=== PATIENT | female | born 1935 | race Caucasian/White ===

== ENCOUNTER → 2017-09-06 16:06 | Outpatient (CLI) | payer MEDICARE, SELFPAY ==
--- NOTE | 2017-09-06 16:11 | RAD_ITS ---
STUDY: X-RAY - RIGHT SHOULDER REASON FOR EXAM: Female, 82 years old. Pain TECHNIQUE: 4 view(s) of the shoulder. COMPARISON: None. FINDINGS: There is moderate degenerative arthrosis of the glenohumeral articulation. There is degenerative arthrosis of the acromioclavicular joint without inferior osseous spur formation. Normal acromion. Normal humeral head and visualized proximal humerus. The soft tissue structures are unremarkable. Normal visualized pulmonary apex. RAD/Shoulder min 2 Views IMPRESSION: Degenerative arthrosis Electronically Signed: Lavell Thoams MD at 9:00 EDT , Service support ,
== END ==
PROVIDERS: Family Provider Family Medicine; PCP Family Medicine; Visit Provider Family Medicine
DX: M25.511 Pain in right shoulder (principal); R30.0 Dysuria
CPT/HCPCS: 73030; 81002

== ENCOUNTER → 2017-09-06 19:00 | Outpatient (CLI) | payer MEDICARE, SELFPAY ==
[2017-09-06 19:17] LABS: Color, Urine Yellow (Yellow); Glucose, Dipstick Normal (Normal); Ketone-Dipstick 5 mg/dl (Negative); Leukocyte Esterase-Dipstick 100 /ul (Negative); Nitrite-Dipstick Negative (Negative); Occult Blood-Urine 10 /ul (Negative); Protein-Dipstick 30 mg/dl (Negative); Specific Gravity, Urine 1.025 (1.002-1.030); Urine Clarity Cloudy (Clear); Urine Urobilinogen Normal (Normal)
[2017-09-06 19:20] LABS: Urine Bilirubin Dipstick 1 mg/dL (Negative)
== END ==
PROVIDERS: Family Provider Family Medicine; PCP Family Medicine; Visit Provider Family Medicine
DX: R30.0 Dysuria (principal)
CPT/HCPCS: 81002

== ENCOUNTER → 2017-09-17 14:25 | Outpatient (CLI) | payer MEDICARE, SELFPAY | PROVIDERS: Family Provider Family Medicine; PCP Family Medicine; Visit Provider Family Medicine | DX: R30.0 Dysuria (principal) | CPT/HCPCS: 87086; 87088 ==

== ENCOUNTER → 2017-09-18 16:14 | Outpatient (CLI) | payer MEDICARE, SELFPAY ==
[2017-09-18 18:15] LABS: Anion Gap 7 (5-15); BUN 14 mg/dL (7-18); Calcium,Total 9.3 mg/dL (8.5-10.1); Chloride 104 mmol/L (98-107); Creatinine, Serum 0.93 mg/dL (0.55-1.02); EST Glomerular Filtration Rate 61 mL/min (>60); Est Glom Filt Rate - Afr Amer 74 mL/min (>60); Glucose 233 mg/dL (74-106); Potassium 3.8 mmol/L (3.5-5.1); Sodium Level 140 mmol/L (136-145)
== END ==
PROVIDERS: Family Provider Family Medicine; PCP Family Medicine; Visit Provider Family Medicine
DX: N39.0 Urinary tract infection, site not specified (principal)
CPT/HCPCS: 36415; 80048

== ENCOUNTER → 2017-11-13 15:54 | Outpatient (CLI) | payer MEDICARE, SELFPAY ==
[2017-11-13 18:55] LABS: Absolute Lymphocyte Count 0.99 X10^3/ul (0.83-4.51); Absolute Neutrophil Count 6.5 X10^3/uL (2.0-7.7); Basophil# 0.01 X10^3/uL; Basophil% 0.1 % (0-1); Eosinophil# 0.09 X10^3/uL; Eosinophils% 1.1 % (0-5); Hematocrit 40.4 % (37-47); Hemoglobin 13.7 g/dl (12.0-15.0); Lymphocyte # 0.99 X10^3/ul (4.0); Mean Corp Hgb Conc 33.9 g/gl (32-36); Mean Corpuscular Hgb 30.1 pg (27.0-32.0); Mean Corpuscular Volume 88.8 fL (81-99); Mean Platelet Vol. 11.4 fl (6.2-12.0); Monocyte# 0.67 X10^3/uL; Monocyte% 8.2 % (0-10); Neutrophil # 6.45 X10^3/uL (2.7-7.7); Neutrophil % 78.5 % (47-70); POSITIVE COUNT NO; POSITIVE DIFFERENTIAL NO; POSITIVE MORPHOLOGY NO; Platelet Count 257 K/mm3 (150-450); RBC Distribution Width SD 41.8 fl (35.1-43.9); Red Blood Count 4.55 M/mm3 (4.2-5.4); White Blood Count 8.2 K/mm3 (4.4-11.0)
[2017-11-13 19:04] LABS: ALB/GLOB Ratio 1.2 RATIO (0.9-2.4); AST(SGOT) 15 U/L (15-37); Alanine Aminotransfer ALT/SGPT 24 U/L (13-56); Albumin, Serum 3.9 g/dL (3.2-5.0); Alkaline Phosphatase 61 U/L (45-117); Anion Gap 10 (5-15); BUN 12 mg/dL (7-18); BUN/Creat Ratio 15.5 RATIO (10-20); Calcium,Total 9.5 mg/dL (8.5-10.1); Chloride 101 mmol/L (98-107); Creatinine, Serum 0.77 mg/dL (0.55-1.02); EST Glomerular Filtration Rate 76 mL/min (>60); Est Glom Filt Rate - Afr Amer 92 mL/min (>60); Globulin 3.3 g/dL (2.2-4.2); Glucose 117 mg/dL (74-106); Potassium 4.1 mmol/L (3.5-5.1); Protein, Total 7.2 g/dL (6.4-8.2); Sodium Level 136 mmol/L (136-145); Thyroid Stim Hormone (TSH) 4.37 uIU/mL (0.358-3.74)
== END ==
PROVIDERS: Family Provider Family Medicine; PCP Family Medicine
DX: R53.83 Other fatigue (principal)
CPT/HCPCS: 36415; 80053; 84443; 85025

== ENCOUNTER → 2017-12-05 12:52 | Outpatient (CLI) | payer MEDICARE, SELFPAY ==
--- NOTE | 2017-12-05 12:54 | CT_ITS ---
STUDY: CT CHEST WITHOUT CONTRAST REASON FOR EXAM: Female, 82 years old. Bilateral mastectomies RADIATION DOSAGE (If Supplied By Facility): CTDIvol = ( 17.53 ) mGy, DLP = ( 630.76 ) mGycm TECHNIQUE: Transaxial imaging was performed without the administration of intravenous contrast material. Individualized dose optimization techniques were used for this CT. COMPARISON: None. FINDINGS: : TRACHEA, THYROID, ESOPHAGUS: No tracheomalacia,stricture or wall thickening. Thyroid and esophagus are normal CARDIOVASCULAR SYSTEM: The thoracic aorta is normal in gross morphology. The pulmonary trunk and the left and right pulmonary arteries are also grossly normal. The heart is not enlarged. RYAN AND LYMPH NODES: No hilar masses and no mediastinal, hilar, axillary or supraclavicular adenopathy LUNGS, LOW-ATTENUATION: No traction bronchiectasis, honeycombing,, lung cysts or cavitations there are extensive centrilobular emphysematous changes in both lung LUNGS, HIGH ATTENUATION: No nodules/masses, ground glass opacities/consolidations or increased interstitial markings. Small areas of scarring in the right apex and a 7.6 mm nodule in the right apex LUNGS, MOSAIC/CRAZY PAVING: Not evident PLEURA AND CHEST WALL: No plural effusions, pneumothoraces,rib fractures or any osteolytic/osteoblastic changes . The soft tissue chest wall including the breasts are normal. Evidence of bilateral mastectomies UPPER ABDOMEN: A 1.4 cm right adrenal nodule. CT/Chest without Contrast IMPRESSION: Extensive centrilobular emphysematous changes in both lungs. There is a scar in the right apex and a 7.6 mm nodule also in the right apex. Evidence of bilateral mastectomies A 1.4 cm right adrenal nodule. Electronically Signed: Moi Luevano MD at 7:00 EDT Tel , Service support ,
== END ==
PROVIDERS: Family Provider Family Medicine; PCP Family Medicine; Referring Provider Internal Medicine Critical Care Medicine; Visit Provider Internal Medicine Critical Care Medicine
DX: R06.02 Shortness of breath (principal); T66.XXXA Radiation sickness, unspecified, initial encounter
CPT/HCPCS: 71250

== ENCOUNTER → 2018-01-10 13:29 | Outpatient (CLI) | payer MEDICARE, SELFPAY ==
--- NOTE | 2018-01-11 06:32 | PFTCOMP_ITS ---
COMPLETE PULMONARY FUNCTION TEST INTERPRETATION Brief HPI: Patient is an 82 year old female, currently under the care of myself, who presents to [facility] for complete pulmonary function tests secondary to diagnosis of dyspnea. Respiratory therapist reports good effort and reproducible results. Interpretation: Forced expiration spirometry shows a moderately-severe large airways obstructive ventilatory defect with an FEV1 of 59% predicted. There is no significant bronchodilator response by strict ATS criteria. Spirograms are of good quality and plateau slowly, indicating slowly emptying areas of the lungs. The respiratory flow volume loop shows decreased expiratory flow rates at all lung volumes consistent with airway obstruction. Lung volumes by body plethysmography show a normal total lung capacity at 5 L, 97% predicted. FRC and RV are elevated out of proportion. Lung volume measurements are consistent with air-trapping. Diffusion capacity by carbon monoxide is decreased at 57% predicted. The airway resistance is elevated. Compared to previous pulmonary function tests from December 28, 2016, there has been a significant improvement in DLCO by 17%. 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 There has been some improvement in DLCO compared to previous testing.
== END ==
PROVIDERS: Family Provider Family Medicine; PCP Family Medicine; Referring Provider Internal Medicine Critical Care Medicine; Visit Provider Internal Medicine Critical Care Medicine
DX: R06.00 Dyspnea, unspecified (principal)
CPT/HCPCS: 94060; 94726; 94729

== ENCOUNTER → 2018-01-22 13:18 | Outpatient (CLI) | payer MEDICARE, SELFPAY ==
[2018-01-16 13:11] VITALS: BMI 29.5
[2018-01-22 14:33] LABS: AST(SGOT) 14 U/L (15-37); Alanine Aminotransfer ALT/SGPT 22 U/L (13-56); Albumin, Serum 3.8 g/dL (3.2-5.0); Alkaline Phosphatase 51 U/L (45-117); Anion Gap 10 (5-15); BUN 12 mg/dL (7-18); BUN/Creat Ratio 16.1 RATIO (10-20); Bilirubin, Direct 0.15 mg/dL (0.00-0.30); Calcium,Total 9.1 mg/dL (8.5-10.1); Chloride 101 mmol/L (98-107); Cholesterol 140 mg/dL (200); Creatinine, Serum 0.74 mg/dL (0.55-1.02); EST Glomerular Filtration Rate 80 mL/min (>60); Est Glom Filt Rate - Afr Amer 96 mL/min (>60); Glucose 114 mg/dL (74-106); High Density Lipoprotein 61 mg/dL; Potassium 3.9 mmol/L (3.5-5.1); Protein, Total 6.8 g/dL (6.4-8.2); Sodium Level 138 mmol/L (136-145); Triglycerides 137 mg/dL; Very Low Density Lipoprotein 27 mg/dL (5-40)
--- OUTSIDE RECORDS SUMMARY | 2018-03-06 08:25 | XMS RPT_ITS ---
:1935 Author Organization OHIP Support Name Relationship Address Phone NAKITA ANDERSON Unavailable Unavailable + [place] [address] DYE, MARÍA Unavailable [address] + [place] [address] R Unavailable Unavailable Unavailable JUSTIN NAKITA Unavailable . + [place] [address] DYE, MARÍA Unavailable [address] + [place] [address] R Unavailable Unavailable Unavailable JUSTIN NAKITA Unavailable Unavailable + [place] [address] DYE, MARÍA Unavailable [address] + [place] [address] R Unavailable Unavailable Unavailable COBLENTZ, NAKITA Unavailable Unavailable + [place] [address] DYE, MARÍA Unavailable [address] + [place] [address] R Unavailable Unavailable Unavailable BUSHRATZ, NAKITA Unavailable Unavailable + [place] [address] DYE, MARÍA Unavailable [address] + [place] [address] R Unavailable Unavailable Unavailable INDRALENANNELIESE, NAKITA Unavailable . + [place] [address] DYE, MARÍA Unavailable . + [place] [address] R Unavailable Unavailable Unavailable JUSTIN, NAKITA Unavailable Unavailable + DYE, MARÍA Unavailable Unavailable + R Unavailable Unavailable Unavailable JUSTIN NAKITA Unavailable Unavailable + DYE, MARÍA Unavailable Unavailable + R Unavailable Unavailable Unavailable JUSTIN NAKITA Unavailable Unavailable + DYE, MARÍA Unavailable Unavailable + R Unavailable Unavailable Unavailable COBLENTZ, NAKITA Unavailable Unavailable + DYE, MARÍA Unavailable Unavailable + R Unavailable Unavailable Unavailable COBLENTZ, NAKITA Unavailable Unavailable + DYE, MARÍA Unavailable Unavailable + R Unavailable Unavailable Unavailable COBISABELLETZ, NAKITA Unavailable NA + [place], [place] DYE, MARÍA Unavailable NA + [place], [place] R Unavailable Unavailable Unavailable COBLENTZ, NAKITA Unavailable NA + [place], [place] DYE, MARÍA Unavailable NA + [place], [place] R Unavailable Unavailable Unavailable Care Team Providers Name Role Phone DANIELLE YANG (ADVERTISING DISPATCH CLERK) Referring Unavailable DANIELLE YANG (ADVERTISING DISPATCH CLERK) Attending Unavailable DANIELLE YANG (ADVERTISING DISPATCH CLERK) Referring Unavailable DANIELLE YANG (ADVERTISING DISPATCH CLERK) Attending Unavailable DANIELLE YANG (ADVERTISING DISPATCH CLERK) Referring Unavailable DANIELLE YANG ([facility]) Referring Unavailable Ethan Velasquez Attending Unavailable Kimble, Sacha Referring Unavailable Kimble, aScha Primary Care Unavailable Kimble, Sacha Attending Unavailable Kimble, Sacha Referring Unavailable Kimble, Sacha Primary Care Unavailable Kimble, Sacha Attending Unavailable Kimble, Sacha Primary Care Unavailable Kimble, Sacha Referring Unavailable Kimble, Sacha Attending Unavailable Kimble, Sacha Primary Care Unavailable Boo Kaiser Attending Unavailable Shyanne, Sacha Primary Care Unavailable Kimble, Sacha Attending Unavailable Kimble, Sacha Referring Unavailable Kimble, Sacha Primary Care Unavailable Kimble, Sacha Primary Care Unavailable KRISTA STRONG Attending Unavailable Karan, Constantino Attending Unavailable Kimble, Sacha Referring Unavailable Karan, Constantino Attending Unavailable Karan, Constantino Referring Unavailable Kimble, Sacha Primary Care Unavailable Karan, Constantino Attending Unavailable Karan, Constantino Referring Unavailable Kimble, Sacha Primary Care Unavailable Karan, Constantino Attending Unavailable Karan, Constantino Referring Unavailable Nakita Arzola Attending Unavailable Kimble, Sacha Referring Unavailable Kimble, Sacha Attending Unavailable Kimble, Sacha Referring Unavailable Kimble, Sacha Primary Care Unavailable PROBLEMS PROBLEMS DATE TYPE CONDITION / CODE ATTENDING STATUS SOURCE 01/22/2018 Unknown E11.9 - Type 2 Sacha Kimble Active [facility] diabetes mellitus Community without Hospital complications / Repository E11.9(ICD-10) 01/16/2018 Unknown R91.1 - Solitary Arzola, Active [place] pulmonary nodule / [facility] R91.1(ICD-10) Hospital Repository 01/14/2018 Unknown R06.02 - Shortness KaranConstantino ralph Active [place] of breath / Community R06.02(ICD-10) Hospital Repository 11/21/2017 Unknown T66.XXXA - Constantino Russo Active [place] Radiation sickness, Community unspecified, Hospital initial encounter / Repository T66.XXXA(ICD-10) 11/13/2017 Unknown R53.83 - Other KRISTA STRONG Active [facility] fatigue / Community R53.83(ICD-10) Hospital Repository 11/06/2017 Active Cough / R05(ICD-10) NA Active [facility] Repository 09/17/2017 Unknown R30.0 - Dysuria / Sacha Kimble Active [place] R30.0(ICD-10) [facility] Repository 09/06/2017 Unknown M25.511 - Pain in KimbleSacha العراقي Active [facility] right shoulder / Community M25.511(ICD-10) Hospital Repository 05/03/2017 Active Malignant neoplasm NA Active [facility] of [facility]-outer [place] quadrant of right Repository female breast / C50.411(ICD-10) 05/03/2017 Active Estrogen receptor NA Active [facility] positive status [facility] (ER+) / Repository Z17.0(ICD-10) 02/20/2017 Unknown I10 - Essential Eva, Ethan Active [place] (primary) Community hypertension / Hospital I10(ICD-10) Repository PROCEDURES PROCEDURES No Procedure Records FoundRESULTS RESULTS BASIC METABOLIC Collected: 01/22/2018 Status: F Source: [place] PROFILE (BMP) 1:26 PM [facility] REPOSITORY Order Comment: PATIENT IS NOT FASTING. TYPE CODE TESTS RESULT OUT OF RANGE REFERENCE UNITS LAB L501.0100 74-106 mg/dL High GLU 114 Result Comment: Fasting Glucose result from 100 to 125 mg/dL suggests IMPAIRED HOMEOSTASIS per A.D.A. criteria. Please note revised GLUCOSE reference range effective 2017. LAB L501.1000 7-18 mg/dL Normal BUN 12 LAB L501.1100 0.55-1.02 mg/dL Normal CREAT,SERUM 0.74 Result Comment: The validity of the calculated GFR AND GFRAA in patients over 70 years has not been determined. Clinical correlation is essential. LAB L501.1110 >60 mL/min Normal EST GFR 80 Result Comment: Non- GFR Calc LAB L501.1115 >60 mL/min Normal EST GFR - AA 96 Result Comment: GFR Calc LAB L501.1300 10-20 RATIO Normal BUN/CRE 16.1 LAB L501.2200 8.5-10.1 mg/dL CA Normal 9.1 LAB L501.5300 136-145 mmol/L NA Normal 138 LAB L501.5600 3.5-5.1 mmol/L K Normal 3.9 LAB L501.5900 98-107 mmol/L CL Normal 101 LAB L501.6100 21.0-32.0 mmol/L Normal CO2 27.0 LAB L501.6200 5-15 Normal GAP 10 Performed By: #### L500.2500, L500.3400, L500.4100 #### [facility] [address] [place], [address] LIVER PROFILE Collected: 01/22/2018 Status: F Source: [place] 1:26 PM [facility] REPOSITORY Order Comment: PATIENT IS NOT FASTING. TYPE CODE TESTS RESULT OUT OF RANGE REFERENCE UNITS LAB L501.1500 6.4-8.2 g/dL Normal T PROT 6.8 LAB L501.1800 3.2-5.0 g/dL Normal ALB 3.8 LAB L501.1950 2.2-4.2 g/dL Normal GLOB 3.0 LAB L501.4100 15-37 U/L Low AST 14 LAB L501.4305 45-117 U/L Normal ALK P 51 LAB L501.4405 13-56 U/L Normal ALT 22 LAB L501.4600 0.20-1.00 mg/dL Normal T BILI 0.60 LAB L501.4700 0.00-0.30 mg/dL Normal D BILI 0.15 Performed By: #### L500.2500, L500.3400, L500.4100 #### [facility] [address] [place], [address] LIPID PROFILE Collected: 01/22/2018 Status: F [facility] [facility] Order Comment: PATIENT IS NOT FASTING. TYPE CODE TESTS RESULT OUT OF RANGE REFERENCE UNITS LAB L501.4900 200 mg/dL Normal CHOL 140 Result Comment: <200 mg/dL Desirable 200-240 mg/dL Borderline >240 mg/dL High Risk LAB L501.5000 mg/dL Normal TRIG 137 Result Comment: The drugs N-Acetylcysteine and Metamizole may falsely depress this assay. Serum Triglycerides Reference Interval Normal <150 mg/dL Borderline high 150 - 199 mg/dL High 200 - 499 mg/dL Very High > or = 500 mg/dL LAB L501.6400 mg/dL Normal HDL 61 Result Comment: The drugs N-Acetylcysteine and Metamizole may falsely depress this assay. Reference Range HDL <40 mg/dL Low HDL Cholesterol HDL >or= 60 mg/dL High HDL Cholesterol LAB L501.6500 0-130 mg/dL Normal LDL 52 LAB L501.6600 5-40 mg/dL Normal VLDL 27 Performed By: #### L500.2500, L500.3400, L500.4100 #### [facility] [address] [place], [address] PULMONARY VISIT REPORT Observed: 01/16/2018 Status: F Source: [place] 4:34 PM [facility] REPOSITORY [facility] [place] [address] [place] [address] OFFICE VISIT Date of Service: 01/16/18 MR#: [id number] Acct: [id number] Name: RICO OSPINA Rep #: [id number] : 1935 Provider: Nakita Arzola Age/Sex: 82/F Location: [facility] Status: Signed Assessment AND Plan 1. Lung nodule R91.1 Plan New. Incidentally found on CT of the chest when evaluating for cause of shortness of breath. The patient also reports that recently she was diagnosed with 2 small thyroid nodules. This in conjunction with her weight loss and now lung nodule led me to discuss with the patient the possibility of a biopsy versus PET scan. The patient would like to be somewhat more conservative and reimage in 3 months with a repeat CT of the chest. She will then follow-up with Dr. Russo in 3 months to discuss test results. She has been encouraged to contact the office if any new or worsening symptoms in the meantime. Orders Orders: 2. 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 She was personally instructed on how to use the medication and was provided with a sample in the office today. We will follow-up in 3 months, at which time we can evaluate how she is responding to this medication. Annual influenza vaccination offered and declined. The patient has been encouraged to contact the office with any signs or symptoms of his COPD exacerbation prior to her follow-up visit. COPD exacerbation symptoms were reviewed. Patient and daughter convey understanding. Plan Detail Other Orders Orders: Other Medications New: tiotropium bromide 2.5 mcg/actuation (Spiriva Respimat) 2 puffs Inhalation QDAY 1 ea 1RF administer at approximately the same time(s) each day Refilled: Follow Up 3 Months ([facility]) HPI 1 M FU: Chief Complaint: Shortness of breath HPI Comments Details: This patient presents the office today to follow-up after recently completing test results and being placed on a new medication. She is in a wheelchair, on room air and accompanied by her daughter. She has not been seen in the ED or urgent care for any respiratory illnesses since her last office visit. She has not required any antibiotics or prednisone for any breathing problems. At the last office visit she was started on Brio. She has been compliant with Brio daily. She reports rinsing her mouth out after each use. She denies any medication side effects such as sore throat or thrush. Unfortunately, she feels as though the shortness of breath did not improve and is possibly worse since starting Brio. She has not used her rescue inhaler since starting the Brio, she was unsure if she could use the Ventolin rescue inhaler in conjunction with her maintenance medication. She continues to experience shortness of breath on exertion. She denies any shortness of breath with rest or conversation. She denies any cough, sputum production or hemoptysis. She is not experience any wheezing, chest tightness, chest pain or palpitations. She has not tried any [id number]-[id number] medications for her symptoms. She does report slow and persistent unintentional weight loss. Denies any easy bruising. Denies any hemoptysis, hematemesis, hematochezia or melena stools. Denies any lymphadenopathy. Denies any lower extremity edema. Denies any fever, chills or body aches. Function test completed on January 10, 2018 interpreted as showing irreversible moderately severe large airway obstructive ventilatory defect resulting in air trapping. There has been some improvement in the DLCO in comparison to last testing. FVC 73% of predicted, FEV1 58% of predicted, FEV1/FVC 59% of predicted, TLC 97% of predicted, RV 134% of predicted and DLCO 57% of predicted. CT of the chest completed on December 05, 2017 reviewed, noted to show extensive central lobar emphysematous changes in both lungs, there is a scar in the right apex and a 7.6 mm nodule in the right apex. Intake Vital Signs01/16/18 Height 5 ft 6 in 01/16/18 Weight: 183 lb Intake Visit Reasons: 1 M FU Chief Complaint: Shortness of breath on exertion Allergies No Known Allergies Allergy (Verified 11/21/17 12:01) Medications Naproxen Sodium [Aleve] 220 mg PO DAILY 06/18/14 [History Confirmed 11/21/17] Cartilage/Collagen/Bor/Hyalur [Move Free Ultra Tablet] 1 ea PO DAILY 03/01/16 [History Confirmed 11/21/17] omega 1-dds-ook-fish oil 1,000 mg (120 mg-180 mg) capsule See Rx Instructions PO QDAY ea 02/02/17 [History Confirmed 11/21/17] esomeprazole magnesium 40 mg capsule,delayed release 40 mg PO QDAY cap 02/16/17 [History Confirmed 11/21/17] fluticasone 100 mcg-vilanterol 25 mcg/dose powder for inhalation 1 inh INHALATION Q24H #60 ea 11/21/17 [Rx Confirmed 11/21/17] metformin 500 mg tablet 500 mg PO BID tab 11/21/17 [History Confirmed 11/21/17] albuterol sulfate HFA 90 mcg/actuation aerosol inhaler 2 puff INHALATION Q4H PRN #18 g 01/16/18 [Rx Confirmed 01/16/18] tiotropium bromide 2.5 mcg/actuation mist for inhalation 2 puff INHALATION QDAY #1 ea 01/16/18 [Rx Confirmed 01/16/18] PFS Medical History Hyperlipidemia (Chronic) Left atrial enlargement (Chronic) Dyspnea on exertion (Chronic) Breast cancer, left breast (Chronic) Diabetes mellitus (Chronic) Surgical History History of left heart catheterization (Chronic) H/O left mastectomy (Chronic 1998) H/O right mastectomy (Chronic 03/13/16) Family History Father CAD (coronary artery disease) Hypertension Myocardial infarction Social History Smoking Status: Former smoker Review of Systems Const CONSTITUTIONAL: Positive fatigue; negative anorexia, body ache, chills, daytime sleepiness, fever(s), night sweats, oral thrush, stops breathing during sleep, weight loss, sleeping in chair, weight loss, weight gain, frequent colds, seasonal allergies, other, headache(s) or orthopnea EETM Ear Nose Throat Mouth: Positive hearing normal; negative hard of hearing, hoarseness, dry mouth in morning, change in vision, itchy eyes, eye pain, swallowing Difficulty, ear pain, nose bleed, headache(s), mouth pain, nasal congestion, nasal discharge, post nasal drip, sinus pain, sinus pressure, sore throat or other Cardio Cardiovascular: Negative chest pain, chest pain at rest, chest pain with activity, irregular heart rhythm, edema, shortness of breath when lying down, palpitations, murmur or other Resp Respiratory: Positive as per HPI and shortness of breath shortness of breath: Positive with activity and worsening; negative pain with cough, wheezing, chest congestion, cough, chest tightness, pain on inspiration, inhalers, increase use of rescue inhalers, snoring, apnea or other Gastro Gastrointestional: Negative bloody stools, change in appetite, difficulty swallowing, reflux, hematemesis, melena stool, loose stool, constipation or other Genitourinary: Negative blood in urine, nocturia, pain with urination or other Musc Musculoskeletal: Negative body pain, back pain, neck pain or other Skin/Breast Skin/Breast: Negative dry skin, itching, rash, unusual bruising, breast lump or other Neuro Neurological: Negative restless legs, confusion, weakness or other Psych Psychocological: Negative abnormal sleep pattern, anxiety, thoughts of hurting self/others, hopelessness or other Lymph Lymphatic: Negative easy bleeding, easy bruising, swollen lymph nodes or other Exam Const Constitutional: Positive conversant, cooperative, in no acute respiratory distress, well developed, well nourished, good hygiene and frail appearing Head Head: Positive normocephalic and atraumatic; negative cyanosis of lips/distal nose Eyes Eye: Positive clear conjunctiva; negative nystagmus or scleral abnormality Ears Ear: Positive hearing normal and external ears normal; negative hard of hearing Nose Nose: Positive external nose normal and no nasal discharge; negative epistaxis Mouth Mouth: Positive oral mucosae normal, no lesions, dentures and crowded posterior oropharynx; negative post nasal drip, malodorous breath or oral thrush present Mallampati Score: III: Mallampati Score Neck Neck: Positive normal visual inspection, full ROM and trachea midline; negative lymphadenopathy, JVD or tender Chest Wall Chest: Positive normal inspection of the chest and symmetric chest movement; negative increased A/P diameter Resp lung sounds: Positive clear to auscultation, diminished, normal expiratory time and normal respiratory effort; negative wheezes, rhonchi, rales, dullness to percussion or wheeze present on forced exhalation Cardio Cardiac: Negative murmur, regular rate or regular rhythm GI GI: Positive normal to inspection; negative distended Genitourinary: Positive deferred Musc Musculoskeletal: Positive ROM normal and in a wheelchair; negative kyphosis or scoliosis Skin Pulmonary Skin Exam: Positive intact; negative rash Pulses Pulse: Yes pulses normal x4 extremities Extremities Extremities: Yes capillary refill normal, No clubbing, No cyanosis, No edema Neuro Neurologic: Yes conversant, Yes no focal neuro deficits, Yes normal concentration, Yes understands questions, Yes cooperative, Yes normal cognition, Yes normal coordination Lymph Lymphatic: No lymphadenopathy, No tenderness, No cervical adenopathy Psych Appearance: Positive grossly normal, eye contact and well kempt Mental Status: Positive mental status grossly normal Mood: Positive congruent mood Affect: Positive normal affect Office Procedures Inhaler Training Inhaler Training Procedure performed by: Nakita Arzola Inhaler Training: Yes personally trained on inhaler use, sample provided, first dose given in the office and continue to monitor Coding Level of Care Code Off vis,est,level 4 Diagnoses Lung nodule R91.1 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 01/16/18 1634 <Electronically signed by Nakita Arzola NP-C> Date Nakita Arzola [employer]-C Cosigner Signature: Date (if applicable) CC: Sacha Kimble MD PULMONARY FUNCTION Observed: 01/12/2018 Status: F Source: [place] REPORT COMP 5:53 AM [facility] REPOSITORY [facility] Pulmonary Services/Neurology [address] [place] [address] MR#: [id number] Acct: [id number] Name: RICO OSPINA Rep #: [id number] : 1935 82 From: Constantino Russo MD Referring Dr: Constantino Russo MD Status: REG CLI Ordering Dr: Date: Location: [facility] Sex: F C COMPLETE PULMONARY FUNCTION TEST INTERPRETATION Brief HPI: Patient is an 82 year old female, currently under the care of myself, who presents to [facility] for complete pulmonary function tests secondary to diagnosis of dyspnea. Respiratory therapist reports good effort and reproducible results. Interpretation: Forced expiration spirometry shows a moderately-severe large airways obstructive ventilatory defect with an FEV1 of 59% predicted. There is no significant bronchodilator response by strict ATS criteria. Spirograms are of good quality and plateau slowly, indicating slowly emptying areas of the lungs. The respiratory flow volume loop shows decreased expiratory flow rates at all lung volumes consistent with airway obstruction. Lung volumes by body plethysmography show a normal total lung capacity at 5 L, 97% predicted. FRC and RV are elevated out of proportion. Lung volume measurements are consistent with air-trapping. Diffusion capacity by carbon monoxide is decreased at 57% predicted. The airway resistance is elevated. Compared to previous pulmonary function tests from December 28, 2016, there has been a significant improvement in DLCO by 17%. 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 There has been some improvement in DLCO compared to previous testing. 01/12/18 0553 <Electronically signed by Constantino Russo MD> Date Constantino Russo MD CC: Constantino Russo MD; Sacha Kimble MD Date Dictated: 01/11/18628 Date Transcribed: 01/11/18628 Police Officer Booking: OBED Signed CHEST WITHOUT Observed: 12/05/2017 Status: F Source: [place] CONTRAST 12:54 PM [facility] REPOSITORY [facility] Imaging Services [address] [place] [address] Chest without Contrast MR#: [id number] Acct: [id number] Name: RICO OSPINA Rep #: [id number] : 1935 F 82 From: Moi Luevano MD PCP: Sacha Kimble MD Status: REG CLI Study: Chest without Contrast Date of Exam: 12/05/17 Exam# [id number] Ordering Dr: Constantino Russo MD STUDY: CT CHEST WITHOUT CONTRAST REASON FOR EXAM: Female, 82 years old. Bilateral mastectomies RADIATION DOSAGE (If Supplied By Facility): CTDIvol = ( 17.53 ) mGy, DLP = ( 630.76 ) mGycm TECHNIQUE: Transaxial imaging was performed without the administration of intravenous contrast material. Individualized dose optimization techniques were used for this CT. COMPARISON: None. FINDINGS: : TRACHEA, THYROID, ESOPHAGUS: No tracheomalacia,stricture or wall thickening. Thyroid and esophagus are normal CARDIOVASCULAR SYSTEM: The thoracic aorta is normal in gross morphology. The pulmonary trunk and the left and right pulmonary arteries are also grossly normal. The heart is not enlarged. RYAN AND LYMPH NODES: No hilar masses and no mediastinal, hilar, axillary or supraclavicular adenopathy LUNGS, LOW-ATTENUATION: No traction bronchiectasis, honeycombing,, lung cysts or cavitations there are extensive centrilobular emphysematous changes in both lung LUNGS, HIGH ATTENUATION: No nodules/masses, ground glass opacities/consolidations or increased interstitial markings. Small areas of scarring in the right apex and a 7.6 mm nodule in the right apex LUNGS, MOSAIC/CRAZY PAVING: Not evident PLEURA AND CHEST WALL: No plural effusions, pneumothoraces,rib fractures or any osteolytic/osteoblastic changes . The soft tissue chest wall including the breasts are normal. Evidence of bilateral mastectomies UPPER ABDOMEN: A 1.4 cm right adrenal nodule. CT/Chest without Contrast IMPRESSION: Extensive centrilobular emphysematous changes in both lungs. There is a scar in the right apex and a 7.6 mm nodule also in the right apex. Evidence of bilateral mastectomies A 1.4 cm right adrenal nodule. Electronically Signed: Moi Luevano MD at 7:00 EDT Tel , Service support , CC: Constantino Russo MD; Sacha Kimble MD Police Officer Booking: Signed PULMONARY VISIT REPORT Observed: 11/21/2017 Status: F Source: [place] 3:53 PM [facility] REPOSITORY Pulmonary Medicine of [address] [place] [address] OFFICE VISIT Date of Service: 11/21/17 MR#: [id number] Acct: [id number] Name: RICO OSPINA Rep #: [id number] : 1935 Provider: Constantino Russo MD Age/Sex: 82/F [facility] Status: Signed Assessment AND Plan Problems 1. Shortness of breath R06.02 2. Radiation adverse effect T66.XXXA Plan Unclear etiology at this time. Patient is reporting significant worsening in overall condition compared to previous. Patient will be given a trial of Brio therapy. Patient was personally instructed on inhaler use by myself. We will also obtain a complete pulmonary function test for quantification and clarification of lung function. If there is been no significant change compared to previous, cardiac workup may be indicated. Patient does report a history of mitral regurgitation. We will also obtain a CT scan of the chest for evaluation of radiation injury leading to worsening in shortness of breath. Patient also is at risk for recurrent of malignancy given an 8 kg weight loss since January 2017. Initiate Breo. Obtain CT without contrast and complete pulmonary function test Orders Orders: Medications New: Discontinued: fluticasone-salmeterol 500-50 mcg/dose Discontinued Reaso2 inhalations Inhalation BID n: Order Changed HPI Shortness of breath: Chief Complaint: Shortness of breath on exertion Details: Patient is an 82-year-old female, currently under the care of Dr. Kimble, who presents for evaluation secondary to worsening shortness of breath on exertion. Patient has been seen previously by this practice, but was lost to follow-up over the last year and a half secondary to doing okay. Patient reports that in July she started to have issues with recurrent bladder infections, diarrhea and fatigue. Patient is also noted significant worsening in her dyspnea on exertion. Patient reports that she was transitioned from pro-air to Ventolin therapy. Patient did not refill her Advair therapy and has noted that her exercise tolerance has changed significantly. Patient states she has been using her albuterol every 4 hours. Patient denied any complications with Advair leading to noncompliance. Patient does report a cough on a daily basis. Patient reports her exercise tolerance at approximately 15-30 feet. Patient does state that she has had breast cancer in the past and received 29 out of 30 radiation treatments. Patient states that she had this completed in 2016, but her daughter believes this was 2017. Patient denies any hemoptysis. Patient does report stiffening of the skin over the right breast. Patient also reports a weight loss of approximately 13 pounds over the last 3 months. Patient attributes this to the diarrhea and lack of adequate appetite. Patient states she has been using Flonase and [place] spray with limited response. Documentation reviewed 12 pages of documentation were reviewed including old office visit. Patient did have a complete PFT completed in June 2016 showing a mild restrictive ventilatory defect with reduction diffusing capacity out of proportion patient was requested to have a polysomnogram, but it appears as though this was not completed. Previous notes indicate that radiation was in February 2016. HPI Comments Details: Intake Vital Signs11/21/17 Height 5 ft 6 in 11/21/17 Weight: 84.822 kg Intake Visit Reasons: Shortness of breath Hand Straightener Required: No Is patient in pain?: No Allergies No Known Allergies Allergy (Verified 11/21/17 12:01) Medications Naproxen Sodium [Aleve] 220 mg PO DAILY 06/18/14 [History Confirmed 11/21/17] Cartilage/Collagen/Bor/Hyalur [Move Free Ultra Tablet] 1 ea PO DAILY 03/01/16 [History Confirmed 11/21/17] omega 2-xfq-fgg-fish oil 1,000 mg (120 mg-180 mg) capsule See Rx Instructions PO QDAY ea 02/02/17 [History Confirmed 11/21/17] esomeprazole magnesium 40 mg capsule,delayed release 40 mg PO QDAY cap 02/16/17 [History Confirmed 11/21/17] albuterol sulfate HFA 90 mcg/actuation aerosol inhaler 2 puff INHALATION Q4H PRN #18 g 11/07/17 [Rx Confirmed 11/21/17] fluticasone 100 mcg-vilanterol 25 mcg/dose powder for inhalation 1 inh INHALATION Q24H #60 ea 11/21/17 [Rx Confirmed 11/21/17] metformin 500 mg tablet 500 mg PO BID tab 11/21/17 [History Confirmed 11/21/17] PFSH Medical History Hyperlipidemia (Chronic) Left atrial enlargement (Chronic) Dyspnea on exertion (Chronic) Breast cancer, left breast (Chronic) Diabetes mellitus (Chronic) Surgical History History of left heart catheterization (Chronic) H/O left mastectomy (Chronic 1998) H/O right mastectomy (Chronic 03/13/16) Family History Father CAD (coronary artery disease) Hypertension Myocardial infarction Social History Smoking Status: Former smoker Review of Systems Const CONSTITUTIONAL: Positive weight loss and fatigue; negative anorexia, body ache, chills, daytime sleepiness, fever(s), night sweats, oral thrush, stops breathing during sleep, sleeping in chair, weight loss, weight gain, frequent colds, seasonal allergies, other, headache(s) or orthopnea EETM Ear Nose Throat Mouth: Positive hearing normal; negative hard of hearing, hoarseness, dry mouth in morning, change in vision, itchy eyes, eye pain, swallowing Difficulty, ear pain, nose bleed, headache(s), mouth pain, nasal congestion, nasal discharge, post nasal drip, sinus pain, sinus pressure, sore throat or other Cardio Cardiovascular: Positive murmur (Grade 2 out of 6 diastolic murmur noted at the apex); negative chest pain, chest pain at rest, chest pain with activity, irregular heart rhythm, edema, shortness of breath when lying down, palpitations or other Resp Respiratory: Positive as per HPI, shortness of breath shortness of breath: Positive worsening and with activity, cough cough: Positive non-productive and inhalers; negative pain with cough, wheezing, chest congestion, chest tightness, pain on inspiration, increase use of rescue inhalers, snoring, apnea or other Gastro Gastrointestional: Positive change in appetite and loose stool; negative bloody stools, difficulty swallowing, reflux, hematemesis, melena stool, constipation or other Genitourinary: Negative blood in urine, nocturia, pain with urination or other Musc Musculoskeletal: Negative body pain, back pain, neck pain or other Skin/Breast Skin/Breast: Negative dry skin, itching, rash, unusual bruising, breast lump or other Neuro Neurological: Negative restless legs, confusion, weakness or other Psych Psychocological: Negative abnormal sleep pattern, anxiety, thoughts of hurting self/others, hopelessness or other Lymph Lymphatic: Negative easy bleeding, easy bruising, swollen lymph nodes or other Exam Const Constitutional: Positive conversant, cooperative, in no acute respiratory distress, well developed, well nourished, good hygiene, frail appearing and obese; negative wearing supplemental oxygen or ill appearing Head Head: Positive normocephalic and atraumatic; negative cyanosis of lips/distal nose, frontal sinus tenderness or maxillary sinus tenderness Eyes Eye: Positive clear conjunctiva; negative nystagmus, scleral abnormality or cataract present Ears Ear: Positive hearing normal and external ears normal; negative hard of hearing Nose Nose: Positive external nose normal, septum normal and clear nasal discharge; negative epistaxis or nasal polyp Mouth Mouth: Positive oral mucosae normal, no lesions, dentures and crowded posterior oropharynx; negative post nasal drip, malodorous breath or oral thrush present Mallampati Score: III: Mallampati Score Neck Neck: Positive normal visual inspection, full ROM and trachea midline; negative lymphadenopathy or JVD Chest Wall Chest: Positive symmetric chest movement and increased A/P diameter; negative crepitus or tenderness Resp lung sounds: Positive wheeze present on forced exhalation, prolonged expiratory time and diminished; negative wheezes, rhonchi, rales, use of accessory muscles or dullness to percussion Cardio Cardiac: Positive murmur (Grade 2 out of 6 diastolic murmur noted at the apex), regular rate, regular rhythm, S1 normal and S2 normal GI GI: Positive normal to inspection, normal bowel sounds and obese; negative distended, ascites or epigastric tenderness Genitourinary: Positive deferred Musc Musculoskeletal: Positive using an assistive device for ambulation and kyphosis; negative scoliosis Skin Pulmonary Skin Exam: Positive intact and dermal atrophy; negative rash, lesion, ulcers or erythema Pulses Pulse: Yes radial pulses present Extremities Extremities: Yes capillary refill normal, No clubbing, No cyanosis, No edema, No stasis dermatitis Neuro Neurologic: Yes conversant, Yes no focal neuro deficits, Yes normal coordination, Yes normal concentration, Yes cooperative, Yes normal cognition, Yes understands questions Lymph Lymphatic: No lymphadenopathy Psych Appearance: Positive grossly normal Mental Status: Positive mental status grossly normal Mood: Positive congruent mood Affect: Positive normal affect Office Procedures Inhaler Training Inhaler Training Procedure performed by: Constantino Russo Inhaler Training: Yes personally trained on inhaler use, sample provided, expresses understanding and continue to monitor; no first dose given in the office Coding Level of Care Code Off vis,est,level 5 Diagnoses Shortness of breath R06.02 Radiation adverse effect T66.XXXA 11/21/17 1553 <Electronically signed by Constantino Russo MD> Date Constantino Russo MD Cosigner Signature: Date (if applicable) CC: Sacha Kimble MD CBC W/DIFF, AUTOMATED Collected: 11/13/2017 Status: F Source: [place] 4:17 PM [facility] REPOSITORY TYPE CODE TESTS RESULT OUT OF RANGE REFERENCE UNITS LAB L100.1000 4.4-11.0 K/mm3 Normal WBC 8.2 LAB L100.1200 4.2-5.4 M/mm3 Normal RBC 4.55 LAB L100.1300 12.0-15.0 g/dl Normal HGB 13.7 LAB L100.1400 37-47 % Normal HCT 40.4 LAB L100.1500 81-99 fL Normal MCV 88.8 LAB L100.1600 27.0-32.0 pg Normal MCH 30.1 LAB L100.1700 32-36 g/gl Normal MCHC 33.9 LAB L100.1810 11.6-14.6 % Normal RDW CV 13.0 LAB L100.1820 35.1-43.9 fl Normal RDW SD 41.8 LAB L100.1900 150-450 K/mm3 Normal PLT 257 LAB L100.2000 6.2-12.0 fl Normal MPV 11.4 LAB L100.2100 47-70 % High NEUT% 78.5 LAB L100.2200 19-41 % Low LY% 12.0 LAB L100.2300 0-10 % Normal MONO% 8.2 LAB L100.2400 0-5 % Normal EO% 1.1 LAB L100.2500 0-1 % Normal BASO% 0.1 LAB L100.2550 0.0-0.9 % Normal IM GRAN % 0.100 Result Comment: IG% - Immature Granulocytes (promyelocytes, myelocytes and metamyelocytes) > 1% indicates that a LEFT SHIFT is Present. LAB L100.2620 2.0-7.7 X10 3/uL Normal Absolute Neut 6.5 LAB L100.2720 0.83-4.51 X10 3/ul Normal Absolute Lymph 0.99 Performed By: #### L100.0100 #### [facility] [address] [place], [place], [id number] COMPREHENSIVE METABOLIC Collected: 11/13/2017 Status: F Source: [facility] 4:17 PM [facility] REPOSITORY TYPE CODE TESTS RESULT OUT OF RANGE REFERENCE UNITS LAB L501.0100 74-106 mg/dL High GLU 117 Result Comment: Fasting Glucose result from 100 to 125 mg/dL suggests IMPAIRED HOMEOSTASIS per A.D.A. criteria. Please note revised GLUCOSE reference range effective 2017. LAB L501.1000 7-18 mg/dL Normal BUN 12 LAB L501.1100 0.55-1.02 mg/dL Normal CREAT,SERUM 0.77 Result Comment: The validity of the calculated GFR AND GFRAA in patients over 70 years has not been determined. Clinical correlation is essential. LAB L501.1110 >60 mL/min Normal EST GFR 76 Result Comment: Non- GFR Calc LAB L501.1115 >60 mL/min Normal EST GFR - AA 92 Result Comment: GFR Calc LAB L501.1300 10-20 RATIO Normal BUN/CRE 15.5 LAB L501.1500 6.4-8.2 g/dL T Normal PROT 7.2 LAB L501.1800 3.2-5.0 g/dL Normal ALB 3.9 LAB L501.1950 2.2-4.2 g/dL Normal GLOB 3.3 LAB L501.2000 0.9-2.4 RATIO Normal A/G 1.2 LAB L501.2200 8.5-10.1 mg/dL CA Normal 9.5 LAB L501.4100 15-37 U/L Normal AST 15 Result Comment: Slight Hemolysis, Result may be falsely increased. LAB L501.4305 45-117 U/L Normal ALK P 61 LAB L501.4405 13-56 U/L Normal ALT 24 LAB L501.4600 0.20-1.00 mg/dL Normal T BILI 0.60 LAB L501.5300 136-145 mmol/L Normal NA 136 LAB L501.5600 3.5-5.1 mmol/L Normal K 4.1 Result Comment: Slight Hemolysis, Result may be falsely increased. LAB L501.5900 98-107 mmol/L Normal CL 101 LAB L501.6100 21.0-32.0 mmol/L Normal CO2 25.0 LAB L501.6200 5-15 Normal GAP 10 Performed By: #### L500.4050, L501.9520 #### [facility] [address] [place], [address] THYROID STIM HORMONE Collected: 11/13/2017 Status: F Source: [place] ([facility]) 4:17 PM [facility] REPOSITORY TYPE CODE TESTS RESULT OUT OF RANGE REFERENCE UNITS LAB L501.9520 0.358-3.74 uIU/mL High TSH 4.37 Performed By: #### L500.4050, L501.9520 #### [facility] [place], [address] XR CHEST 2V FRONTAL/LAT Observed: 11/06/2017 Status: F Source: [place] 3:06 PM [facility] REPOSITORY * * *Final Report* * * DATE OF EXAM: Nov 06 2017 3:06PM WRX [id number] - XR CHEST 2V FRONTAL/LAT / PROCEDURE REASON: multiple diagnoses * * * * Physician Interpretation * * * * EXAMINATION: CHEST RADIOGRAPH (2 VIEW FRONTAL and LATERAL) CLINICAL HISTORY: Malignant neoplasm of upper-outer quadrant of right female breast Estrogen receptor positive status (ER+) MQ: XC2_5 Comparison: 09/14/2014 RESULT: Lungs are hyperinflated. Stable calcified granuloma in the right upper lung. No pleural effusion. No pneumothorax. Degenerative changes in thoracic spine. Stable cardiomediastinal silhouette. Atherosclerotic calcifications along the aortic arch. Degenerative changes in the thoracic spine. Surgical clips in the right axilla, new since prior exam. IMPRESSION: Hyperinflated lungs otherwise no acute process. Police Officer Booking: PSCB Transcribe Date/Time: Nov 06 2017 5:59P Dictated by : LOKI HILLS MD This examination was interpreted and the report reviewed and electronically signed by: LOKI HILLS MD on Nov 06 2017 6:00PM EST [id number] [id number] Observed: 11/06/2017 Status: COMPLETED Source: [place] 2:57 PM [facility] REPOSITORY HNO ID: [id number] Author: Pauline Dickens Rt Service: (none) Author Type: (none) Type: Progress Notes Filed: 11/06/2017 3:07 PM Note Text: Radiology Service Progress Note PATIENT NAME: Rico Ospina DATE OF SERVICE: November 06, 2017 TIME: 2:58 PM PATIENT IDENTITY VERIFICATION COMPLETED USING TWO (2) METHODS: Patient confirmed name verbally and Date of . PATIENT GENDER DATA: Female. status: : No status: NO. PATIENT RELEVANT IMPLANT DATA REVIEWED: Not Applicable RADIOLOGY DEPARTMENT: General X-ray: Exam(s) Completed: Chest X-Ray PERIPHERAL IV DATA: Not applicable SIGNED BY: Pauline Allison November 06, 2017 2:58 PM CNOVSP Observed: 11/06/2017 Status: COMPLETED Source: [place] 2:00 PM [facility] REPOSITORY Visit (SP) Office ([place]) RICO OSPINA ([id number]) 1935 F Date Time Provider Department 11/06/17 2:00 PM DANIELLE YANG (MELINA) [place] During your visit today, we recorded the following information about you: Temperature Pulse Blood pressure Weight 98.6 degrees 83/minute 143/72 86.4 kg Danielle Yang APRN.CNP 11/08/2017 9:43 AM Signed Chief Complaint Patient presents with: Established Patient HPI: Rico Ospina is a 82 year old female who presents here today for breast cancer. Per Dr. Monroy's previous note: H/o abnormal mammogram and a right breast mass. Patient was previously diagnosed with cancer of the left breast 18 years ago. ?? She had a stage IC, ER-positive, MS-positive, HER-2 negative breast cancer. The patient had a modified radical mastectomy followed by observation only. She did not have radiation therapy or endocrine therapy. Since I last saw the patient, her sister was diagnosed with stomach cancer and her mother was diagnosed with ovarian cancer. She had not had a screening mammogram for over 2 years. Patient had a partial hysterectomy and subsequent oophorectomy many years ago. ?? She had complaint of a palpable breast mass for 3 months. The patient notes a mass in the 10 o'clock of her right breast. The patient had a mammogram on January 26, 2016 and ultrasound on February 10, 2016 which demonstrated no mammographic rmhybjbqmroio-TE-ASIE category 2 but an abnormality in the 3+ position 10:00 on ultrasound of the right breast which looked irregular with shadowing. BI-RADS 4. She does perform a self breast exam routinely. She notes no skin changes. She denies nipple discharge. She notes no axillary masses.? ?? She was referred to Dr. Jorge for an ultrasound-guided core breast biopsy in the office. This returned as invasive ductal cancer. Patient underwent a right modified radical mastectomy with sentinel lymph node injection on March 14, 2016. The pathology demonstrated: ?? FROZEN SECTION DIAGNOSIS A. Axillary lymph nodes right, biopsy: One out of four lymph nodes, positive for metastatic carcinoma. ?? SJ:kirsten 03/13/16 ?? MICROSCOPIC DIAGNOSIS A. Right axillary sentinel lymph nodes, biopsy: One out of four lymph nodes, positive for metastatic carcinoma. B. Right breast, radical mastectomy: Invasive poorly differentiated ductal carcinoma. See complete cancer check list below. ?? AM:kirsten 03/15/16 ?? COMMENT INVASIVE BREAST CANCER SUMMARY: ?? Procedure: Radical mastectomy Specimen: Complete breast Specimen integrity: Single intact specimen. Specimen size: 25 x 23 x 4 cm Specimen laterality: Right breast Invasive tumor: Tumor size: 4 x 3 x 2.5 cm Tumor focality: Single focus of invasive tumor Macroscopic and Microscopic extent of tumor: Skin: Free of tumor Nipple: Free of tumor Skeletal muscle: Not present. Histologic type of invasive carcinoma: Invasive ductal carcinoma Histologic Grade: Peterson grade: Glandular/tubular differentiation score: 3 Nuclear pleomorphism score: 3 Mitotic count score: 2 Overall grade ??3 (Total score of 8) Margins: Uninvolved by invasive carcinoma. 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 Estimated size (extent) of DCIS: 5 x 3 x 2 mm Number of blocks with DCIS: 4 of 22 Architectural patterns: Solid, cribriform and comedo Nuclear grade: Grade 3 (high grade) Necrosis: Present, multifocal Lobular carcinoma in situ (LCIS): Not present Lymph nodes: Number of sentinel lymph nodes examined ??4 Total number of lymph nodes examined (sentinel and nonsentinel) ??18 Number of lymph nodes with macrometastases ??2 Number of lymph nodes with micrometastases ??2 Number of lymph nodes with isolated tumor cells ??0 Size of largest metastatic deposit ??12 mm Extranodal extension ??focally present See specimen A for sentinel lymph nodes. Microcalcifications ??present in both carcinoma and non-neoplastic tissue Treatment effect - no known presurgical therapy Additional pathologic findings: Fibrocystic change, focal intraductal hyperplasia without atypia and intraductal papilloma. Ancillary studies: Previously performed on same tumor ([id number] / [id number]). ER: positive, >95% MS: positive, >95% Her2 denzel: negative 1+ ([facility]) ?? PATHOLOGIC STAGE: pT2 N2a Mx ?? ? RADIATION:05/18/16 to 06/30/16 ? ? Previous therapy:femara Began after completed radiation. ? ? Changed to arimidex pt. stopped prematurely d/t fatigue. ? I had a bladder infection in August. And I had cataract surgery. I haven't taken the arimidex in the past 2 months. I've been seeing my family . They told me that I have sugar and he started me on metformin. I've had diarrhea since then. He cut my dose in half. Pt. here today with her daughter. They told my mom that she has diabetes but they have not done any teaching with her. She has an appt. next week for that. I'm sure her blood sugars are high. But we have nothing to check them with. ? Appetite:I don't have much of an appetite.?10# wt. loss since April 2017. Energy level:no energy Denies fevers. Recent UTI in August. Resp:+dry cough, denies sob at rest, spring +asthma Cardiac:denies chest pain/palpitations GI:denies abd pain, denies n/v, +diarrhea every time I try to eat. :denies dysuria/hematuria-recent UTI Extrem:denies pain currently, +arthritis to knees/R shoulder- xray done by PCP-per pt. it showed arthritis Endo:denies hot flashes Neuro:denies symptoms of neuropathy Skin:denies rashes/lesions Heme:denies bleeding The ROS is otherwise negative. Past medical history, appointments, medications, allergies reviewed. No changes. EXAM: BP 143/72 Pulse 83 Temp 37 ?C (98.6 ?F) (Temporal Artery) Wt 86.4 kg (190 lb 8 oz) BMI 31.17 kg/m? APPEARANCE Well appearing, alert, in no acute distress, well- hydrated, well nourished. HEART RRR with normal S1 and S2, no murmurs LUNG clear to auscultation BREAST FEMALE b/l mastectomy scars, no nodule LYMPH NODES No cervical lymphadenopathy, No supraclavicular lymphadenopathy and No axillary lymphadenopathy. ABDOMEN bowel sounds normoactive, no bruits, soft, non-tender, non-distended, without organomegaly or palpable masses EXTREMITIES No edema NEURO Awake, alert and oriented x 3, Normal gait and No involuntary motions. SKIN Skin color, texture, turgor normal, no suspicious rashes or lesions ASSESSMENT/PLAN: 1. Malignant neoplasm of upper-outer quadrant of right breast in female, estrogen receptor positive (HCC) - ICD9: 174.4, V86.0, ICD10: C50.411, Z17.0 (primary diagnosis) 2. Cough in adult - ICD9: 786.2, ICD10: R05 Stage IIIA, ?pT2 N2a Mx, ER: positive, >95%, MS: positive, >95% , Her2 denzel: negative 1+ ([facility]). 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 Will get a CXR today. - Pt. did not tolerate AI's-stopped arimidex 2 months ago. - Pt. would like to try femara again. Rx done. - Pt. will call and follow up with PCP re:diarrhea, DM teaching. - CXR today. - ?Follow up in 6 months-pending CXR. - ?Pt. aware to call office with any questions/concerns. The patient indicates understanding of these issues and agrees with the plan. Danielle Yang APRN.[facility] Referring Provider: DANIELLE YANG ([facility]) [[id number]] Allergies As of Date: 11/06/2017 Noted Allergy Reaction SEASONAL ALLERGIES 04/21/2016 5 - Intolerance Date Reviewed: 11/06/2017 Reviewed by: Danielle ([facility]) Celia - Fully Assessed Reason for Visit: Established Patient [175] Primary Visit Diagnosis:Malignant neoplasm of upper-outer quadrant of right breast in female, estrogen receptor positive (HCC) [C50.411, Z17.0] Other Visit Diagnosis:Cough in adult [R05] Order(s):letrozole (FEMARA) 2.5 mg tabletTake 1 tablet by mouth once daily.Disp: 90 tabletRfl: 3 XR CHEST 2V FRONTAL/LAT [[id number]] Order #: [id number] FUTURE Follow-up and Disposition History Recorded Prescriptions as of 11/06/2017 Sig: COENZYME Q10 100 MG CAPSULE Take 100 mg by mouth once gemini* NAPROXEN 500 MG TABLET Take 500 mg by mouth as neede* OSTEO BI-FLEX ORAL Take 1 tablet by mouth twice * METFORMIN 1,000 MG TABLET Take 1/2 tablet by mouth twic* SODIUM CHLORIDE 0.65 % NASAL * Use 1 [place] in the nose as ne* ERGOCALCIFEROL (VITAMIN D2) 5* Take 1 capsule by mouth once * ALBUTEROL SULFATE HFA 90 MCG/* Inhale 2 Puffs as instructed * LETROZOLE 2.5 MG TABLET Take 1 tablet by mouth once d* Medication notes this encounter ANASTROZOLE 1 MG TABLET >> Selvin Yeboah MA 11/06/2017 2:05 PM >> SELVIN YEBOAH MA Nov 06, 2017 2:05 PM Not taking NAPROXEN SODIUM 220 MG CAPSULE >> Selvin Yeboah MA 11/06/2017 2:05 PM >> SELVIN YEBOAH MA Nov 06, 2017 2:05 PM No longer taking. OMEGA-3 FATTY ACIDS-VITAMIN E 1,000 MG CAPSULE >> Selvin Yeboah MA 11/06/2017 2:06 PM >> SELVIN YEBOAH MA Nov 06, 2017 2:06 PM No longer taking. Problem List As Of Date 11/06/2017 Noted Resolved MALIGN NEOPL BREAST NOS [C50.919] INVALID FOR* More... GENERAL OSTEOARTHROSIS [M15.9] INVALID FOR* DEPRESSIVE DISORDER NEC [F32.9] INVALID FOR* BONE AND CARTILAGE DIS NOS [M89.9, M94.9] INVALID FOR* More... URGE INCONTINENCE [N39.41] INVALID FOR* CHOLELITHIASIS NOS [K80.20] INVALID FOR*03/20/2005 Moderate persistent asthma [J45.40] INVALID FOR* Chronic rhinitis [J31.0] INVALID FOR* Malignant neoplasm of upper-outer quadrant of r*INVALID FOR* Status post right mastectomy [Z90.11] INVALID FOR* Decreased range of motion of right shoulder [M2*INVALID FOR* History of left breast cancer [Z85.3] INVALID FOR* Family history of breast cancer in first degree*INVALID FOR* Family history of ovarian cancer [Z80.41] INVALID FOR* Multinodular goiter [E04.2] INVALID FOR* Vitamin D deficiency [E55.9] INVALID FOR* Malignant neoplasm of upper-outer quadrant of r*INVALID FOR* Encounter Status:Closed by DANIELLE YANG CNP on 11/08/17 PROGRESS Observed: 11/06/2017 Status: COMPLETED Source: [place] 1:58 PM [facility] [place] REPOSITORY O ID: [id number] Author: Danielle (Melina) Celia Service: (none) Author Type: Nurse Practitioner Type: Progress Notes Filed: 11/08/2017 9:43 AM Note Text: Chief Complaint Patient presents with: Established Patient HPI: Rico Ospina is a 82 year old female who presents here today for breast cancer. Per Dr. Monroy's previous note: H/o abnormal mammogram and a right breast mass. Patient was previously diagnosed with cancer of the left breast 18 years ago. ?? She had a stage IC, ER-positive, MS-positive, HER-2 negative breast cancer. The patient had a modified radical mastectomy followed by observation only. She did not have radiation therapy or endocrine therapy. Since I last saw the patient, her sister was diagnosed with stomach cancer and her mother was diagnosed with ovarian cancer. She had not had a screening mammogram for over 2 years. Patient had a partial hysterectomy and subsequent oophorectomy many years ago. ?? She had complaint of a palpable breast mass for 3 months. The patient notes a mass in the 10 o'clock of her right breast. The patient had a mammogram on January 26, 2016 and ultrasound on February 10, 2016 which demonstrated no mammographic jdpdfyspchnoe-GZ-JTPF category 2 but an abnormality in the 3+ position 10:00 on ultrasound of the right breast which looked irregular with shadowing. BI-RADS 4. She does perform a self breast exam routinely. She notes no skin changes. She denies nipple discharge. She notes no axillary masses.? ?? She was referred to Dr. Jorge for an ultrasound-guided core breast biopsy in the office. This returned as invasive ductal cancer. Patient underwent a right modified radical mastectomy with sentinel lymph node injection on March 14, 2016. The pathology demonstrated: ?? FROZEN SECTION DIAGNOSIS A. Axillary lymph nodes right, biopsy: One out of four lymph nodes, positive for metastatic carcinoma. ?? SJ:kirsten 03/13/16 ?? MICROSCOPIC DIAGNOSIS A. Right axillary sentinel lymph nodes, biopsy: One out of four lymph nodes, positive for metastatic carcinoma. B. Right breast, radical mastectomy: Invasive poorly differentiated ductal carcinoma. See complete cancer check list below. ?? AM:kirsten 03/15/16 ?? COMMENT INVASIVE BREAST CANCER SUMMARY: ?? Procedure: Radical mastectomy Specimen: Complete breast Specimen integrity: Single intact specimen. Specimen size: 25 x 23 x 4 cm Specimen laterality: Right breast Invasive tumor: Tumor size: 4 x 3 x 2.5 cm Tumor focality: Single focus of invasive tumor Macroscopic and Microscopic extent of tumor: Skin: Free of tumor Nipple: Free of tumor Skeletal muscle: Not present. Histologic type of invasive carcinoma: Invasive ductal carcinoma Histologic Grade: Peterson grade: Glandular/tubular differentiation score: 3 Nuclear pleomorphism score: 3 Mitotic count score: 2 Overall grade ??3 (Total score of 8) Margins: Uninvolved by invasive carcinoma. 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 Estimated size (extent) of DCIS: 5 x 3 x 2 mm Number of blocks with DCIS: 4 of 22 Architectural patterns: Solid, cribriform and comedo Nuclear grade: Grade 3 (high grade) Necrosis: Present, multifocal Lobular carcinoma in situ (LCIS): Not present Lymph nodes: Number of sentinel lymph nodes examined ??4 Total number of lymph nodes examined (sentinel and nonsentinel) ??18 Number of lymph nodes with macrometastases ??2 Number of lymph nodes with micrometastases ??2 Number of lymph nodes with isolated tumor cells ??0 Size of largest metastatic deposit ??12 mm Extranodal extension ??focally present See specimen A for sentinel lymph nodes. Microcalcifications ??present in both carcinoma and non-neoplastic tissue Treatment effect - no known presurgical therapy Additional pathologic findings: Fibrocystic change, focal intraductal hyperplasia without atypia and intraductal papilloma. Ancillary studies: Previously performed on same tumor ([id number] / [id number]). ER: positive, >95% MS: positive, >95% Her2 denzel: negative 1+ ([facility]) ?? PATHOLOGIC STAGE: pT2 N2a Mx ?? ? RADIATION:05/18/16 to 06/30/16 ? ? Previous therapy:femara Began after completed radiation. ? ? Changed to arimidex pt. stopped prematurely d/t fatigue. ? I had a bladder infection in August. And I had cataract surgery. I haven't taken the arimidex in the past 2 months. I've been seeing my family . They told me that I have sugar and he started me on metformin. I've had diarrhea since then. He cut my dose in half. Pt. here today with her daughter. They told my mom that she has diabetes but they have not done any teaching with her. She has an appt. next week for that. I'm sure her blood sugars are high. But we have nothing to check them with. ? Appetite:I don't have much of an appetite.?10# wt. loss since April 2017. Energy level:no energy Denies fevers. Recent UTI in August. Resp:+dry cough, denies sob at rest, spring +asthma Cardiac:denies chest pain/palpitations GI:denies abd pain, denies n/v, +diarrhea every time I try to eat. :denies dysuria/hematuria-recent UTI Extrem:denies pain currently, +arthritis to knees/R shoulder- xray done by PCP-per pt. it showed arthritis Endo:denies hot flashes Neuro:denies symptoms of neuropathy Skin:denies rashes/lesions Heme:denies bleeding The ROS is otherwise negative. Past medical history, appointments, medications, allergies reviewed. No changes. EXAM: BP 143/72 Pulse 83 Temp 37 ?C (98.6 ?F) (Temporal Artery) Wt 86.4 kg (190 lb 8 oz) BMI 31.17 kg/m? APPEARANCE Well appearing, alert, in no acute distress, well-hydrated, well nourished. HEART RRR with normal S1 and S2, no murmurs LUNG clear to auscultation BREAST FEMALE b/l mastectomy scars, no nodule LYMPH NODES No cervical lymphadenopathy, No supraclavicular lymphadenopathy and No axillary lymphadenopathy. ABDOMEN bowel sounds normoactive, no bruits, soft, non-tender, non-distended, without organomegaly or palpable masses EXTREMITIES No edema NEURO Awake, alert and oriented x 3, Normal gait and No involuntary motions. SKIN Skin color, texture, turgor normal, no suspicious rashes or lesions ASSESSMENT/PLAN: 1. Malignant neoplasm of upper-outer quadrant of right breast in female, estrogen receptor positive (HCC) - ICD9: 174.4, V86.0, ICD10: C50.411, Z17.0 (primary diagnosis) 2. Cough in adult - ICD9: 786.2, ICD10: R05 Stage IIIA, ?pT2 N2a Mx, ER: positive, >95%, MS: positive, >95% , Her2 denzel: negative 1+ (I[facility]). 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 Will get a CXR today. - Pt. did not tolerate AI's-stopped arimidex 2 months ago. - Pt. would like to try femara again. Rx done. - Pt. will call and follow up with PCP re:diarrhea, DM teaching. - CXR today. - ?Follow up in 6 months-pending CXR. - ?Pt. aware to call office with any questions/concerns. The patient indicates understanding of these issues and agrees with the plan. Danielle Yang APRN.ADVERTISING DISPATCH CLERK BASIC METABOLIC Collected: 09/18/2017 Status: F Source: BISHNU PROFILE (BMP) 4:15 PM [facility] REPOSITORY Order Comment: Order Date: 09/18/17 Order Info: 0667-1 - BMP TYPE CODE TESTS RESULT OUT OF RANGE REFERENCE UNITS LAB L501.0100 74-106 mg/dL High GLU 233 Result Comment: Glucose result greater than or equal to 200 mg/dL suggests DIABETES MELLITUS per A.D.A. criteria. Please note revised GLUCOSE reference range effective 2017. LAB L501.1000 7-18 mg/dL Normal BUN 14 LAB L501.1100 0.55-1.02 mg/dL Normal CREAT,SERUM 0.93 Result Comment: The validity of the calculated GFR AND GFRAA in patients over 70 years has not been determined. Clinical correlation is essential. LAB L501.1110 >60 mL/min Normal EST GFR 61 Result Comment: Non- GFR Calc LAB L501.1115 >60 mL/min Normal EST GFR - AA 74 Result Comment: GFR Calc LAB L501.1300 10-20 RATIO Normal BUN/CRE 15.0 LAB L501.2200 8.5-10.1 mg/dL CA Normal 9.3 LAB L501.5300 136-145 mmol/L NA Normal 140 LAB L501.5600 3.5-5.1 mmol/L K Normal 3.8 LAB L501.5900 98-107 mmol/L CL Normal 104 LAB L501.6100 21.0-32.0 mmol/L Normal CO2 29.0 LAB L501.6200 5-15 Normal GAP 7 Performed By: #### L500.2500 #### [facility] [address] [place], [address] Observed: 09/17/2017 Status: F Source: BISHNU CULTURE, URINE 12:00 AM [facility] REPOSITORY Urine Culture ORGANISM 1: Presumptive E. coli [place] Count >100,000 ORGANISM 2: GPC Poss Enterococcus sp [place] Count 25,000-50,000 ORGANISM 3: Mixed Gram Positive Organisms [place] Count 50,000-80,000 MIX CULTURE Mixed contaminants. Submit a new specimen if indicated. Performed By: #### M100.0650 #### [facility] [address] [place], [address] URINALYSIS, ROUTINE Collected: 09/06/2017 Status: F Source: BISHNU (DIPSTICK) 4:50 PM [facility] REPOSITORY Order Comment: How was Urine Obtained? CLEAN CATCH TYPE CODE TESTS RESULT OUT OF RANGE REFERENCE UNITS LAB L400.3000 Yellow COLOR Normal Yellow LAB L400.3050 Clear Normal CLARITY Cloudy LAB L400.3200 Normal mg/dl Normal GLUCOSE, UR Normal LAB L400.3300 Negative mg/dL High BILIRUBIN URINE 1 Result Comment: COLOR OF URINE MAY AFFECT DIPSTICK RESULTS. LAB L400.3400 Negative mg/dl High KETONE UR 5 LAB L400.3465 1.002-1.030 Normal SP.GR. DIPSTX 1.025 LAB L400.3550 5.0 - 8.0 pH Normal UR 5.0 LAB L400.3600 Negative mg/dl High PROT DIPSTX 30 LAB L400.3700 Normal mg/dl Normal UROBILI Normal LAB L400.3750 Negative Normal NITRITE UR Negative LAB L400.3780 Negative /ul High OCCULT 10 BLOOD-UR LAB L400.3800 Negative /ul High LEUK ESTERASE 100 Performed By: #### L400.2010 #### [facility] [address] [place], [address] SHOULDER MIN 2 VIEWS Observed: 09/06/2017 Status: F Source: LYMAN 4:11 PM [facility] REPOSITORY [facility] Imaging Services [address] [place] [address] Shoulder min 2 Views MR#: [id number] Acct: [id number] Name: RICO OSPINA Rep #: [id number] : 1935 F 82 From: David Thomas MD PCP: Sacha Kimble MD Status: REG CLI Study: Shoulder min 2 Views Date of Exam: 09/06/17 Exam# [id number] Ordering Dr: Sacha Kimble MD STUDY: X-RAY - RIGHT SHOULDER REASON FOR EXAM: Female, 82 years old. Pain TECHNIQUE: 4 view(s) of the shoulder. COMPARISON: None. FINDINGS: There is moderate degenerative arthrosis of the glenohumeral articulation. There is degenerative arthrosis of the acromioclavicular joint without inferior osseous spur formation. Normal acromion. Normal humeral head and visualized proximal humerus. The soft tissue structures are unremarkable. Normal visualized pulmonary apex. RAD/Shoulder min 2 Views IMPRESSION: Degenerative arthrosis Electronically Signed: Lavell Thomas MD at 9:00 EDT , Service support , CC: Sacha Kimble MD Police Officer Booking: Signed PROGRESS Observed: 05/10/2017 Status: COMPLETED Source: COPPERAS COVE 1:52 PM [facility] REPOSITORY HNO ID: [id number] Author: Danielle Yang Service: (none) Author Type: Nurse Practitioner Type: Progress Notes Filed: 05/11/2017 9:13 AM Note Text: Chief Complaint Patient presents with: Established Patient HPI: Rico Ospina is a 81 year old female who presents here today for breast cancer. Per Dr. Monroy's previous note: H/o abnormal mammogram and a right breast mass. Patient was previously diagnosed with cancer of the left breast 18 years ago. ?? She had a stage IC, ER-positive, MS-positive, HER-2 negative breast cancer. The patient had a modified radical mastectomy followed by observation only. She did not have radiation therapy or endocrine therapy. Since I last saw the patient, her sister was diagnosed with stomach cancer and her mother was diagnosed with ovarian cancer. She had not had a screening mammogram for over 2 years. Patient had a partial hysterectomy and subsequent oophorectomy many years ago. ?? She had complaint of a palpable breast mass for 3 months. The patient notes a mass in the 10 o'clock of her right breast. The patient had a mammogram on January 26, 2016 and ultrasound on February 10, 2016 which demonstrated no mammographic hckhtsxfkyjlw-WN-DAOJ category 2 but an abnormality in the 3+ position 10:00 on ultrasound of the right breast which looked irregular with shadowing. BI-RADS 4. She does perform a self breast exam routinely. She notes no skin changes. She denies nipple discharge. She notes no axillary masses.? ?? She was referred to Dr. Jorge for an ultrasound-guided core breast biopsy in the office. This returned as invasive ductal cancer. Patient underwent a right modified radical mastectomy with sentinel lymph node injection on March 14, 2016. The pathology demonstrated: ?? FROZEN SECTION DIAGNOSIS A. Axillary lymph nodes right, biopsy: One out of four lymph nodes, positive for metastatic carcinoma. ?? SJ:kirsten 03/13/16 ?? MICROSCOPIC DIAGNOSIS A. Right axillary sentinel lymph nodes, biopsy: One out of four lymph nodes, positive for metastatic carcinoma. B. Right breast, radical mastectomy: Invasive poorly differentiated ductal carcinoma. See complete cancer check list below. ?? AM:kirsten 03/15/16 ?? COMMENT INVASIVE BREAST CANCER SUMMARY: ?? Procedure: Radical mastectomy Specimen: Complete breast Specimen integrity: Single intact specimen. Specimen size: 25 x 23 x 4 cm Specimen laterality: Right breast Invasive tumor: Tumor size: 4 x 3 x 2.5 cm Tumor focality: Single focus of invasive tumor Macroscopic and Microscopic extent of tumor: Skin: Free of tumor Nipple: Free of tumor Skeletal muscle: Not present. Histologic type of invasive carcinoma: Invasive ductal carcinoma Histologic Grade: Peterson grade: Glandular/tubular differentiation score: 3 Nuclear pleomorphism score: 3 Mitotic count score: 2 Overall grade ??3 (Total score of 8) Margins: Uninvolved by invasive carcinoma. 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 Estimated size (extent) of DCIS: 5 x 3 x 2 mm Number of blocks with DCIS: 4 of 22 Architectural patterns: Solid, cribriform and comedo Nuclear grade: Grade 3 (high grade) Necrosis: Present, multifocal Lobular carcinoma in situ (LCIS): Not present Lymph nodes: Number of sentinel lymph nodes examined ??4 Total number of lymph nodes examined (sentinel and nonsentinel) ??18 Number of lymph nodes with macrometastases ??2 Number of lymph nodes with micrometastases ??2 Number of lymph nodes with isolated tumor cells ??0 Size of largest metastatic deposit ??12 mm Extranodal extension ??focally present See specimen A for sentinel lymph nodes. Microcalcifications ??present in both carcinoma and non-neoplastic tissue Treatment effect - no known presurgical therapy Additional pathologic findings: Fibrocystic change, focal intraductal hyperplasia without atypia and intraductal papilloma. Ancillary studies: Previously performed on same tumor ([id number] / [id number]). ER: positive, >95% MS: positive, >95% Her2 denzel: negative 1+ ([facility]) ?? PATHOLOGIC STAGE: pT2 N2a Mx ?? ? RADIATION:05/18/16 to 06/30/16 ? ? Current therapy:femara Began after completed radiation. ? I am so tired on this pill. I feel terrible. I stopped it for 3 days and felt better but I started it back up. I never did call and tell you about it. Pt. cancelled/missed OV in Feb. d/t illness. Last seen 10/2016. Pt. has been seen by per PCP and Pulm. Pt. here today with her daughter. ? Appetite:poor d/t nausea, 6# wt. loss over past 5 months. Energy level:poor Denies fevers. Resp:occ. cough and sob with asthma Cardiac:denies chest pain/palpitations, occ. tenderness to scar GI:denies abd pain, +nausea, denies vomiting, +constipation- used fleets yesterday with results :denies dysuria/hematuria Extrem:denies pain currently, +arthritis to knees Endo:I feel hot a couple times per day Neuro:denies symptoms of neuropathy Skin:denies rashes Heme:denies bleeding The ROS is otherwise negative. Past medical history, appointments, medications, allergies reviewed. No changes. EXAM: BP 163/74 Pulse 84 Temp 36.7 ?C (98 ?F) (Temporal Artery) Wt 90.7 kg (200 lb) BMI 32.72 kg/m2 APPEARANCE Well appearing, alert, in no acute distress, well-hydrated, well nourished. HEART RRR with normal S1 and S2, no murmurs LUNG clear to auscultation BREAST FEMALE b/l mastectomy scars, no nodule LYMPH NODES No cervical lymphadenopathy, No supraclavicular lymphadenopathy and No axillary lymphadenopathy. ABDOMEN bowel sounds normoactive, no bruits, soft, non-tender, non-distended, without organomegaly or palpable masses EXTREMITIES No edema NEURO Awake, alert and oriented x 3, uses w/c and No involuntary motions. SKIN Skin color, texture, turgor normal, no suspicious rashes or lesions LABS: Vit D level: Pending ASSESSMENT/PLAN: 1. Malignant neoplasm of upper-outer quadrant of right breast in female, estrogen receptor positive (HCC) - ICD9: 174.4, V86.0, ICD10: C50.411, Z17.0 Stage IIIA, ?pT2 N2a Mx, ER: positive, >95%, MS: positive, >95% , Her2 denzel: negative 1+ ([facility]). 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 No concerning findings on exam. - Not tolerating femara d/t fatigue/nausea. - Pt. will stop femara for one month and call office in one month with an update on her symptoms-if she feels the same fatigue will order scans. - Reviewed SCP with pt. - Follow up in 6 months-pending phone call in one month. - Pt. aware to call office with any questions/concerns. The patient indicates understanding of these issues and agrees with the plan. Danielle Yang CNP CNOVSP Observed: 05/10/2017 Status: COMPLETED Source: [place] COVE 1:30 PM [facility] REPOSITORY Visit (SP) Office ([place]) RICO OSPINA ([id number]) 1935 F Date Time Provider Department 05/10/17 1:30 PM DANIELLE YANG (MELINA) [place] During your visit today, we recorded the following information about you: Temperature Pulse Blood pressure Weight 98 degrees 84/minute 163/74 90.7 kg Danielle Yang CNP 05/11/2017 9:13 AM Signed Chief Complaint Patient presents with: Established Patient HPI: Rico Ospina is a 81 year old female who presents here today for breast cancer. Per Dr. Monroy's previous note: H/o abnormal mammogram and a right breast mass. Patient was previously diagnosed with cancer of the left breast 18 years ago. ?? She had a stage IC, ER-positive, MS-positive, HER-2 negative breast cancer. The patient had a modified radical mastectomy followed by observation only. She did not have radiation therapy or endocrine therapy. Since I last saw the patient, her sister was diagnosed with stomach cancer and her mother was diagnosed with ovarian cancer. She had not had a screening mammogram for over 2 years. Patient had a partial hysterectomy and subsequent oophorectomy many years ago. ?? She had complaint of a palpable breast mass for 3 months. The patient notes a mass in the 10 o'clock of her right breast. The patient had a mammogram on January 26, 2016 and ultrasound on February 10, 2016 which demonstrated no mammographic xpmndabunkxfz-FC-DNGG category 2 but an abnormality in the 3+ position 10:00 on ultrasound of the right breast which looked irregular with shadowing. BI-RADS 4. She does perform a self breast exam routinely. She notes no skin changes. She denies nipple discharge. She notes no axillary masses.? ?? She was referred to Dr. Jorge for an ultrasound-guided core breast biopsy in the office. This returned as invasive ductal cancer. Patient underwent a right modified radical mastectomy with sentinel lymph node injection on March 14, 2016. The pathology demonstrated: ?? FROZEN SECTION DIAGNOSIS A. Axillary lymph nodes right, biopsy: One out of four lymph nodes, positive for metastatic carcinoma. ?? SJ:kirsten 03/13/16 ?? MICROSCOPIC DIAGNOSIS A. Right axillary sentinel lymph nodes, biopsy: One out of four lymph nodes, positive for metastatic carcinoma. B. Right breast, radical mastectomy: Invasive poorly differentiated ductal carcinoma. See complete cancer check list below. ?? AM:kirsten 03/15/16 ?? COMMENT INVASIVE BREAST CANCER SUMMARY: ?? Procedure: Radical mastectomy Specimen: Complete breast Specimen integrity: Single intact specimen. Specimen size: 25 x 23 x 4 cm Specimen laterality: Right breast Invasive tumor: Tumor size: 4 x 3 x 2.5 cm Tumor focality: Single focus of invasive tumor Macroscopic and Microscopic extent of tumor: Skin: Free of tumor Nipple: Free of tumor Skeletal muscle: Not present. Histologic type of invasive carcinoma: Invasive ductal carcinoma Histologic Grade: Peterson grade: Glandular/tubular differentiation score: 3 Nuclear pleomorphism score: 3 Mitotic count score: 2 Overall grade ??3 (Total score of 8) Margins: Uninvolved by invasive carcinoma. 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 Estimated size (extent) of DCIS: 5 x 3 x 2 mm Number of blocks with DCIS: 4 of 22 Architectural patterns: Solid, cribriform and comedo Nuclear grade: Grade 3 (high grade) Necrosis: Present, multifocal Lobular carcinoma in situ (LCIS): Not present Lymph nodes: Number of sentinel lymph nodes examined ??4 Total number of lymph nodes examined (sentinel and nonsentinel) ??18 Number of lymph nodes with macrometastases ??2 Number of lymph nodes with micrometastases ??2 Number of lymph nodes with isolated tumor cells ??0 Size of largest metastatic deposit ??12 mm Extranodal extension ??focally present See specimen A for sentinel lymph nodes. Microcalcifications ??present in both carcinoma and non-neoplastic tissue Treatment effect - no known presurgical therapy Additional pathologic findings: Fibrocystic change, focal intraductal hyperplasia without atypia and intraductal papilloma. Ancillary studies: Previously performed on same tumor ([id number] / [id number]). ER: positive, ANDgt;95% MS: positive, ANDgt;95% Her2 denzel: negative 1+ ([facility]) ?? PATHOLOGIC STAGE: pT2 N2a Mx ?? ? RADIATION:05/18/16 to 06/30/16 ? ? Current therapy:femara Began after completed radiation. ? ANDquot;I am so tired on this pill. I feel terrible. I stopped it for 3 days and felt better but I started it back up. I never did call and tell you about it.ANDquot; Pt. cancelled/missed OV in Feb. d/t illness. Last seen 10/2016. Pt. has been seen by per PCP and Pulm. Pt. here today with her daughter. ? Appetite:poor d/t nausea, 6# wt. loss over past 5 months. Energy level:poor Denies fevers. Resp:occ. cough and sob with asthma Cardiac:denies chest pain/palpitations, occ. tenderness to scar GI:denies abd pain, +nausea, denies vomiting, +constipation- used fleets yesterday with results :denies dysuria/hematuria Extrem:denies pain currently, +arthritis to knees Endo:ANDquot;I feel hot a couple times per dayANDquot; Neuro:denies symptoms of neuropathy Skin:denies rashes Heme:denies bleeding The ROS is otherwise negative. Past medical history, appointments, medications, allergies reviewed. No changes. EXAM: BP 163/74 Pulse 84 Temp 36.7 ?C (98 ?F) (Temporal Artery) Wt 90.7 kg (200 lb) BMI 32.72 kg/m2 APPEARANCE Well appearing, alert, in no acute distress, well- hydrated, well nourished. HEART RRR with normal S1 and S2, no murmurs LUNG clear to auscultation BREAST FEMALE b/l mastectomy scars, no nodule LYMPH NODES No cervical lymphadenopathy, No supraclavicular lymphadenopathy and No axillary lymphadenopathy. ABDOMEN bowel sounds normoactive, no bruits, soft, non-tender, non-distended, without organomegaly or palpable masses EXTREMITIES No edema NEURO Awake, alert and oriented x 3, uses w/c and No involuntary motions. SKIN Skin color, texture, turgor normal, no suspicious rashes or lesions LABS: Vit D level: Pending ASSESSMENT/PLAN: 1. Malignant neoplasm of upper-outer quadrant of right breast in female, estrogen receptor positive (HCC) - ICD9: 174.4, V86.0, ICD10: C50.411, Z17.0 Stage IIIA, ?pT2 N2a Mx, ER: positive, ANDgt;95%, MS: positive, ANDgt;95% , Her2 denzel: negative 1+ (IHC). 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 No concerning findings on exam. - Not tolerating femara d/t fatigue/nausea. - Pt. will stop femara for one month and call office in one month with an update on her symptoms-if she feels the same fatigue will order scans. - Reviewed SCP with pt. - Follow up in 6 months-pending phone call in one month. - Pt. aware to call office with any questions/concerns. The patient indicates understanding of these issues and agrees with the plan. Danielle Yang CNP Referring Provider: DANIELLE YANG ([facility]) [[id number]] Allergies As of Date: 05/10/2017 Noted Allergy Reaction SEASONAL ALLERGIES 04/21/2016 5 - Intolerance Date Reviewed: 05/10/2017 Reviewed by: Danielle ([facility]) Celia - Fully Assessed Reason for Visit: Established Patient [175] Primary Visit Diagnosis:Malignant neoplasm of upper-outer quadrant of right breast in female, estrogen receptor positive (HCC) [C50.411, Z17.0] Follow-up and Disposition History Recorded Prescriptions as of 05/10/2017 Sig: SODIUM CHLORIDE 0.65 % NASAL * Use 1 [place] in the nose as ne* ERGOCALCIFEROL (VITAMIN D2) 5* Take 1 capsule by mouth once * LETROZOLE 2.5 MG TABLET Take 1 tablet by mouth once d* NAPROXEN SODIUM 220 MG CAPSULE Take 1 tablet by mouth twice * OMEGA-3 FATTY ACIDS-VITAMIN E* Take 1 capsule by mouth once * ALBUTEROL SULFATE HFA 90 MCG/* Inhale 2 Puffs as instructed * Medication notes this encounter MOVE FREE [facility] ORAL >> Selvin Yeboah MA 05/10/2017 1:31 PM >> BIANCA SELVIN XIE Pam May 10, 2017 1:31 PM No longer taking. FLUTICASONE-SALMETEROL 230 MCG-21 MCG/ACTUATION HFA AEROSOL INHALER >> Selvin Yeboah MA 05/10/2017 1:31 PM >> BIANCA SELVIN XIE Pam May 10, 2017 1:31 PM No longer using. NEXIUM ORAL >> Selvin Yeboah MA 05/10/2017 1:36 PM >> BIANCA SELVIN XIE Pam May 10, 2017 1:36 PM No longer taking. DIPHENHYDRAMINE 25 MG CAPSULE >> Selvin Yeboah MA 05/10/2017 1:37 PM >> BIANCA MICHAEL XIEI Pam May 10, 2017 1:37 PM No longer taking. FLUTICASONE 50 MCG/ACTUATION NASAL SPRAY,SUSPENSION >> Selvin Yeboah MA 05/10/2017 1:36 PM >> BIANCA SELVIN XIE Pam May 10, 2017 1:36 PM No longer using. Problem List As Of Date 05/10/2017 Noted Resolved MALIGN NEOPL BREAST NOS [C50.919] INVALID FOR* More... GENERAL OSTEOARTHROSIS [M15.9] INVALID FOR* DEPRESSIVE DISORDER NEC [F32.9] INVALID FOR* BONE AND CARTILAGE DIS NOS [M89.9, M94.9] INVALID FOR* More... URGE INCONTINENCE [N39.41] INVALID FOR* CHOLELITHIASIS NOS [K80.20] INVALID FOR*03/20/2005 Moderate persistent asthma [J45.40] INVALID FOR* Chronic rhinitis [J31.0] INVALID FOR* Malignant neoplasm of upper-outer quadrant of r*INVALID FOR* Status post right mastectomy [Z90.11] INVALID FOR* Decreased range of motion of right shoulder [M2*INVALID FOR* History of left breast cancer [Z85.3] INVALID FOR* Family history of breast cancer in first degree*INVALID FOR* Family history of ovarian cancer [Z80.41] INVALID FOR* Multinodular goiter [E04.2] INVALID FOR* Vitamin D deficiency [E55.9] INVALID FOR* Malignant neoplasm of upper-outer quadrant of r*INVALID FOR* Encounter Status:Closed by DANIELLE YANG CNP on 05/11/17 VITAMIN D 25 HYDROXY Collected: 05/10/2017 Status: F Source: [place] 1:25 PM [facility] REPOSITORY TYPE CODE TESTS RESULT OUT OF REFERENCE UNITS RANGE LAB VITD 31.0-80.0 ng/mL Vitamin D 25 32.6 Hydroxy Result Comment: Classification of 25 [place] Vitamin D status: Insufficiency/Moderate Deficiency: < or = 30 ng/mL Sufficiency/Optimal Levels: 31 to 80 ng/mL Toxicity: > 100 ng/mL Test performed by chemiluminescent immunoassay. Performed By: #### VITD #### [facility] [address] [place], [place] [address] CARDIOLOGY VISIT Observed: 02/20/2017 Status: F Source: BISHNU REPORT 2:40 PM [facility] REPOSITORY [facility] [address] [place], [place] [address] OFFICE VISIT Date of Service: 02/20/17 MR#: [id number] Acct: [id number] Name: RICO OSPINA Rep #: [id number] : 1935 Provider: Ethan Velasquez MD Age/Sex: 81/F Location: [facility] [place] Status: Signed HPI 6 M FU: Chief Complaint: Follow-up cardiac care. Details: RICO OSPINA, is a 81 F who presents to the office today for a follow-up visit. She is a lady with a history of hypertension and shortness of breath previously thought to have pulmonary hypertension who was evaluated with an echocardiogram as well as a left heart catheterization in 2014. It demonstrated no obstructive coronary artery disease as well as normal left ventricular end-diastolic pressures. Echocardiogram demonstrated pulmonary artery systolic pressures estimated to be 24 mmHg. As you know she previously had breast carcinoma and received chemotherapy. She has denied any chest pain or shortness of breath with exertion no paroxysmal nocturnal dyspnea or pedal edema. She has been compliant with her medications. Her physical exam today demonstrates clear lung sierra regular rate and rhythm and no pedal edema. Intake Vital Signs02/20/17 Height 5 ft 6 in Intake Visit Reasons: 6 M FU Allergies No Known Allergies Allergy (Verified 02/20/17 14:04) Medications Naproxen Sodium [Aleve] 220 mg PO DAILY 06/18/14 [History Confirmed 02/16/17] Cartilage/Collagen/Bor/Hyalur [Move Free Ultra Tablet] 1 ea PO DAILY 03/01/16 [History Confirmed 02/16/17] letrozole 2.5 mg tablet 2.5 mg PO QDAY 02/02/17 [History Confirmed 02/16/17] omega 7-hne-grj-fish oil 1,000 mg (120 mg-180 mg) capsule See Label Instructions PO QDAY ea 02/02/17 [History Confirmed 02/16/17] albuterol sulfate HFA 90 mcg/actuation aerosol inhaler 2 puff INHALATION Q4H PRN g 02/16/17 [History Confirmed 02/16/17] esomeprazole magnesium 40 mg capsule,delayed release 40 mg PO QDAY cap 02/16/17 [History Confirmed 02/16/17] fluticasone 500 mcg-salmeterol 50 mcg/dose blistr powdr for inhalation 2 inh INHALATION BID ea 02/16/17 [History Confirmed 02/16/17] Ejection fraction %: 60 to 64 PFSH Medical History Hyperlipidemia (Chronic) Left atrial enlargement (Chronic) Dyspnea on exertion (Chronic) Breast cancer, left breast (Chronic) Surgical History History of left heart catheterization (Chronic) H/O left mastectomy (Chronic 1998) H/O right mastectomy (Chronic 03/13/16) Family History Father CAD (coronary artery disease) Hypertension Myocardial infarction Social History Smoking Status: Former smoker ROS Const Const: Negative for fatigue, weakness, difficulty sleeping, frequent falls, headache(s) or excessive sweating Eyes Eyes: Negative for loss of peripheral vision, transient loss of vision, blurry vision or double vision ENT ENT: Negative for headache(s), Positive for dizziness (Occasional dizziness), Negative for Nosebleed/epistaxis, Negative for balance problems Cardio Chest Pain: No Edema: None Muscle aches with walking: None Resp Respiratory: Positive for SOB with activity (SOB with little activity since she changed the inhaler she uses) and SOB at rest; negative for SOB orthopnea\SOB lying down or paroxysmal nocturnal dyspnea GI GI: Negative nausea or heartburn : Negative for hematuria Musc Musc: Positive for muscle weakness and joint pain (Bilateral knee pain); negative for muscle aches/ myalgia or balance problems Skin Skin: Negative non-healing lesions, unusual bruising or rash Neuro Neuro: Negative for weakness, Negative for frequent falls, Negative for blurry vision, Negative for headache(s), Positive for dizziness (Occasional dizziness), Negative for lightheadedness, Negative for orthostatic symptoms, Negative for double vision Gil Hematologic/Lymphatic: Negative for easy bruising Endo Endo: Negative for fatigue, excessive sweating or increased thirst/drinking Psych Psych: Negative for anxiety or depression Allergy Allergy/Immunology: Negative for hives, Negative for rash Cardiology Exam Const Appearance: cooperative, healthy appearing, well developed, well groomed and no acute distress Nutritional Appearance: well nourished and average body habitus Orientation: alert, awake and oriented x3 Head Head: normal to inspection, normocephalic and atraumatic Ears: hearing grossly normal bilaterally and external ears normal Nose: external nose normal, nasal mucous membranes and turbinates normal, nares normal, septum normal, no nasal discharge Face and Sinus: face symmetric Mouth: oral mucosae normal, tongue normal, oropharynx normal and moist mucous membranes Teeth and gingiva: dentition normal Throat: posterior oropharynx normal, tonsils normal and uvula midline Eyes General: appearance normal, both eyes and all related structures Eyelids: eyelids normal Conjunctivae: conjunctivae normal Pupils: PERRL, normal by confrontation and accommodation normal EOM: EOM intact bilaterally Neck Neck: normal visual inspection, trachea midline and no JVD JVD: +5 Carotids: normal carotid upstroke and bounding pulses Chest Chest inspection: normal inspection of the chest, symmetric chest movement and normal respiratory effort Auscultation: Bilateral: Clear to Auscultation Cardio Palpation: normal PMI Rate: regular rate Rhythm: regular rhythm Heart sounds: S1 normal, S2 normal and normal, physiologic split S2; negative rub, gallop or murmur GI GI: normal to inspection, soft, no hepatosplenomegaly and bowel sounds present Neuro General: alert, awake, oriented x3, no focal sensory deficit, gait normal and moves all extremities Skin Skin: no rashes or lesions noted Extremities Pulses: Normal: Right Femoral Pulse, Left Femoral Pulse, Right Dorsalis Pedis Pulse, Left Dorsalis Pedis Pulse, Right Posterior Tibial Pulse, Left Posterior Tibial Pulse, Right Radial Pulse, Left Radial Pulse Lower Extremity Edema: None: Bilateral Musculoskel Musculoskeletal: No joint tenderness Psych Psychological: normal affect Assessment AND Plan 1. Essential hypertension I10; I10; I10 Plan Blood pressure appears to be excellently controlled on the current medical therapy and my recommendation is for us to continue following her on an as- needed basis. At this time with no evidence of coronary artery disease and normal pulmonary pressures my role here is limited. Please however, do not hesitate to contact me if any further issues or need should arise. Plan Detail Follow Up prn 02/20/17 1440 <Electronically signed by Ethan Velasquez MD> Date Ethan Velasquez MD Cosigner Signature: Date (if applicable) CC: Sacha Kimble MD ALLERGIES ALLERGIES DATE TYPE / CODE NAME / CODE REACTION SEVERITY SOURCE 11/21/2017 Drug No Known Unknown [facility]nu Allergy/416 Allergies/D65514 [facility] [id number]([facility] 0388(RXNORM) [facility] ED CT) Repository 04/21/2016 Environ/420 SEASONAL INTOLERANCE [facility] 836577(SN ALLERGIES [facility] ED CT) Repository ENCOUNTERS ENCOUNTERS ADMIT/DISCHARGE ACCOUNT ADMITTING ENCOUNTER LOCATION SOURCE NUMBER CLASS 01/22/2018 [id number] Ambulatory [facility] ing:MTLAB Repository 01/16/2018/01/17/20 [id number] Ambulatory BMSBuilding:B [facility] [place]ository 01/11/2018 [id number] Ambulatory BMSBuilding:W [facility] Repository 01/10/2018 [id number] Ambulatory [facility] ing:PSN Repository 12/05/2017 [id number] Ambulatory [facility] ing:CT Repository 11/21/2017/11/22/19 [id number] Ambulatory BMSBuilding:B [facility] Hospital Repository 11/13/2017 [id number] Ambulatory [facility] ing:MFPLAB Repository 11/06/2017/11/07/19 [id number] Ambulatory [address] Repository 11/06/2017/11/09/19 [id number] Ambulatory [address] Repository 10/03/2017 [id number] Ambulatory [facility] ing:PT Repository 09/18/2017 [id number] Ambulatory [facility] ing:MFPLAB Repository 09/17/2017 [id number] Ambulatory [facility] ing:LABSPEC Repository 09/06/2017 [id number] Ambulatory [facility] ing:LABSPEC Repository 09/06/2017 [id number] Ambulatory [facility] ing:MTRAD Repository 05/10/2017/05/11/19 [id number] Ambulatory [address] Repository 05/10/2017/05/12/19 [id number] Ambulatory [address] Repository 02/20/2017/02/21/20 [id number] Ambulatory BMSBuilding:B [place] [address] [facility] Repository PAYERS PAYERS ENCOUNTER GUARANTOR PAYER SUBSCRIBER SOURCE 01/22/2018 RICO [id number] Primary Insurance:[facility] [place] GRANDA: [id number] Number: [facility] [address]Lhj: [phone] [id number] Repository [phone] () Date:8038-04-[place] [id number]: 01/22/2018 Secondary NOT GIVENUNK [place] Insurance:SELF PAY [facility] Number: Effective Repository Date:2018-01-22 01/16/2018 RICO [id number] Primary Insurance:[facility] [place] GRANDA: [place] [id number], [place] Number: Hospital [id number]: [phone] [id number] Repository [phone] (HP) Date:8562-00-30IP [address] [place] [address]CF: 01/16/2018 Secondary NOT GIVENUNK [place] Insurance:SELF PAY Community INSURANCEPolicy Hospital Number: Effective Repository Date:2017-12-12 01/11/2018 RICO [id number] Primary Insurance:MMO R[place] Price BOLEYDOB: [place] [id number], [place] Number: Hospital [id number]: [phone] [id number] Repository [phone] (HP) Date:4728-12-67FS [address] [place] [address]SM: 01/11/2018 Secondary NOT GIVENUNK [place] Insurance:SELF PAY [facility] Number[facility] Effective Repository Date:2018-01-11 01/10/2018 RICO Price [id number] Primary Insurance:MMO RICO RICHEYEYDOB: [place] [id number], [place] Number: Hospital [address]Gfd: [phone] [id number] Repository [phone] () Date:7086-51-34SJ [address] [address]VC: 01/10/2018 Secondary NOT GIVENUNK [place] Insurance:SELF PAY [facility] Effective Repository Date:2017-12-18 12/05/2017 RICO Price [id number] Primary Insurance:MMO R[place] RICHEYEYDOB: [place] [id number], [place] Number: Hospital [id number]: [phone] [id number] Repository [phone] () Date:2064-14-35OV [address] [place] [phone]: 12/05/2017 Secondary NOT GIVENUNK [place] Insurance:SELF PAY [facility] Number: Effective Repository Date:2017-11-26 11/21/2017 RICO Price [id number] Primary Insurance:MMO RICO RICHEYEYDOB: Bish[place] [id number], [place] Number: Hospital [id number]: [phone] [id number] Repository [phone] (HP) Date:5221-55-95SL [address] [address]TO: 11/21/2017 Secondary NOT GIVENUNK [place] Insurance:SELF PAY [facility] Number[facility] Effective Repository Date:2017-11-20 11/13/2017 RICO [id number] Primary Insurance:MMO RICO OSPINADOB: [place] [id number], [place] Number: Hospital [id number]: [phone] [id number] Repository [phone] (HP) Date:5679-86-98EH [address] [address]NK: 11/13/2017 Secondary NOT GIVENUNK [place] Insurance:SELF PAY [facility] Number: Effective Repository Date:2017-11-13 10/03/2017 RICO [id number] Primary Insurance:MMO RICO OSPINADOB: Bishnu [place] MED[place]ARE[place] [id number], [place] Number: Hospital [address]Ojn: [phone] [id number] Repository [phone] () Date:4361-04-97ZN [address] [address]TB: 10/03/2017 Secondary NOT GIVENUNK [place] Insurance:SELF PAY [facility] Number: Effective Repository Date:2017-09-28 09/18/2017 RICO [id number] Primary Insurance:MMO RICO OSPINADOB: Bish[place] [id number], [place] Number: Hospital [id number]: [phone] [id number] Repository [phone] () Date:1644-78-41ZE [address] [address]WZ: 09/18/2017 Secondary NOT GIVENUNK [place] Insurance:SELF PAY [facility] Number: Effective Repository Date:2017-09-18 09/17/2017 RICO [id number] Primary Insurance:MMO R[place] Price BOLEYDOB: [place] [id number], [place] Number: Hospital [id number]: [phone] [id number] Repository [phone] (HP) Date:5480-04-63UC [address] [address]NG: 09/17/2017 Secondary NOT GIVENUNK [place] Insurance:SELF PAY [facility] Number: Effective Repository Date:2017-09-17 09/06/2017 RICO [id number] Primary Insurance:MMO RICO Price BOLEYDOB: [place] [facility] [facility] [id number], [place] Number: Hospital [id number]: [phone] [id number] Repository [phone] (HP) Date:3732-03-56TW [address] [address]JW: 09/06/2017 Secondary NOT GIVENUNK [place] Insurance:SELF PAY [facility] Number: Effective Repository Date:2017-09-06 09/06/2017 RICO Price [id number] Primary Insurance:MMO RICO RICHEYEYDOB: [place] [facility] [facility] [id number], [place] Number: Hospital [id number]: 330 [id number] Repository [phone] (HP) Date:7747-10-35LI [address] [place] [address]EQ: 09/06/2017 Secondary NOT GIVENUNK [place] Insurance:SELF PAY [facility] Number: Effective Repository Date:2017-09-06 02/20/2017 RICO Price [id number] Primary RICO OSPINADOB: [place] Insurance:MEDICARE [id number], [place] PART A [facility] [address]Atm: (330) Number: Repository [phone] [id number] Date:2017-01-27 02/20/2017 Secondary RICO Albert KAIDENHANGYFN: [place] Insurance:RIVERO [id number] [facility] Number: [facility] [id number] Repository Date: [place], [place] [address]MC: 02/20/2017 Tertiary NOT GIVENUNK [place] Insurance:SELF PAY [facility] Number: Effective Repository Date:2017-01-27
== END ==
PROVIDERS: Family Provider Family Medicine; PCP Family Medicine; Referring Provider Family Medicine; Visit Provider Family Medicine
DX: E11.9 Type 2 diabetes mellitus without complications (principal)
CPT/HCPCS: 36415; 80048; 80061; 80076

== ENCOUNTER → 2018-07-15 17:48 | Outpatient (CLI) | payer MEDICARE, SELFPAY ==
[2018-01-16 13:11] VITALS: BMI 29.5
== END ==
PROVIDERS: Family Provider Family Medicine; PCP Family Medicine; Referring Provider Family Medicine; Visit Provider Family Medicine
DX: R30.0 Dysuria (principal)
CPT/HCPCS: 87077; 87086; 87088; 87186

== ENCOUNTER → 2018-07-24 10:32 | Outpatient (CLI) | payer MEDICARE, SELFPAY ==
[2018-01-16 13:11] VITALS: BMI 29.5
[2018-07-24 13:13] LABS: Hemoglobin A1c 6.5 % (4.2-6.3)
[2018-07-24 13:34] LABS: Anion Gap 9 (5-15); BUN 16 mg/dL (7-18); BUN/Creat Ratio 21.6 RATIO (10-20); Calcium,Total 9.2 mg/dL (8.5-10.1); Chloride 105 mmol/L (98-107); Cholesterol 168 mg/dL (200); Creatinine, Serum 0.74 mg/dL (0.55-1.02); EST Glomerular Filtration Rate 80 mL/min (>60); Est Glom Filt Rate - Afr Amer 97 mL/min (>60); Glucose 142 mg/dL (74-106); High Density Lipoprotein 66 mg/dL; Potassium 4.4 mmol/L (3.5-5.1); Sodium Level 140 mmol/L (136-145); Triglycerides 134 mg/dL; Very Low Density Lipoprotein 27 mg/dL (5-40)
== END ==
PROVIDERS: Family Provider Family Medicine; PCP Family Medicine; Referring Provider Family Medicine; Visit Provider Family Medicine
DX: E11.9 Type 2 diabetes mellitus without complications (principal)
CPT/HCPCS: 36415; 80048; 80061; 83036

== ENCOUNTER → 2018-08-14 | Outpatient (CLI) | payer MEDICARE, SELFPAY ==
[2018-01-16 13:11] VITALS: BMI 29.5
--- NOTE | 2018-08-14 16:12 | CT_ITS ---
HISTORY: Lung nodule follow up, SOB. Hx COPD, emphysema, bilateral breast cancer with radiation Tamp; bilateral mastectomy TECHNIQUE: Helically acquired images were obtained of the chest. A radiation dose optimization technique was used for this scan. IV Contrast dosage and agent: None. COMPARISON: CT scan the chest dated December 05, 2017 FINDINGS: # of images incl. paperwork: [id number] LUNGS AND LARGE AIRWAYS: Within the right lung apex, the benign calcified 7 mm pulmonary nodule is again demonstrated. Pulmonary emphysema persists. Increased groundglass opacity. Pleural parenchymal scarring within the right lung apex is similar. PLEURA: No pleural effusion. BONES: Osteopenia. Mild kyphosis. Bilateral shoulder arthritis. HEART AND PERICARDIUM: Heart size is normal. There is no pericardial effusion. VESSELS: Elongation of the thoracic aorta with atherosclerotic plaque, but without aneurysm MEDIASTINUM AND RYAN: Benign calcified right hilar granulomatous disease. No hilar adenopathy SOFT TISSUES: Included thyroid gland is unremarkable. There is no axillary, supraclavicular or lower cervical adenopathy. UPPER ABDOMEN: Hypodense 17 mm right adrenal nodule has a central density of 15 Hounsfield units. It has not significantly increased since December 05, 2017. Additional comparison is made to February 11, 2014. The right adrenal nodule was present at that time and has not significantly increased. The benign calcified pulmonary nodule within the right upper lobe is also unchanged since February 09, 2014. CT/Chest without Contrast IMPRESSION: Benign calcified 7 mm right upper lobe pulmonary nodule has not changed since February 11, 2014. Right adrenal nodule remains stable as well, and statistically represents a benign adenoma. Pulmonary emphysema. Individualized dose optimization techniques were used for this CT. at 0314 Reported and signed by: Jose Ireland MD Electronically Signed: Jose Ireland MD at 3:13 EDT Tel , Service support ,
== END | disposition home or self-care (01) ==
LOC: CT 16:10
PROVIDERS: Family Provider Family Medicine; PCP Family Medicine; Referring Provider Nurse Practitioner Acute Care; Visit Provider Nurse Practitioner Acute Care
DX: R91.1 Solitary pulmonary nodule (principal)
CPT/HCPCS: 71250

== ENCOUNTER 2018-08-16 14:41 | Outpatient (RCR) | payer MEDICARE, SELFPAY ==
[2018-01-16 13:11] VITALS: BMI 29.5
--- NOTE | 2018-08-19 12:01 | HP.PTEVAL_ITS ---
Patient's Visit Information RICO OSPINA is a 83 year old F referred to Physical Therapy by Sacha Fall MD with a diagnosis of REDUCED MOBILITY AND KARINA KNEE PAIN.. Date of Evaluation: 08/16/18 Physical Therapist: Pauline Alvarez PT, Cert MDT - Visit Plan Frequency: 1 VISIT Duration: 1 VISIT Plan: D/C. PATIENT REFUSING PT OTHER THAN TODAY'S ASSESSMENT. - Subjective Findings: Work/Leisure: RETIRED. Disability: NO. Present symptoms: KARINA KNEE PAIN RIGHT > LEFT. ALL OVER STIFFNESS FROM ARTHRITIS. Present since: COUPLE YEARS. Pain Scale: WORST 9/10, LEAST 4/10. Currently: 5/10. Commenced as a result of: ARTHRITIS. Symptoms at onset: RIGHT KNEE. Worse: STANDING, WALKING. Better: ALEVE, SITTING, LYING DOWN. Disturbed sleep: YES. Previous history/Previous treatment: RIGHT KNEE CORTISONE ABOUT 2 YEARS AGO AND IT HELPED. NO KNEE SURGERIES. NO PHYSICAL THERAPY FOR KNEE PAIN. Gait: PATIENT REPORTS SHE CAN ONLY WALK SHORT DISTANCES AND SHE HAS TO HOLD ON TO SOMETHING TO WALK. SHE ESTIMATES SHE CAN WALK ABOUT 15 FEET AT A TIME. GOES DOWN TWO STEPS BACKWARDS TO GET IN AND OUT OF THE HOUSE AND TO AND FROM CAR. HAS A FOUR WHEELED WALKER WITH A SEAT ON IT THAT SHE USES IN THE HOUSE. PATIENT REPORTS HER RIGHT KNEE GOES OUT ON HER AND AT TIMES IT IS REALLY PAINFUL AND AT THOSE TIMES SHE CAN'T PUT WEIGHT ON IT. Accidents: NO. Unexplained weight loss: ABOUT 6 MONTHS AGO LOST ABOUT 20 LBS FOR NO APPARENT REASON. DR. FALL IS AWARE. Imaging: KARINA KNEE X-RAY ABOUT 2 YEARS AGO. THE LEFT X-RAY SHOWS THE FOLLOWING WITH SIMILAR FINDINGS ON RIGHT: There is severe degenerative. arthrosis of the lateral femorotibial compartment with severe joint space. narrowing. There is mild degenerative arthrosis of the patellofemoral. articulation. PMH: NIDDM, ASTHMA, EMPHAZEMA, BREAT CANCER X 2 - MASECTOMY LEFT ABOUT 20 YEARS AGO. FEB 2017 CANCER RETURNED IN RIGHT AND HAD MASECTOMY. RADIATION BOTH TIMES AND CHEMO WITH LEFT BREAST CANCER. NODULES ON LEFT LUNG NOW FROM RADIATION. RIGHT SHOULDER ARTHRITIS WITH X-RAY ABOUT ONE YEAR AGO. Recent major surgery: NO. KNEE REPLACEMENTS RECOMMENDED AND PATIENT REPORTS SHE DECLINED. PLOF (Prior Level of Function): JUST STARTED USING THE WHEELCHAIR ABOUT 2 MONTHS AGO. DAUGHTER IS PRESENT AND REPORTS SHE BOUGHT A WHEELCHAIR TO HELP HER MOM WHEN THEY TAKE HER SOMEWHERE. LIVING ARRANGEMENTS: PATIENT LIVES ALONE WITH SON AND DAUGHTER NEIGHBORS. ONE STORY HOME. 2 STEPS IN AND OUT OF HOME WITH ONE HANDRAIL. SHOWERING: SHOWERS INDEP'LY HANGING ON TO THE FACETS. FALLS: NO FALLS. NEAR FALLS. OTHER: PATIENT REPORTS SHE ONLY GOES OUT TO GO TO THE [facility]OCERY STORE AND TO DR. WILLIAM. HER DAUGHTER BRINGS THE SCOOTER TO THE CAR FROM THE GROCERY STORE FOR HER TO SHOP. SHE REPORTS SHE DID GET IN HER CAR AND DRIVE TO THE PHARMACY ALONE ABOUT 3 WEEKS AGO TO [facility] HER PRESCRIPTIONS AT THE DRIVE UP WINDOW. PATIENT REFUSES PHYSICAL THERAPY. STATES SHE WANTS A SCOOTER TO BE ABLE TO GET HER WORK DONE AROUND HER HOUSE AND HAVE A LITTLE BIT OF A LIFE. PATIENT REPORTS IT IS DIFFICULT TO GET AROUND THE HOUSE DUE TO HER BREATHING PROBLEMS BUT MOSTLY BECAUSE OF HER KNEE PAIN. - Objective THIS PATIENT IS BROUGHT BACK TO PHYSICAL THERAPY IN HER OWN NON MOTORIZED W/C BY HER DAUGHTER. IT IS NOT A SELF PROPELLING W/C. KARINA LE LIGHT TOUCH SENSATION IS INTACT AND SYMMETRICAL. KARINA KNEES HAVE MILD SWELLING AND ARE TENDER TO THE TOUCH RIGHT > LEFT. SHE HAS FULL KARINA KNEE EXT AND FLEX TO APPROX 90 DEG. STRENGTH WITH MMT'ING: RIGHT HIP 4-/5, KNEE EXT 3+/5, KNEE FLEX 4-/5, ANKLE 4/5. LEFT HIP 4/5, KNEE EXT 4-/5, KNEE FLEX 4/5, ANKLE 5/5. PATIENT C/O RIGHT KNEE PAIN WITH RIGHT KNEE MMT'ING. PATIENT IS ABLE TO INDEP'LY TRANSFER FROM SIT TO STAND FROM W/C TO FRONT WHEELED WALKER BUT IT IS VERY DIFFICULT AND SHE IS VERY DEPENDENT ON HER LLE AND KARINA UE'S TO DO SO. SHE IS ABLE TO AMBULATE INDEP'LY X AT LEAST 10 FEET TODAY IN THE CLINIC WITH SUPERVISION. SHE BECOMES VERY FATIGUED AND SOB AT APPROX 10 FEET AND REQUESTS TO SIT DOWN. SHE IS ABLE TO INDEP'LY ADVANCE HER LE'S AND THE WALKER BUT FATIGUES QUICKLY. BALANCE: STATIC SITTING - GOOD, DYNAMIC SITTING - GOOD, STATIC STANDING - FAIR MINUS, DYNAMIC STANDING - FAIR MINUS. OTHER: THIS PATIENT WOULD BE A GOOD CANDIDATE FOR A SCOOTER TO EASE ADL'S AND HELP HER REMAIN INDEP IN HER HOME. - Goals Goal 1:: SUCCESSFUL COMPLETION OF PHYSICAL THERAPY EVALUATION Goal Time Frame: 1 VISIT - Anticipated Interventions Thank you for the opportunity to evaluate your patient. For Medicare and Medicare HMO plans, please review the plan of care and approve it. It will need to be FAXED BACK to us at [phone] for Medicare purposes. For Medicare only, by signing this I certify the plan of care. Please let me know if there are questions or concerns regarding this plan of care. Physician Signature: Date:
--- NOTE | 2018-10-29 14:24 | HP.PT.NRP ---
HP - Discharge Summary (1) - Patient Information RICO OSPINA was seen in my office for initial evaluation on 08/16/18. The following Plan of Care was established for this patient: Initial Frequency: 1 VISIT Initial Duration: 1 VISIT This patient was last seen in our office 08/16/18. Pertinent comments regarding their Physical therapy will appear below: This patient has not returned to Physical Therapy and is appropriate to return to MD for further follow-up as needed. At this point I will be discontinuing this patient from physical therapy. I would be happy to see this patient again in the future if found appropriate by the physician. Thank you! Pauline Alvarez, PT, Cert MDT
== END 2018-08-16 19:00 | disposition home or self-care (01) ==
LOC: PT 14:41
PROVIDERS: Family Provider Family Medicine; PCP Family Medicine; Referring Provider Family Medicine; Visit Provider Family Medicine
DX: M25.561 Pain in right knee (principal); M25.562 Pain in left knee; Z74.09 Other reduced mobility
CPT/HCPCS: 97162

== ENCOUNTER → 2019-04-14 17:22 | Outpatient (CLI) | payer MEDICARE, SELFPAY ==
[2019-02-12 13:27] VITALS: BMI 29.5
== END ==
PROVIDERS: PCP Family Medicine; Referring Provider Family Medicine; Visit Provider Family Medicine
DX: R30.0 Dysuria (principal)
CPT/HCPCS: 87086; 87088; 87186

== ENCOUNTER → 2021-01-07 17:36 | Outpatient (CLI) | payer MEDICARE, SELFPAY | PROVIDERS: PCP Family Medicine; Visit Provider Registered Nurse | DX: N30.00 Acute cystitis without hematuria (principal) | CPT/HCPCS: 87077; 87086; 87088; 87186 ==

== ENCOUNTER 2021-08-11 23:03 | Inpatient (IN) | payer MEDICARE, SELFPAY ==
[2021-08-11 23:04] VITALS: BP 103/74; PULSE 95; RESP 18; TEMP 36.6; BMI 21.9
[2021-08-11 23:06] VITALS: BP 103/74; PULSE 95; RESP 18; TEMP 36.6
--- NOTE | 2021-08-11 23:28 | EKG12_ITS ---
Test Reason : DYSRHYTHMIA Blood Pressure : / mmHG Vent. Rate : 089 BPM Atrial Rate : 089 BPM P-R Int : 202 ms QRS Dur : 090 ms QT Int : 372 ms P-R-T Axes : 019 047 071 degrees QTc Int : 452 ms Normal sinus rhythm Septal AK, age undetermined, cannot be excluded Confirmed by ANTONIO COY, KATI ([id number]), food editor CORRINE NICHOLS ([id number]) on 08/12/2021 9:04:52 AM Referred By: LILI Confirmed By:KATI ALVAREZ MD
[2021-08-11] MEDS: 0.9% Normal Saline 1,000 ML 150 ML IV (23:52)
--- NOTE | 2021-08-11 23:55 | EX.ED.DYSGE1 ---
HPI History of Present Illness Chief Complaint: Complaint Informant: patient and family Onset/Context/Timing Onset: Days (3-4) Context: Gradual Onset Timing: Continuous Quality: weak Location: all over Current Severity: Severe Maximum Severity: Severe Worsened by: nothing in particular Relieved by: nothing Associated Symptoms Associated Symptoms: urinary frequency & urgency Narrative Narrative: Patient has been getting gradually weak to the point now where she cannot get up by herself and needs family to help. They live locally, but she lives by herself. She has been prone to urinary tract infections and I thought she was getting once and she is having urinary symptoms for the last several days as well, but she refused to come to the hospital until finally tonight they forced her because she is getting more ill. They state that for the last 3 to 4 days also they have checked her blood pressure and at times it has been as high as 220/120. Now, it is not and it is actually on the low side. Patient denies any chest pain shortness of breath headache or confusion, she did not bring her hearing aids and she has some trouble hearing they agree she is not confused she is just really weak. She denies any falls or injuries. [facility] Medical History (Updated 08/12/21 @ 00:[address] Kolton Bonilla MD) Breast cancer, left breast Diabetes mellitus Dyspnea on exertion Hyperlipidemia Left atrial enlargement Home Medications cartilage 40 mg-collagen II-boron 5 mg-hyaluronate sod 3.3 mg tablet 1 ea PO DAILY 03/01/16 [History Last Taken Unknown] omega 3-rfo-ocv-fish oil 1,000 mg (120 mg-180 mg) capsule (Fish Oil) See Rx Instructions PO QDAY 02/02/17 [History Last Taken Unknown] metformin 500 mg tablet 1,000 mg PO BID 11/21/17 [History Last Taken Unknown] albuterol sulfate 90 mcg/actuation aerosol inhaler 2 puff inhalation Q4H PRN Asthma #18 grams 11/18/20 [Rx Last Taken Unknown] letrozole 2.5 mg tablet 2.5 mg PO DAILY 11/18/20 [History Last Taken Unknown] fluticasone propionate 50 mcg/actuation nasal spray,suspension (Flonase Allergy Relief) 1 spray intranasal DAILY 05/18/21 [History Last Taken Unknown] tiotropium 2.5 mcg-olodaterol 2.5 mcg/actuation mist for inhalation (Stiolto Respimat) 2 puff inhalation DAILY #3 ea 05/18/21 [Rx Last Taken Unknown] Allergy/AdvReac Type Severity Reaction Status Date / Time No Known Allergies Allergy Verified 05/18/21 13:51 Family History (Reviewed 05/18/21 @ 14:00 by Nakita Arzola LOADING UNIT OPERATOR SEATING, LOADING UNIT OPERATOR SEATING-C) Father CAD (coronary artery disease) Hypertension Myocardial infarction Surgical History H/O left mastectomy (~1998) H/O right mastectomy (~03/13/16) History of left heart catheterization Social History Smoking Status: Never smoker ROS ROS ED Constitutional Constitutional ED: Reports malaise and weakness; Denies chills or fever(s) Eyes Eyes: Denies change in vision or diplopia ENT ENT ED: Denies rhinorrhea or sore throat Cardiovascular Cardiovascular: Denies chest pain or palpitations Respiratory/Chest Respiratory/Chest: Denies cough or dyspnea Gastrointestinal Gastrointestinal: Denies abdominal pain, diarrhea, nausea or vomiting Genitourinary Genitourinary ED: Reports urinary frequency and urinary urgency; Denies dysuria or hematuria Musculoskeletal Musculoskeletal: Denies back pain or neck pain Integumentary Denies abscess or rash Neurologic Neurologic: Denies headache(s), paresthesias or weakness Psychiatric Psychiatric: Denies anxiety or suicidal thoughts EXAM Physical Exam Const Vital Signs: 08/11/21 23:04 08/11/21 23:06 08/11/21 23:55 Temperature 97.9 F 97.9 F Temperature Source Temporal Temporal Pulse Rate 95 95 Respiratory Rate 18 18 Respiratory Effort Normal Non-Labored Blood Pressure 103/74 103/74 Blood Pressure Mean 83 83 Pulse Ox Oxygen Delivery Method 08/12/21 00:06 Temperature Temperature Source Pulse Rate 96 Respiratory Rate 20 H Respiratory Effort Blood Pressure 142/94 H Blood Pressure Mean 110 Pulse Ox 98 Oxygen Delivery Method Room Air Positive well nourished and well developed Constitutional Narrative: Ill-appearing but in no distress General Appearance ED: well developed and NAD HEENT Reports moist mucous membranes normocephalic and atraumatic Eyes PERRL and EOMs intact bilaterally Neck full ROM and supple Resp normal respiratory effort and clear to auscultation bilaterally Cardio regular rate, regular rhythm and no murmurs Rate: Negative for tachycardic GI non-distended GI Narrative: Mild suprapubic tenderness no guarding or rebound, otherwise benign abdomen Auscultation: normoactive bowel sounds Palpation: soft Back/Spine no CVA tenderness General Back: other FROM Extremity normal to inspection General Extremety ED: Negative for edema, pulses abnormal or tenderness General Extremity: Negative for edema or pulses abnormal Neuro oriented x3, CN's II-XII intact bilaterally and no sensory deficits noted Neuro Narrative: Generally weak, able to sit up with assistance and holding the rails Sensorium / Orientation: awake and alert Motor Exam: general weakness Skin no rashes or lesions noted and no wounds MDM MDM MDM Narrative Medical decision making narrative: Esquivel catheter was placed at the patient was in agreement with rather than trying to use a bedpan as she is very weak. Her blood pressure is remained stable here, initially 103/74, on recheck after some gentle IV fluids 142/94, still not in a range where she needs acute treatment being slightly elevated. Her troponin is slightly elevated at 312, her EKG is normal except for some peaked T waves. She has low potassium, not high, and is prerenal but her creatinine is normal. She has a mild leukocytosis without an elevated lactic acid. I did a CT of her head, shows no acute abnormalities. 1 view chest x-ray my interpretation shows no acute abnormalities. Plan is for admission. She will be given aspirin, no evidence of an acute AR on her EKG. Lab Data Attestation: I reviewed the patient's lab results. Labs: Laboratory Results - last 24 hr 08/11/21 08/11/21 08/11/21 23:50 23:50 23:50 WBC 12.3 H RBC 4.41 Hgb 13.4 Hct 38.1 MCV 86.4 MCH 30.4 MCHC 35.2 RDW Std Deviation 39.5 RDW Coeff of Gil 12.5 Plt Count 287 MPV 10.6 Immature Gran % (Auto) 0.400 Neut % (Auto) 81.0 H Lymph % (Auto) 8.[address] % (Auto) 10.4 H Eos % (Auto) 0.1 Baso % (Auto) 0.1 Absolute Neuts (auto) 10.0 H Absolute Lymphs (auto) 0.99 Nucleated RBC % 0 Sodium 134 L Potassium 3.2 L Chloride 100 Carbon Dioxide 27.0 Anion Gap 7 BUN 29 H Creatinine 0.76 Estim Creat Clear Calc 40.72 Est GFR (MDRD) Af Amer 94 Est GFR (MDRD) Non-Af 78 BUN/Creatinine Ratio 38.4 H Glucose 176 H Lactic Acid 1.1 Calcium 9.0 Total Bilirubin 0.80 AST 14 L ALT 18 Alkaline Phosphatase 60 Troponin I High Sens 312 H* Total Protein 6.5 Albumin 3.3 Globulin 3.2 Albumin/Globulin Ratio 1.0 Urine Color Urine Clarity Urine pH Ur Specific [place] Urine Protein Urine Glucose (UA) Urine Ketones Urine Occult Blood Urine Nitrite Urine Bilirubin Urine Urobilinogen Ur Leukocyte Esterase Urine RBC Urine WBC Ur Squamous Epith Cells Urine Bacteria Urine Mucus 08/12/21 00:00 WBC RBC Hgb Hct MCV MCH MCHC RDW Std Deviation RDW Coeff of Gil Plt Count MPV Immature Gran % (Auto) Neut % (Auto) Lymph % (Auto) [place] % (Auto) Eos % (Auto) Baso % (Auto) Absolute Neuts (auto) Absolute Lymphs (auto) Nucleated RBC % Sodium Potassium Chloride Carbon Dioxide Anion Gap BUN Creatinine Estim Creat Clear Calc Est GFR (MDRD) Af Amer Est GFR (MDRD) Non-Af BUN/Creatinine Ratio Glucose Lactic Acid Calcium Total Bilirubin AST ALT Alkaline Phosphatase Troponin I High Sens Total Protein Albumin Globulin Albumin/Globulin Ratio Urine Color Yellow Urine Clarity Cloudy Urine pH 6.0 Ur Specific [place] 1.020 Urine Protein 100 H Urine Glucose (UA) Normal Urine Ketones 15 H Urine Occult Blood 50 H Urine Nitrite Positive H Urine Bilirubin Negative Urine Urobilinogen Normal Ur Leukocyte Esterase 500 H Urine RBC 0-5 SEEN Urine WBC >100 SEEN Ur Squamous Epith Cells 0-5 SEEN Urine Bacteria 4+ Urine Mucus 0 SEEN Radiography Chest X-Ray - ED: 1 View, Read by ED Physician, No Acute Disease and No Infiltrates Rhythm Strip Rhythm Strip: Sinus Rhythm Rate: 95 Ectopy: None EKG Initial EKG: Attestation: I personally reviewed and interpreted this EKG as follows: Interpretation: Sinus Rhythm and No Acute Injury Pattern Comments: No ST elevation or depressions. Peaked precordial T waves. Prior EKG tracings: available for review Prior: Changed (T waves are peaked now, but comparison is from 2014) Discharge Plan Triage Chief Complaint: Complaint ED Provider: Kolton Bonilla Dx/Rx/DC Orders Clinical Impression: Urinary tract infection, Acute dehydration, Elevated troponin, Generalized weakness, Acute hypokalemia Prescriptions: No Action metformin 500 mg tablet 1,000 mg PO BID letrozole 2.5 mg tablet 2.5 mg PO DAILY albuterol sulfate 90 mcg/actuation HFA aerosol inhaler 2 puff INHALATION Q4H PRN (Reason: Asthma) Qty: 18 6RF fluticasone propionate [Flonase Allergy Relief] 50 mcg/actuation spray,suspension 1 spray intranasal DAILY Rx Instructions: administer into each nostril Stiolto Respimat 2.5-2.5 mcg/actuation mist 2 puff INHALATION DAILY Qty: 3 3RF apybqtvqo-anxabaxl-gwf-hyalur 1 EACH tablet 1 ea PO DAILY omega 9-yfg-lzz-fish oil [Fish Oil] 1,000 mg (120 mg-180 mg) capsule See Rx Instructions PO QDAY Label Comments: 500mg PO QDAY Rx Instructions: 500mg PO QDAY Primary Care Provider: Sacha Kimble Referrals: Sacha Kimble MD [Primary Care Provider] - Disposition Disposition: Acute Care Hospital [facility]
[2021-08-12] VITALS (14 sets, daily range): BP systolic 119–153; BP diastolic 60–94; PULSE 74–96; RESP 16–20; TEMP 36.2–36.9; O2SAT 97–99; BMI 22.8
--- NOTE | 2021-08-12 | RAD_ITS ---
STUDY: X-RAY CHEST REASON FOR EXAM: Female, 86 years old. weakness TECHNIQUE: Single AP portable view of the chest. COMPARISON: None. FINDINGS: There is a calcified arm in the right upper lobe measures 5 mm. There is no demonstrated pleural abnormality. Normal size heart. Normal mediastinum and rashid. Normal visualized pulmonary arteries. Normal visualized aortic arch and descending thoracic aorta. Normal visualized thoracic spine. There is degenerative osteoarthritis of the bilateral shoulders. There is no demonstrated abnormality of the visualized soft tissue structures of the upper abdomen. RAD/Chest 1 View (Portable) IMPRESSION: Degenerative changes, as described above. No demonstrated acute cardiopulmonary process. Electronically Signed: Iban Guajardo MD at 1:10 EDT ,
[2021-08-12 00:01] LABS: Absolute Lymphocyte Count 0.99 X10^3/uL (0.83-4.51); Basophil# 0.01 X10^3/uL; Basophil% 0.1 % (0-1); Eosinophil# 0.01 X10^3/uL; Eosinophils% 0.1 % (0-5); Hematocrit 38.1 % (37-47); Hemoglobin 13.4 g/dL (12.0-15.0); Lymphocyte # 0.99 X10^3/ul (0.83-4.51); Mean Corp Hgb Conc 35.2 g/dL (32-36); Mean Corpuscular Hgb 30.4 pg (27.0-32.0); Mean Corpuscular Volume 86.4 fL (81-99); Mean Platelet Vol. 10.6 fl (6.2-12.0); Monocyte# 1.28 X10^3/uL; Monocyte% 10.4 % (0-10); NRBC Flagged by Analyzer 0 % (0-5); Neutrophil # 9.97 X10^3/uL (2.7-7.7); Platelet Count 287 K/mm3 (150-450); RBC Distribution Width CV 12.5 % (11.6-14.6); RBC Distribution Width SD 39.5 fl (35.1-43.9); Red Blood Count 4.41 M/mm3 (4.2-5.4); White Blood Count 12.3 K/mm3 (4.4-11.0)
[2021-08-12 00:14] LABS: Mucous, Urine 0 SEEN /hpf (<or=2+)
[2021-08-12 00:15] LABS: Color, Urine Yellow (Yellow); Glucose, Dipstick Normal (Normal); Ketone-Dipstick 15 mg/dl (Negative); Leukocyte Esterase-Dipstick 500 /ul (Negative); Nitrite-Dipstick Positive (Negative); Occult Blood-Urine 50 /ul (Negative); Protein-Dipstick 100 mg/dl (Negative); Urine Bilirubin Dipstick Negative (Negative); Urine Clarity Cloudy (Clear); Urine Urobilinogen Normal (Normal)
[2021-08-12 00:31] LABS: Lactic Acid 1.1 mmol/L (0.4-1.9)
[2021-08-12 00:32] LABS: AST(SGOT) 14 U/L (15-37); Alanine Aminotransfer ALT/SGPT 18 U/L (13-56); Albumin, Serum 3.3 g/dL (3.2-5.0); Alkaline Phosphatase 60 U/L (45-117); Anion Gap 7 (5-15); BUN 29 mg/dL (7-18); BUN/Creat Ratio 38.4 RATIO (10-20); Chloride 100 mmol/L (98-107); Creatinine, Serum 0.76 mg/dL (0.55-1.02); EST Glomerular Filtration Rate 78 mL/min (>60); Est Glom Filt Rate - Afr Amer 94 mL/min (>60); Estimated Creatinine Clearance 40.72 ml/min; Globulin 3.2 g/dL (2.2-4.2); Glucose 176 mg/dL (74-106); Potassium 3.2 mmol/L (3.5-5.1); Protein, Total 6.5 g/dL (6.4-8.2); Sodium Level 134 mmol/L (136-145); Troponin-I HS 312 pg/mL (3.0-54.0)
[2021-08-12 00:33] LABS: Bacteria 4+ /hpf (None Seen); Red Blood Cells-Urine 0-5 SEEN /hpf (0-5); Squamous Epithelial Cells - UA 0-5 SEEN /hpf (5-10); White Blood Cells >100 SEEN /hpf (0-5)
[2021-08-12] MEDS: Ceftriaxone 1 GM/50 ML BAG IV ×2 (00:56→21:05)
[2021-08-12] MEDS: Aspirin 81 MG TAB.CHEW 162 MG PO (01:01)
[2021-08-12] MEDS: Potassium Chloride Oral Tablet 20 MEQ 40 MEQ PO (01:02)
--- NOTE | 2021-08-12 01:17 | PCM.HP.STD ---
[facility] - General General Date of Admission: 08/12/21 Date of Service: 08/12/21 Chief Complaint: Generalized weakness HPI Narrative RICO OSPINA, is a 86 F who presented to the emergency department at [facility] on 08/11/2021 for gradual onset generalized weakness that began on Sunday. The patient complains of associated symptoms of urinary frequency, urgency, and dysuria. She has a history of frequent urinary tract infections and in fact has had 3 in the past year. She has urinary incontinence and wears depends to prevent accidents. She has unfortunately become debilitated to the point where she is unable to get up on her own and has been basically lying in bed since Sunday. She has refused to come to the hospital for the past several days but finally agreed to come tonight because she was getting more ill. Family also indicated that her blood pressure has been somewhat labile and is high as 220/120 over the past several days however she was normotensive in the emergency department. She reports she said chills but no documented fever, nausea and vomiting up until today but was able to take p.o. today, and general malaise with generalized weakness. She denies any chest pain, shortness of breath, diarrhea, hematochezia, melena, hematemesis, focal neurological deficit or tingling or numbness. The patient lives alone and is independent in her ADLs and IADLs. She states she has a Hoveround as well as a walker and she typically uses this to ambulate. Family lives nearby and checks on her daily but typically she is able to take care of herself. Vital signs on presentation showed a temperature of 97.9, heart rate of 95, blood pressure of 103/74, respiratory rate of 18, and oxygen saturation was 98% on room air. CBC shows a mild leukocytosis with a white count of 12.3 and a left shift with a an 81% neutrophil count. Her chemistry panel shows mild hyponatremia with a sodium of 134, hypokalemia with a potassium of 3.2, and elevated BUN at 29 but a normal creatinine at 0.76. Her serum glucose is 176. Her lactic acid was 1.1. LFTs are normal. A troponin was obtained and found to be 312 but again as noted above the patient has no chest pain or signs of any acute cardiac process. Her EKG shows normal sinus rhythm without any ST-T wave changes consistent with acute ischemia. Her chest x-ray shows no acute cardiopulmonary process. A CT of her brain was pending on admission however I did review the imaging and see no acute abnormalities. Her UA was positive for ketones, occult blood, nitrite, leukoesterase and she had greater than 100 white cells per high-powered field and 4+ bacteria. Urine culture was sent. Previous urine cultures were reviewed and it seems she has pansensitive E. coli previously Patient was started on ceftriaxone in the emergency department and given IV fluids and request for admission was made given marked debility. [facility] Medical History (Updated 08/12/21 @ 01:[address] Mer Ballesteros DO) Breast cancer, left breast Diabetes mellitus Dyspnea on exertion Hyperlipidemia Left atrial enlargement Home Medications cartilage 40 mg-collagen II-boron 5 mg-hyaluronate sod 3.3 mg tablet 1 ea PO DAILY 03/01/16 [History Last Taken Unknown] omega 6-zge-gvg-fish oil 1,000 mg (120 mg-180 mg) capsule (Fish Oil) See Rx Instructions PO QDAY 02/02/17 [History Last Taken Unknown] metformin 500 mg tablet 1,000 mg PO BID 11/21/17 [History Last Taken Unknown] albuterol sulfate 90 mcg/actuation aerosol inhaler 2 puff inhalation Q4H PRN Asthma #18 grams 11/18/20 [Rx Last Taken Unknown] letrozole 2.5 mg tablet 2.5 mg PO DAILY 11/18/20 [History Last Taken Unknown] fluticasone propionate 50 mcg/actuation nasal spray,suspension (Flonase Allergy Relief) 1 spray intranasal DAILY 05/18/21 [History Last Taken Unknown] tiotropium 2.5 mcg-olodaterol 2.5 mcg/actuation mist for inhalation (Stiolto Respimat) 2 puff inhalation DAILY #3 ea 05/18/21 [Rx Last Taken Unknown] Allergy/AdvReac Type Severity Reaction Status Date / Time No Known Allergies Allergy Verified 05/18/21 13:51 Family History Father CAD (coronary artery disease) Hypertension Myocardial infarction Surgical History H/O left mastectomy (~1998) H/O right mastectomy (~03/13/16) History of left heart catheterization Social History (Updated 08/12/21 @ 01:[address] Mer Ballesteros DO) household members: none housing: house Smoking Status: Never smoker alcohol intake: never substance use type: does not use additional social history: Ambulates with a walker and has a Hoveround at home as well ROS Constitutional Constitutional: Reports anorexia, chills, fatigue, malaise and weakness; Denies change in weight, fever(s), night sweats or other Eyes Eyes: Denies blurry vision, change in eye color, change in vision, discharge from eye(s), double vision, erythema, eye pain, loss of vision or other ENT HEENT: Reports abnormal hearing and hearing loss; Denies dysphagia, ear pain, epistaxis, headache(s), nasal congestion, nasal discharge, post nasal drip, sinus pressure, sore throat or other Cardiovascular Cardiovascular: Denies chest pain, claudication, dyspnea on exertion, edema, lightheadedness, orthopnea, palpitations, paroxysmal nocturnal dyspnea, rapid heart rate, syncope or other Respiratory/Chest Respiratory/Chest: Denies cough, dyspnea, excessive phlegm production, hemoptysis, productive cough, shortness of breath at rest, shortness of breath with exertion, wheezing or other Gastrointestinal Gastrointestinal: Reports nausea and vomiting; Denies abdominal pain, coffee ground emesis, constipation, diarrhea, dyspepsia, hematemesis, hematochezia, loose stools, melena or other Genitourinary Genitourinary: Reports burning urination, dysuria, urinary frequency, urinary incontinence and urinary urgency; Denies difficulty urinating, hematuria, nocturia, urinary hesitancy or other Musculoskeletal Musculoskeletal: Denies arthralgias, back pain, joint pain, joint stiffness, joint swelling, myalgias, neck pain or other Neurologic Neurologic: Denies abnormal gait, abnormal speech, confusion, disequilibrium, dizziness, focal weakness, headache(s), numbness, paresthesias, seizure-like activity, seizures, syncope, tingling, tremor(s) or other Psychiatric Psychiatric: Denies anxiety, depression, homicidal ideation, suicidal ideation or other Endocrine Endocrinology: Denies change in body appearance, cold intolerance, excessive sweating, heat intolerance, polydipsia, polyuria or other Hematologic/Lymphatic Hematologic/Lymphatic: Denies anemia, easy bleeding, easy bruising, lymphadenopathy or other Allergic/Immunologic Allergic/Immunologic: Denies rhinitis, hives, eczemia, asthma or other Vital Signs Vital Signs Vital Signs: 08/11/21 23:04 08/11/21 23:06 08/11/21 23:55 Temperature 97.9 F 97.9 F Temperature Source Temporal Temporal Pulse Rate 95 95 Respiratory Rate 18 18 Respiratory Effort Normal Non-Labored Blood Pressure 103/74 103/74 Blood Pressure Mean 83 83 Pulse Ox Oxygen Delivery Method 08/12/21 00:06 Temperature Temperature Source Pulse Rate 96 Respiratory Rate 20 H Respiratory Effort Blood Pressure 142/94 H Blood Pressure Mean 110 Pulse Ox 98 Oxygen Delivery Method Room Air Weight Weight: 63.63 kg Body Mass Index (BMI) 21.9 Physical Exam Const Constitutional Narrative: Elderly white female lying in bed, daughter at bedside, patient appears nontoxic at this time, however appears uncomfortable and states this is related to the Esquivel. I have asked nursing to remove her Esquivel catheter at this time General Appearance: cooperative HEENT normocephalic and head/scalp atraumatic; Negative for hearing grossly normal bilaterally HEENT Narrative: Extremely hard of hearing-hearing aids are in place but not working at this time, dentures in place, Mallampati 2, no thrush, mucous membranes appear slightly dry Eyes PERRL, EOMs intact bilaterally and conjunctivae normal Eyes Narrative: No scleral icterus Neck no lymphadenopathy, supple, no JVD and no carotid bruits Neck Narrative: Trachea midline, no thyroid enlargement Resp normal respiratory effort, no retractions, no use of accessory muscles and clear to auscultation bilaterally Auscultation: Negative for crackles, rales, rhonchi or wheezes Cardio regular rate, regular rhythm, S1 normal heart sound, S2 normal heart sound, no murmurs, no rub, no gallops, no clicks and no JVD GI normal to inspection, nondistended, normoactive bowel sounds, soft to palpation and non-distended GI Narrative: Mild suprapubic tenderness Palpation: tender suprapubic Extremity no clubbing, cyanosis or edema Extremity Narrative: 2+ pedal pulses Skin no rashes or lesions noted, no wounds, No skin turgor normal, no jaundice, no petechiae and no mottling Neuro oriented x3, CN's II-XII intact bilaterally, moves all extremities and no focal motor deficits Neuro Narrative: Significant generalized weakness Sensorium / Orientation: awake, alert, oriented to person, oriented to place and oriented to time Speech: speech normal Psych affect normal Results Lab / Micro Data Result Diagrams: 08/11/21 23:50 08/11/21 23:50 Labs: Laboratory Results - last 24 hr 08/11/21 23:50: WBC 12.3 H, RBC 4.41, Hgb 13.4, Hct 38.1, MCV 86.4, MCH 30.4, MCHC 35.2, RDW Std Deviation 39.5, RDW Coeff of Gil 12.5, Plt Count 287, MPV 10.6, Immature Gran % (Auto) 0.400, Neut % (Auto) 81.0 H, Lymph % (Auto) 8.0 L, [place] % (Auto) 10.4 H, Eos % (Auto) 0.1, Baso % (Auto) 0.1, Absolute Neuts (auto) 10.0 H, Absolute Lymphs (auto) 0.99, Nucleated RBC % 0 08/11/21 23:50: Sodium 134 L, Potassium 3.2 L, Chloride 100, Carbon Dioxide 27.0, Anion Gap 7, BUN 29 H, Creatinine 0.76, Estim Creat Clear Calc 40.72, Est GFR (MDRD) Af Amer 94, Est GFR (MDRD) Non-Af 78, BUN/Creatinine Ratio 38.4 H, Glucose 176 H, Calcium 9.0, Total Bilirubin 0.80, AST 14 L, ALT 18, Alkaline Phosphatase 60, Troponin I High Sens 312 H*, Total Protein 6.5, Albumin 3.3, Globulin 3.2, Albumin/Globulin Ratio 1.0 08/11/21 23:50: Lactic Acid 1.1 08/12/21 00:00: Urine Color Yellow, Urine Clarity Cloudy, Urine pH 6.0, Ur Specific [place] 1.020, Urine Protein 100 H, Urine Glucose (UA) Normal, Urine Ketones 15 H, Urine Occult Blood 50 H, Urine Nitrite Positive H, Urine Bilirubin Negative, Urine Urobilinogen Normal, Ur Leukocyte Esterase 500 H, Urine RBC 0-5 SEEN, Urine WBC >100 SEEN, Ur Squamous Epith Cells 0-5 SEEN, Urine Bacteria 4+, Urine Mucus 0 SEEN Rhythm Strip Rhythm Strip: Sinus Rhythm Rate: 95 Ectopy: None Radiology Impression Chest X-Ray 08/12/21 00:00 IMPRESSION: Degenerative changes, as described above. No demonstrated acute cardiopulmonary process. Electronically Signed: Iban Guajardo MD at 1:10 EDT , Assessment & Plan Assessment/Plan (1) Urinary tract infection: (2) Acute dehydration: (3) Elevated troponin: (4) Generalized weakness: (5) Acute hypokalemia: (6) Hyponatremia: (7) Leukocytosis: PLAN: Plan Acute urinary tract infection -UA is suggestive of infection -Urine culture pending -Patient with history of UTIs and wears depends at home -Suspect infections may be related to this -Previous urine cultures have been E. coli and have been pansensitive -Continue ceftriaxone -Okay to discontinue Esquivel Acute hypokalemia -40 mill equivalents p.o. potassium given the emergency department -Repeat BMP in a.m. -Check a.m. magnesium level Troponin elevation -Suspect NSTEMI type II related to demand ischemia with dehydration and acute urinary tract infection -We will cycle cardiac enzymes -Start baby aspirin -EKG is unremarkable and patient is chest pain-free Mild hyponatremia -Suspect hypovolemic and related to dehydration -Normal saline at 75 cc/h x 1 bag -Repeat BMP in a.m. Acute dehydration -Elevated BUN with normal creatinine -P.o. intake has been for -IV fluids as noted above -Monitor clinically Generalized weakness -Suspect related to acute UTI and debility over the last 3 to 4 days -Consult PT/OT -Patient may need placement versus home health at discharge DM-2 -Hold home metformin -SSI -Accu-Cheks before meals and at bedtime History of breast cancer -Continue letrozole History of asthma -Continue home inhaler -Continue as needed albuterol DVT prophylaxis -Lovenox subcu 40 mg daily -SCDs CODE STATUS -Full code Charges/Coding Visit Charges Inpatient E&M: 45397 Init Hosp L3
[2021-08-12] MEDS: 0.9% Normal Saline 1,000 ML 75 ML IV (02:07)
--- NOTE | 2021-08-12 02:36 | NURSING ---
L hearing aid remove from pt and locked in the med drawer inside the room.
[2021-08-12 03:07] LABS: Troponin-I HS 274 pg/mL (3.0-54.0)
[2021-08-12 06:06] LABS: Absolute Lymphocyte Count 1.04 X10^3/uL (0.83-4.51); Absolute Neutrophil Count 7.9 X10^3/uL (2.0-7.7); Basophil# 0.01 X10^3/uL; Basophil% 0.1 % (0-1); Eosinophil# 0.05 X10^3/uL; Eosinophils% 0.5 % (0-5); Hematocrit 36.6 % (37-47); Hemoglobin 12.5 g/dL (12.0-15.0); Lymphocyte # 1.04 X10^3/ul (0.83-4.51); Mean Corp Hgb Conc 34.2 g/dL (32-36); Mean Corpuscular Hgb 29.6 pg (27.0-32.0); Mean Corpuscular Volume 86.7 fL (81-99); Mean Platelet Vol. 10.7 fl (6.2-12.0); Monocyte# 1.33 X10^3/uL; Monocyte% 12.8 % (0-10); NRBC Flagged by Analyzer 0 % (0-5); Neutrophil # 7.88 X10^3/uL (2.7-7.7); Neutrophil % 76.1 % (47-70); Platelet Count 261 K/mm3 (150-450); RBC Distribution Width CV 12.5 % (11.6-14.6); RBC Distribution Width SD 39.8 fl (35.1-43.9); Red Blood Count 4.22 M/mm3 (4.2-5.4); White Blood Count 10.4 K/mm3 (4.4-11.0)
[2021-08-12] MEDS: Insulin Lispro 100 UNIT/ML INSULN.PEN SC ×2 (06:13→11:02)
[2021-08-12] MEDS: Menthol/Lanolin/Calamine/Znox 113 GM Tube 1 APPLIC TOPICAL ×2 (06:13→14:50)
[2021-08-12 06:44] LABS: Anion Gap 7 (5-15); BUN 24 mg/dL (7-18); BUN/Creat Ratio 37.9 RATIO (10-20); Calcium,Total 8.2 mg/dL (8.5-10.1); Chloride 103 mmol/L (98-107); Creatinine, Serum 0.63 mg/dL (0.55-1.02); EST Glomerular Filtration Rate 95 mL/min (>60); Est Glom Filt Rate - Afr Amer 115 mL/min (>60); Glucose 167 mg/dL (74-106); Magnesium 1.9 mg/dL (1.6-2.6); Phosphorus 1.8 mg/dL (2.5-4.9); Potassium 3.4 mmol/L (3.5-5.1); Sodium Level 136 mmol/L (136-145); Troponin-I HS 222 pg/mL (3.0-54.0)
[2021-08-12 06:45] LABS: Bedside Glucose 173 mg/dL (74-106)
[2021-08-12] MEDS: Ipratropium/Albuterol Sulfate 3 ML AMPUL.NEB INHALATION ×3 (06:58→19:34)
--- NOTE | 2021-08-12 08:03 | ECHOD_ITS ---
Reason For Study: ELEVATED TROPONIN Procedure This was a 2D Doppler, Color Flow transthoracic echocardiogram. Exam performed portable in patient room. Left Ventricle Overall image quality is good-8 out of 10 Visually estimated left ventricular ejection fraction is about 55 to 60% LV cavity size is normal There is mild to moderate concentric left ventricular hypertrophy with grade 2 diastolic dysfunction No regional wall motion abnormality is apparent There is discrete upper septal thickening without dynamic LVOT obstruction at rest. Right Ventricle There is mild dilatation of the right ventricle with preserved RV systolic function. Atria Left atrium is mildly dilated, measuring 4 cm in transverse diameter, left atrial volume index not available. Right atrium also appears mildly dilated. Mitral Valve Structurally normal mitral valve with mild, 1-2+ mitral regurgitation, central jet. Tricuspid Valve Structurally normal tricuspid valve with mild/1+ tricuspid regurgitation, RV systolic pressure is normal at 18 to 20 mmHg. Aortic Valve Tricuspid aortic valve without aortic stenosis, there is trivial aortic regurgitation, pressure half-time of aortic regurgitation jet is 460 ms. Pulmonic Valve Pulmonic valve is not adequately visualized, there is mild pulmonary regurgitation. Pericardium/Pleural There is no pericardial effusion. IAC There is lipomatous hypertrophy of the interatrial septum. MMode/2D Measurements & Calculations LVIDd: 4.0 cm IVSd: 1.6 cm Ao root diam: 2.9 cm LVIDs: 2.9 cm LVPWd: 1.3 cm RVDd: 3.8 cm FS: 27.1 % LAV(MOD-bp): 50.6 ml LVAd ap4: 22.5 cm2 SV(MOD-sp4): 30.1 ml LAV(MOD-sp2): 48.6 ml LVLd ap4: 6.6 cm LAV(MOD-sp4): 46.3 ml EDV(MOD-sp4): 62.6 ml EDV(sp4-el): 65.3 ml LVAs ap4: 15.6 cm2 LVLs ap4: 6.1 cm ESV(MOD-sp4): 32.6 ml ESV(sp4-el): 34.0 ml EF(MOD-sp4): 48.0 % EF(sp4-el): 47.9 % SV(sp4-el): 31.3 ml LA A4 area: 16.1 cm2 LA dimension(2D): 3.6 cm RA A4 area: 17.4 cm2 Doppler Measurements & Calculations MV E max gorge: 57.7 cm/sec Lat Peak E' Gorge: 4.0 cm/sec Med Peak E' Gorge: 3.2 cm/sec MV A max gorge: 86.8 cm/sec E/E' lat: 14.4 E/E' med: 17.9 MV E/A: 0.66 Ao V2 max: 119.7 cm/sec AI max gorge: 484.5 cm/sec LV V1 max: 115.9 cm/sec Ao max P.7 mmHg AI max P.9 mmHg LV V1 max P.4 mmHg AI dec slope: 322.1 cm/sec2 AI P1/2t: 440.6 msec MR max gorge: 487.9 cm/sec PA V2 max: 127.1 cm/sec TR max gorge: 208.9 cm/sec MR max P.2 mmHg TR max P.9 mmHg ECHO/Echo Complete Interpretation Summary Preserved left ventricular systolic function with mild to moderate concentric l eft ventricular hypertrophy and grade 2 diastolic dysfunction, LVEF about 55 to 60%. Mild biatrial enlargement is present There is mild mitral and tricuspid regurgitation, normal RV systolic pressure Tricuspid aortic valve without aortic stenosis, there is trivial aortic regurgi tation There is discrete upper septal thickening without dynamic LVOT obstruction There is lipomatous hypertrophy of the interatrial septum without obvious inter atrial shunting No pericardial or pleural effusion Inferior vena cava appears mildly dilated, there is no evidence of inferior blanca a caval plethoric Compared to a previous echo report from July 2016, there are no significant michelle nges. Preserved left ventricular systolic function with mild to moderate concentric l eft ventricular hypertrophy and grade 2 diastolic dysfunction, LVEF about 55 to 60%. Mild biatrial enlargement is present There is mild mitral and tricuspid regurgitation, normal RV systolic pressure Tricuspid aortic valve without aortic stenosis, there is trivial aortic regurgi tation There is discrete upper septal thickening without dynamic LVOT obstruction There is lipomatous hypertrophy of the interatrial septum without obvious inter atrial shunting No pericardial or pleural effusion Inferior vena cava appears mildly dilated, there is no evidence of inferior blanca a caval plethoric Compared to a previous echo report from July 2016, there are no significant michelle nges. Ordering Physician: Marian Vela Referring Physician: Sacha Kimble Performed By: Ginny Polk RCS
[2021-08-12] MEDS: Ondansetron 4 MG/2 ML Vial IV (08:10)
[2021-08-12] MEDS: Glucerna Shake 120 ML LIQUID PO ×4 (08:14→17:26)
[2021-08-12] MEDS: Fluticasone 0.05% 1 SPRAY NASAL.SRY NASAL (09:59)
[2021-08-12] MEDS: Enoxaparin 40 MG/0.4 ML Syringe SC (10:00)
[2021-08-12] MEDS: Aspirin 81 MG TAB.CHEW PO (10:07)
[2021-08-12 11:20] LABS: Bedside Glucose 162 mg/dL (74-106)
--- NOTE | 2021-08-12 11:30 | CASEMGMT ---
SHYANN POZO assessment: Face to Face with patient for initial transition planning/care coordination assessment. SHYANN POZO introduced self and role at [facility], pt voices understanding and consents to assessment. Pt is lying in bed in no distress on room air. Pt is A/Ox4 at this time and answers questions appropriately, but is hard of hearing.? Care providers, pharmacy,?and demographics verified/updated. ? Presentation: Pt c/o possible UTI, HTN today and fatigue Admitting dx: UTI, NSTEMI PCP: Shyanne Specialists: None Preferred Pharmacy: [facility] Insurance: [facility] Prescription Benefit:?Yes Living Will/HPOA: Pt has LW/HPOA and is aware that they are not on file at [facility]. Pt's daughter, Saskia Henry, is HPOA, but pt states she would like to switch this to her daughter, Nakita Hoffman. Elizabeth SW aware. LNOK: Nakita Hoffman, daughter; Saskia Henry, daughter Living Arrangements: Pt lives alone in 1 story home with 2 steps in thru garage and states no concerns at home. Pt is independent with ADL's and states family lives close if she does need anything. Transportation: Pt's family drives and states no transportation concerns. DME/HHC: Pt has the following DME: WW, w/c x3, shower chair, electric scooter, and hover round. Pt also states has a golf cart to get around property. Pt declines need for any further DME. Pt states no hx of HHC or SNF. Pt states no concerns with going home at time of discharge. Pt is retired. Pt states does not smoke cigarettes or drink ETOH. Pt voices no further concerns/needs. CM to follow for any further discharge planning/needs. Advised pt to ask for CM if any further questions/concerns/needs arise, voices understanding. Pt Goal: Home ? Plan[place] SHYANN POZO
--- NOTE | 2021-08-12 12:28 | PN.HOSP_ITS ---
Subjective Subjective Patient seen and examined. She has no active complaints today. She is very hard of hearing. She has no active complaints and denies any fever, chills, nausea, vomiting or diarrhea. Review of systems is otherwise negative. Objective Data Objective Data Vital Signs: Vital Signs Temp Pulse Resp BP Pulse Ox 97.9 F 79 18 124/60 H 98 08/12/21 09:49 08/12/21 09:49 08/12/21 09:49 08/12/21 09:49 08/12/21 09:49 Oxygen Delivery Method Room Air Weight: 141 lb 15.643 oz Body Mass Index (BMI) 22.8 Intake & Output: Intake and Output for Last 24 Hours 08/10/21 08/11/21 08/12/21 23:59 23:59 23:59 Intake Total 547.5 / 547.5 Balance 547.5 / 547.5 Lab / Micro Data Result Diagrams: 08/12/21 06:00 08/12/21 06:00 Labs: Laboratory Results - last 24 hr 08/11/21 23:50: WBC 12.3 H, RBC 4.41, Hgb 13.4, Hct 38.1, MCV 86.4, MCH 30.4, MCHC 35.2, RDW Std Deviation 39.5, RDW Coeff of Gil 12.5, Plt Count 287, MPV 10.6, Immature Gran % (Auto) 0.400, Neut % (Auto) 81.0 H, Lymph % (Auto) 8.0 L, [place] % (Auto) 10.4 H, Eos % (Auto) 0.1, Baso % (Auto) 0.1, Absolute Neuts (auto) 10.0 H, Absolute Lymphs (auto) 0.99, Nucleated RBC % 0 08/11/21 23:50: Sodium 134 L, Potassium 3.2 L, Chloride 100, Carbon Dioxide 27.0, Anion Gap 7, BUN 29 H, Creatinine 0.76, Estim Creat Clear Calc 40.72, Est GFR (MDRD) Af Amer 94, Est GFR (MDRD) Non-Af 78, BUN/Creatinine Ratio 38.4 H, Glucose 176 H, Calcium 9.0, Total Bilirubin 0.80, AST 14 L, ALT 18, Alkaline Phosphatase 60, Troponin I High Sens 312 H*, Total Protein 6.5, Albumin 3.3, Globulin 3.2, Albumin/Globulin Ratio 1.0 08/11/21 23:50: Lactic Acid 1.1 08/12/21 00:00: Urine Color Yellow, Urine Clarity Cloudy, Urine pH 6.0, Ur Specific [place] 1.020, Urine Protein 100 H, Urine Glucose (UA) Normal, Urine Ketones 15 H, Urine Occult Blood 50 H, Urine Nitrite Positive H, Urine Bilirubin Negative, Urine Urobilinogen Normal, Ur Leukocyte Esterase 500 H, Urine RBC 0-5 SEEN, Urine WBC >100 SEEN, Ur Squamous Epith Cells 0-5 SEEN, Urine Bacteria 4+, Urine Mucus 0 SEEN 08/12/21 02:17: Troponin I High Sens 274 H* 08/12/21 06:00: WBC 10.4, RBC 4.22, Hgb 12.5, Hct 36.6 L, MCV 86.7, MCH 29.6, MCHC 34.2, RDW Std Deviation 39.8, RDW Coeff of Gil 12.5, Plt Count 261, MPV 10.7, Immature Gran % (Auto) 0.500, Neut % (Auto) 76.1 H, Lymph % (Auto) 10.0 L, [place] % (Auto) 12.8 H, Eos % (Auto) 0.5, Baso % (Auto) 0.1, Absolute Neuts (auto) 7.9 H, Absolute Lymphs (auto) 1.04, Nucleated RBC % 0 08/12/21 06:00: Sodium 136, Potassium 3.4 L, Chloride 103, Carbon Dioxide 26.0, Anion Gap 7, BUN 24 H, Creatinine 0.63, Estim Creat Clear Calc 39.20, Est GFR (MDRD) Af Amer 115, Est GFR (MDRD) Non-Af 95, BUN/Creatinine Ratio 37.9 H, Glucose 167 H, Calcium 8.2 L, Phosphorus 1.8 L, Magnesium 1.9, Troponin I High Sens 222 H* 08/12/21 06:09: POC Glucose 173 H 08/12/21 11:01: POC Glucose 162 H Radiography Diagnostic Testing: Radiology Impression Chest X-Ray 08/12/21 00:00 IMPRESSION: Degenerative changes, as described above. No demonstrated acute cardiopulmonary process. Electronically Signed: Iban Guajardo MD at 1:10 EDT , Brain CT 08/12/21 23:58 IMPRESSION: 1. No acute abnormality identified. 2. Chronic white matter and arterial changes. 3. Opacification of left small mastoid sinuses and mastoid antrum, presumably chronic inflammation. Electronically Signed: Mckenna Oates MD at 1:26 EDT , Rhythm Strip Rhythm Strip: Sinus Rhythm Rate: 95 Ectopy: None Physical Exam Const alert, oriented x3 and no apparent distress Constitutional Narrative: frail HEENT head/scalp atraumatic, moist oral mucous membranes and oropharynx normal Eyes PERRL and EOMs intact bilaterally Neck no lymphadenopathy and supple Resp normal respiratory effort, no retractions, no use of accessory muscles and clear to auscultation bilaterally Cardio regular rate, regular rhythm, S1 normal heart sound, S2 normal heart sound and no murmurs GI normal to inspection, nondistended, normoactive bowel sounds, soft to palpation, non-tender and non-distended Extremity normal to inspection, full ROM and no clubbing, cyanosis or edema Neuro oriented x3, CN's II-XII intact bilaterally and moves all extremities Sensorium / Orientation: awake and alert Psych affect normal Assessment & Plan Assessment/Plan (1) Urinary tract infection: (2) Elevated troponin: (3) Acute dehydration: PLAN: Plan UTI * on IV ceftriaxone * urine cultures pending * previous cultures grew E.coli * #Nonstemi * initial troponin was 312, but trended downward to 222. * likely due to type II nonstemi from dehydration and acute infection * denies any chest pain * 2D echo ordered * #Hypokalemia: K today is 3.4. Will replace and trend #Hyponatremia; #DehydrationL #TYpe 2 diabetes mellitus; metformin on hold. ISS. Accuchecks ACHS #History of breast cancer * s/p mastectomy * on letrozole * #Debillity due to UTI * PT/OT on board. * fall precautions * DVT prophylaxis: lovenox Charges/Coding Visit Charges Inpatient E&M: 35179 Subs Hosp L2
--- NOTE | 2021-08-12 15:25 | CASEMGMT ---
SW checked in with patient as she let RN CM know she would like to change her Healthcare Power of Maintenance Crafts[employer]. Patient was lying on her side facing SW. There was a visitor, I believe it was one of patient's daughters. Patient gave SW a look indicating she did not want to talk about that right now. SW told her SW can check back so she can think about it. SW asked patient if she would like home health and patient declined. JASON told her RN CM can check back with her on that as well. Naina Wang GLEASON OPERATOR MICHAELLE
[2021-08-12 16:55] LABS: Bedside Glucose 139 mg/dL (74-106)
[2021-08-12] MEDS: 0.9% Saline Lock 10 ML Syringe IV (21:06)
[2021-08-12 21:20] LABS: Bedside Glucose 201 mg/dL (74-106)
--- NOTE | 2021-08-12 23:58 | CT_ITS ---
EXAM: CT HEAD WITHOUT INTRAVENOUS CONTRAST CLINICAL INDICATION: altered mental status TECHNIQUE: Multiple axial images were obtained of the head without intravenous contrast. This CT exam was performed using one or more of the following dose reduction techniques: automated exposure control, adjustment of the mA and/or kV according to patient size, and/or use of iterative reconstruction technique. This report was created using [employer] report generation technology. RADIATION DOSE: CTDIvol = 44.99 mGy, DLP = 796.11 mGy-cm COMPARISON: None. FINDINGS: BRAIN AND EXTRA-AXIAL SPACES: Mild cerebral volume loss and mild low-attenuation deep periventricular chronic white matter changes. No intra- or extra-axial hemorrhage. No evidence of acute infarct. No intracranial mass or mass effect. There is preservation of the chou/white matter interface. Posterior fossa structures are unremarkable. No hydrocephalus. Basal cisterns are patent. BONES/JOINTS: Unremarkable. No discrete lytic or blastic abnormalities. VASCULATURE: Moderate cavernous and proximal supraclinoid ICA calcifications. Moderate calcifications of the vertebral arteries at the level of the foramen magnum. SINUSES: Unremarkable as visualized. Clear. MASTOID AIR CELLS: Opacification of left mastoid antrum and mastoid sinuses with mastoidectomy sclerosis. Well-aerated left external auditory canal and middle ear. Hearing aid in the left external ear. ORBITS: Visualized globes, extraocular muscles, optic nerves and retrobulbar fat appear unremarkable. CT/Brain/Head without Contrast IMPRESSION: 1. No acute abnormality identified. 2. Chronic white matter and arterial changes. 3. Opacification of left small mastoid sinuses and mastoid antrum, presumably chronic inflammation. Electronically Signed: Mckenna Oates MD at 1:26 EDT ,
[2021-08-13] VITALS (14 sets, daily range): BP systolic 88–208; BP diastolic 40–103; PULSE 60–94; RESP 16–18; TEMP 36.3–37.4; O2SAT 95–99
[2021-08-13 06:51] LABS: Bedside Glucose 128 mg/dL (74-106)
[2021-08-13] MEDS: Ipratropium/Albuterol Sulfate 3 ML AMPUL.NEB INHALATION ×3 (07:22→19:41)
[2021-08-13 08:40] LABS: Absolute Lymphocyte Count 1.61 X10^3/uL (0.83-4.51); Basophil# 0.02 X10^3/uL; Basophil% 0.3 % (0-1); Eosinophil# 0.21 X10^3/uL; Eosinophils% 2.7 % (0-5); Hematocrit 35.1 % (37-47); Hemoglobin 11.6 g/dL (12.0-15.0); Lymphocyte # 1.61 X10^3/ul (0.83-4.51); Lymphocyte % 20.6 % (19-41); Mean Corpuscular Hgb 29.7 pg (27.0-32.0); Mean Corpuscular Volume 89.8 fL (81-99); Mean Platelet Vol. 11.4 fl (6.2-12.0); Monocyte# 0.96 X10^3/uL; Monocyte% 12.3 % (0-10); NRBC Flagged by Analyzer 0 % (0-5); Neutrophil # 4.96 X10^3/uL (2.7-7.7); Neutrophil % 63.6 % (47-70); Platelet Count 223 K/mm3 (150-450); RBC Distribution Width SD 42.3 fl (35.1-43.9); Red Blood Count 3.91 M/mm3 (4.2-5.4); White Blood Count 7.8 K/mm3 (4.4-11.0)
[2021-08-13 08:56] LABS: Anion Gap 6 (5-15); BUN 21 mg/dL (7-18); BUN/Creat Ratio 33.8 RATIO (10-20); Calcium,Total 8.4 mg/dL (8.5-10.1); Chloride 106 mmol/L (98-107); Creatinine, Serum 0.62 mg/dL (0.55-1.02); EST Glomerular Filtration Rate 97 mL/min (>60); Est Glom Filt Rate - Afr Amer 118 mL/min (>60); Glucose 124 mg/dL (74-106); Potassium 3.3 mmol/L (3.5-5.1); Sodium Level 137 mmol/L (136-145)
[2021-08-13] MEDS: Enoxaparin 40 MG/0.4 ML Syringe SC (09:49)
[2021-08-13] MEDS: Aspirin 81 MG TAB.CHEW PO (09:50)
[2021-08-13] MEDS: Fluticasone 0.05% 1 SPRAY NASAL.SRY NASAL (09:50)
[2021-08-13] MEDS: Glucerna Shake 120 ML LIQUID PO (09:56)
[2021-08-13] MEDS: Insulin Lispro 100 UNIT/ML INSULN.PEN SC ×2 (11:15→16:38)
--- NOTE | 2021-08-13 11:30 | CASEMGMT ---
Social Work SW met w/pt in regard to discharge plan. SW asked if she would like to consider going somewhere for rehab as she did not move very well yesterday with therapy. Pt states she did not have therapy, she just got up to the chair. SW explained that this was most likely her therapy. Pt states she is going to go stay w/her daughter, so does not need to go anywhere for therapy. She states her family can help her. SW inquired about home health, pt declined referral. SW also asked pt about changing POA. Pt states she changed her mind and is going to keep it as her oldest daughter for now. SW remains available should any other needs arise. Otherwise plan will be for pt to go home w/her daughter at discharge. APOLINAR Kwok
[2021-08-13 11:56] LABS: Bedside Glucose 205 mg/dL (74-106)
[2021-08-13] MEDS: Menthol/Lanolin/Calamine/Znox 113 GM Tube 1 APPLIC TOPICAL (15:51)
[2021-08-13] MEDS: Ondansetron 4 MG/2 ML Vial IV (16:29)
[2021-08-13] MEDS: 0.9% Saline Lock 10 ML Syringe IV ×3 (16:30→20:11)
--- NOTE | 2021-08-13 17:03 | PN.HOSP_ITS ---
Subjective Subjective Patient seen and examined. She had no complaints today and had an uneventful night. Review of systems was otherwise negative. Patient was noted to have markedly elevated BP in the afternoon. She is not on any BP meds. She is on room air. Objective Data Objective Data Vital Signs: Vital Signs Temp Pulse Resp BP Pulse Ox 98.6 F 93 16 200/98 H 95 08/13/21 15:40 08/13/21 16:34 08/13/21 15:40 08/13/21 16:34 08/13/21 15:40 Oxygen Delivery Method Room Air Weight: 141 lb 15.643 oz Body Mass Index (BMI) 22.8 Intake & Output: Intake and Output for Last 24 Hours 08/11/21 08/12/21 08/13/21 23:59 23:59 23:59 Intake Total 2397.75 / 2397.75 240 / 240 Balance 2397.75 / 2397.75 240 / 240 Medical Nutrition Assessment Dietitian: Malnutrition Criteria Met Start: 08/12/21 13:45 Freq: Status: Active Protocol: Document 08/12/21 13:45 AG (Rec: 08/12/21 13:46 [id number]) Nutrition Malnutrition Evidence of Malnutrition Exists Yes Malnutrition (severe): Acute Illness/Injury Evidenced By Suboptimal Energy Intake ( Severe),Weight Loss (Severe) Clinical Problem Acute Disease or Injury Related Malnutrition Etiology severe, acute malnutrition r/t inadequate energy intake Signs/Symptoms as evidenced by unintentional wt loss 9#/5.9% wt loss x 1 week; estimated PO intake meeting <50% of estimated energy needs >5 days Status Active Problem Recommendation Dietitian Recommendations/Changes will change diet to regular given acute malnutrition; will increase glucerna ONS to 120mL 4x/day for additional calories/protein if consumed. Lab / Micro Data Result Diagrams: 08/13/21 07:39 08/13/21 07:39 Labs: Laboratory Results - last 24 hr 08/12/21 21:05: POC Glucose 201 H 08/13/21 06:41: POC Glucose 128 H 08/13/21 07:39: WBC 7.8, RBC 3.91 L, Hgb 11.6 L, Hct 35.1 L, MCV 89.8, MCH 29.7, MCHC 33.0, RDW Std Deviation 42.3, RDW Coeff of Gil 13.0, Plt Count 223, MPV 11.4, Immature Gran % (Auto) 0.500, Neut % (Auto) 63.6, Lymph % (Auto) 20.6, [place] % (Auto) 12.3 H, Eos % (Auto) 2.7, Baso % (Auto) 0.3, Absolute Neuts (auto) 5.0, Absolute Lymphs (auto) 1.61, Nucleated RBC % 0 08/13/21 07:39: Sodium 137, Potassium 3.3 L, Chloride 106, Carbon Dioxide 25.0, Anion Gap 6, BUN 21 H, Creatinine 0.62, Estim Creat Clear Calc 39.20, Est GFR (MDRD) Af Amer 118, Est GFR (MDRD) Non-Af 97, BUN/Creatinine Ratio 33.8 H, Glucose 124 H, Calcium 8.4 L 08/13/21 11:14: POC Glucose 205 H Micro: Microbiology 08/12/21 00:00 Urine, Catheterized Urine Culture - Preliminary Presumptive E. coli Rhythm Strip Rhythm Strip: Sinus Rhythm Rate: 95 Ectopy: None Physical Exam Const alert, oriented x3 and no apparent distress Constitutional Narrative: frail HEENT head/scalp atraumatic, moist oral mucous membranes and oropharynx normal Eyes PERRL and EOMs intact bilaterally Neck no lymphadenopathy and supple Resp normal respiratory effort, no retractions, no use of accessory muscles and clear to auscultation bilaterally Cardio regular rate, regular rhythm, S1 normal heart sound, S2 normal heart sound and no murmurs GI normal to inspection, nondistended, normoactive bowel sounds, soft to palpation, non-tender and non-distended Extremity normal to inspection, full ROM and no clubbing, cyanosis or edema Neuro oriented x3, CN's II-XII intact bilaterally and moves all extremities Sensorium / Orientation: awake and alert Psych affect normal Assessment & Plan Assessment/Plan (1) Urinary tract infection: (2) Elevated troponin: (3) Acute dehydration: PLAN: Plan UTI * on IV ceftriaxone * urine cultures growing E coli * will continue ceftriaxone. * #Nonstemi * initial troponin was 312, but trended downward to 222. * likely due to type II nonstemi from dehydration and acute infection * denies any chest pain or shortness of breath * 2D echo showed EF of 55-60%, with normal LV size and mild to moderate LV hypertrophy, with grade 2 diastolic dysfunction, and no regional wall motion abnormality and mild tricuspid regurgitation, as well as mild mitral regurgitation. #Elevated BP * patient's blood pressure went up into the 200s systolic today. Not a known hypertensive. * patient given clonidine 0.2mg x 1. * BP on repeat check was still elevated in the 200s systolic. * Will start on PO amlodipine 10mg daily * IV hydralazine prn * #Hypokalemia: K today is 3.3. Will replace and trend #Hyponatremia: resolved #Type 2 diabetes mellitus: metformin on hold. ISS. Accuchecks ACHS #History of breast cancer * s/p mastectomy * on letrozole * #Debillity due to UTI * PT/OT on board. * fall precautions * DVT prophylaxis: lovenox Charges/Coding Visit Charges Inpatient E&M: 07756 Subs Hosp L3
[2021-08-13] MEDS: hydrALAZINE 20 MG/ML Vial 10 MG IV (17:50)
[2021-08-13] MEDS: cloNIDine HCl 0.2 MG Tablet PO (17:50)
[2021-08-13 17:51] LABS: Bedside Glucose 222 mg/dL (74-106)
[2021-08-13] MEDS: amLODIPine 10 MG Tablet PO (17:58)
[2021-08-13] MEDS: Senna/Docusate Sodium 1 Tablet 2 TABLET PO (20:11)
[2021-08-13] MEDS: Ceftriaxone 1 GM/50 ML BAG IV (20:11)
[2021-08-13] MEDS: 0.9% Normal Saline 1,000 ML 500 ML IV (20:55)
[2021-08-13 21:45] LABS: Bedside Glucose 217 mg/dL (74-106)
[2021-08-14] VITALS (12 sets, daily range): BP systolic 100–130; BP diastolic 55–66; PULSE 58–85; RESP 16–20; TEMP 36.6–37.3; O2SAT 96–100
[2021-08-14] MEDS: Menthol/Lanolin/Calamine/Znox 113 GM Tube 1 APPLIC TOPICAL ×3 (05:01→22:16)
[2021-08-14 06:32] LABS: Absolute Neutrophil Count 5.9 X10^3/uL (2.0-7.7); Basophil# 0.01 X10^3/uL; Basophil% 0.1 % (0-1); Eosinophil# 0.14 X10^3/uL; Eosinophils% 1.8 % (0-5); Hematocrit 32.1 % (37-47); Hemoglobin 10.9 g/dL (12.0-15.0); Lymphocyte % 13.8 % (19-41); Mean Corpuscular Hgb 30.1 pg (27.0-32.0); Mean Corpuscular Volume 88.7 fL (81-99); Mean Platelet Vol. 10.7 fl (6.2-12.0); Monocyte# 0.78 X10^3/uL; Monocyte% 9.8 % (0-10); NRBC Flagged by Analyzer 0 % (0-5); Neutrophil # 5.91 X10^3/uL (2.7-7.7); Neutrophil % 74.1 % (47-70); Platelet Count 211 K/mm3 (150-450); RBC Distribution Width SD 42.5 fl (35.1-43.9); Red Blood Count 3.62 M/mm3 (4.2-5.4)
[2021-08-14 06:55] LABS: Anion Gap 5 (5-15); BUN 18 mg/dL (7-18); BUN/Creat Ratio 29.2 RATIO (10-20); Calcium,Total 8.3 mg/dL (8.5-10.1); Chloride 106 mmol/L (98-107); Creatinine, Serum 0.62 mg/dL (0.55-1.02); EST Glomerular Filtration Rate 98 mL/min (>60); Est Glom Filt Rate - Afr Amer 119 mL/min (>60); Glucose 132 mg/dL (74-106); Potassium 3.7 mmol/L (3.5-5.1); Sodium Level 137 mmol/L (136-145)
[2021-08-14 07:26] LABS: Bedside Glucose 137 mg/dL (74-106)
[2021-08-14] MEDS: Ipratropium/Albuterol Sulfate 3 ML AMPUL.NEB INHALATION ×3 (07:38→19:45)
[2021-08-14] MEDS: Aspirin 81 MG TAB.CHEW PO (09:48)
[2021-08-14] MEDS: Fluticasone 0.05% 1 SPRAY NASAL.SRY NASAL (09:48)
[2021-08-14] MEDS: Enoxaparin 40 MG/0.4 ML Syringe SC (09:48)
[2021-08-14 11:21] LABS: Bedside Glucose 146 mg/dL (74-106)
[2021-08-14] MEDS: Glucerna Shake 120 ML LIQUID PO (14:34)
--- NOTE | 2021-08-14 16:32 | PN.HOSP_ITS ---
Subjective Subjective Patient seen and examined. She said she felt much better today. SHe had no complaints and had an uneventful night. Review of systems is otherwise negative. She was hoping to be discharged home today. She has remained hemodynamically stable. Blood pressure improved. Objective Data Objective Data Vital Signs: Vital Signs Temp Pulse Resp BP Pulse Ox 98 F 70 18 130/66 H 96 08/14/21 16:15 08/14/21 16:15 08/14/21 16:15 08/14/21 16:15 08/14/21 16:15 Oxygen Delivery Method Room Air Weight: 141 lb 15.643 oz Body Mass Index (BMI) 22.8 Intake & Output: Intake and Output for Last 24 Hours 08/12/21 08/13/21 08/14/21 23:59 23:59 23:59 Intake Total 2397.75 / 2397.75 1650 / 1650 520 / 520 Balance 2397.75 / 2397.75 1650 / 1650 520 / 520 Medical Nutrition Assessment Dietitian: Malnutrition Criteria Met Start: 08/12/21 13:45 Freq: Status: Active Protocol: Document 08/12/21 13:45 AG (Rec: 08/12/21 13:46 AG [id number]) Nutrition Malnutrition Evidence of Malnutrition Exists Yes Malnutrition (severe): Acute Illness/Injury Evidenced By Suboptimal Energy Intake ( Severe),Weight Loss (Severe) Clinical Problem Acute Disease or Injury Related Malnutrition Etiology severe, acute malnutrition r/t inadequate energy intake Signs/Symptoms as evidenced by unintentional wt loss 9#/5.9% wt loss x 1 week; estimated PO intake meeting <50% of estimated energy needs >5 days Status Active Problem Recommendation Dietitian Recommendations/Changes will change diet to regular given acute malnutrition; will increase glucerna ONS to 120mL 4x/day for additional calories/protein if consumed. Lab / Micro Data Result Diagrams: 08/14/21 06:25 08/14/21 06:25 Labs: Laboratory Results - last 24 hr 08/13/21 16:33: POC Glucose 222 H 08/13/21 20:53: POC Glucose 217 H 08/14/21 06:25: WBC 8.0, RBC 3.62 L, Hgb 10.9 L, Hct 32.1 L, MCV 88.7, MCH 30.1, MCHC 34.0, RDW Std Deviation 42.5, RDW Coeff of Gil 13.0, Plt Count 211, MPV 10.7, Immature Gran % (Auto) 0.400, Neut % (Auto) 74.1 H, Lymph % (Auto) 13.8 L, [place] % (Auto) 9.8, Eos % (Auto) 1.8, Baso % (Auto) 0.1, Absolute Neuts (auto) 5.9, Absolute Lymphs (auto) 1.10, Nucleated RBC % 0 08/14/21 06:25: Sodium 137, Potassium 3.7, Chloride 106, Carbon Dioxide 26.0, Anion Gap 5, BUN 18, Creatinine 0.62, Estim Creat Clear Calc 39.20, Est GFR (MDRD) Af Amer 119, Est GFR (MDRD) Non-Af 98, BUN/Creatinine Ratio 29.2 H, Glucose 132 H, Calcium 8.3 L 08/14/21 07:19: POC Glucose 137 H 08/14/21 11:15: POC Glucose 146 H Micro: Microbiology 08/11/21 23:55 Blood Culture (Wb) - Left Hand Blood Culture - Preliminary No growth in 48 hours. 08/11/21 23:50 Blood Culture (Wb) - Anticubital Left Blood Culture - Preliminary No growth in 48 hours. 08/12/21 00:00 Urine, Catheterized Urine Culture - Final Presumptive E. coli Rhythm Strip Rhythm Strip: Sinus Rhythm Rate: 95 Ectopy: None Physical Exam Const alert, oriented x3 and no apparent distress Constitutional Narrative: frail HEENT head/scalp atraumatic, moist oral mucous membranes and oropharynx normal Eyes PERRL and EOMs intact bilaterally Neck no lymphadenopathy and supple Resp normal respiratory effort, no retractions, no use of accessory muscles and clear to auscultation bilaterally Cardio regular rate, regular rhythm, S1 normal heart sound, S2 normal heart sound and no murmurs GI normal to inspection, nondistended, normoactive bowel sounds, soft to palpation, non-tender and non-distended Extremity normal to inspection, full ROM and no clubbing, cyanosis or edema Neuro oriented x3, CN's II-XII intact bilaterally and moves all extremities Sensorium / Orientation: awake and alert Psych affect normal Assessment & Plan Assessment/Plan (1) Urinary tract infection: (2) Elevated troponin: (3) Acute dehydration: PLAN: Plan UTI * on IV ceftriaxone * urine cultures growing E coli * on IV ceftriaxone, to complete a 5 day course of antibiotics * #Nonstemi * initial troponin was 312, but trended downward to 222. * likely due to type II nonstemi from dehydration and acute infection * denies any chest pain or shortness of breath * 2D echo showed EF of 55-60%, with normal LV size and mild to moderate LV hypertrophy, with grade 2 diastolic dysfunction, and no regional wall motion abnormality and mild tricuspid regurgitation, as well as mild mitral regurgitation. #Elevated BP * has improved. * started on amlodipine 10mg daily * didnt have a previous diagnosis of hypertension. * IV hydralazine prn * #Hypokalemia: K today is 3.3. Will replace and trend #Hyponatremia: resolved #Type 2 diabetes mellitus: metformin on hold. ISS. Accuchecks ACHS #History of breast cancer * s/p mastectomy * on letrozole * #Debillity due to UTI * PT/OT on board. * fall precautions * has been skilled as needing SNF. Case management to help facilitate SNF placement. * DVT prophylaxis: lovenox Charges/Coding Visit Charges Inpatient E&M: 32981 Subs Hosp L2
[2021-08-14 16:35] LABS: Bedside Glucose 114 mg/dL (74-106)
[2021-08-14] MEDS: 0.9% Saline Lock 10 ML Syringe IV ×2 (22:16→22:26)
[2021-08-14] MEDS: Ceftriaxone 1 GM/50 ML BAG IV (22:16)
[2021-08-14] MEDS: Senna/Docusate Sodium 1 Tablet 2 TABLET PO (22:19)
[2021-08-14 22:56] LABS: Bedside Glucose 153 mg/dL (74-106)
[2021-08-15] VITALS (15 sets, daily range): BP systolic 149–210; BP diastolic 78–111; PULSE 73–107; RESP 16–20; TEMP 36.2–37.4; O2SAT 94–98
--- NOTE | 2021-08-15 04:02 | NURSING ---
Dulcolax not given. PT was nauseous when this nurse went to administer. Gave Zofran for nauseua and it was ineffective. Pt then stated she did not want the laxative at this time. This nurse passed medication along to dayshift nurse
[2021-08-15] MEDS: hydrALAZINE 20 MG/ML Vial 10 MG IV (04:29)
[2021-08-15] MEDS: Ondansetron 4 MG/2 ML Vial IV ×3 (04:29→18:01)
[2021-08-15] MEDS: 0.9% Saline Lock 10 ML Syringe IV ×3 (04:30→22:12)
--- NOTE | 2021-08-15 05:12 | EKG12_ITS ---
Test Reason : CP Blood Pressure : / mmHG Vent. Rate : 092 BPM Atrial Rate : 092 BPM P-R Int : 202 ms QRS Dur : 090 ms QT Int : 340 ms P-R-T Axes : 060 051 077 degrees QTc Int : 420 ms Normal sinus rhythm Septal infarct , age undetermined Abnormal ECG When compared with ECG of 11-AUG-2021 23:38, No significant change was found Confirmed by ELIOT COY, JULIANA ([id number]), editor farm journal CORRINE NICHOLS ([id number]) on 08/16/2021 8:43:11 AM Referred By: Confirmed By:JULIANA MCCABE MD
[2021-08-15 06:27] LABS: Absolute Lymphocyte Count 1.21 X10^3/uL (0.83-4.51); Absolute Neutrophil Count 9.7 X10^3/uL (2.0-7.7); Basophil# 0.04 X10^3/uL; Basophil% 0.3 % (0-1); Eosinophil# 0.17 X10^3/uL; Eosinophils% 1.4 % (0-5); Hematocrit 36.9 % (37-47); Hemoglobin 12.7 g/dL (12.0-15.0); Lymphocyte # 1.21 X10^3/ul (0.83-4.51); Mean Corp Hgb Conc 34.4 g/dL (32-36); Mean Corpuscular Hgb 30.5 pg (27.0-32.0); Mean Corpuscular Volume 88.5 fL (81-99); Mean Platelet Vol. 11.1 fl (6.2-12.0); Monocyte# 0.85 X10^3/uL; NRBC Flagged by Analyzer 0 % (0-5); Neutrophil # 9.74 X10^3/uL (2.7-7.7); Neutrophil % 80.1 % (47-70); Platelet Count 292 K/mm3 (150-450); RBC Distribution Width SD 42.5 fl (35.1-43.9); Red Blood Count 4.17 M/mm3 (4.2-5.4); White Blood Count 12.2 K/mm3 (4.4-11.0)
[2021-08-15] MEDS: Insulin Lispro 100 UNIT/ML INSULN.PEN SC ×3 (06:40→16:19)
[2021-08-15] MEDS: Menthol/Lanolin/Calamine/Znox 113 GM Tube 1 APPLIC TOPICAL ×3 (06:42→22:00)
[2021-08-15 06:51] LABS: Bedside Glucose 199 mg/dL (74-106)
[2021-08-15 06:58] LABS: Anion Gap 7 (5-15); BUN 16 mg/dL (7-18); BUN/Creat Ratio 27.7 RATIO (10-20); Chloride 103 mmol/L (98-107); Creatinine, Serum 0.58 mg/dL (0.55-1.02); EST Glomerular Filtration Rate 106 mL/min (>60); Est Glom Filt Rate - Afr Amer 128 mL/min (>60); Glucose 195 mg/dL (74-106); Potassium 4.1 mmol/L (3.5-5.1); Sodium Level 134 mmol/L (136-145)
[2021-08-15] MEDS: Lisinopril 20 MG Tablet PO (08:26)
[2021-08-15] MEDS: Furosemide 40 MG/4 ML Vial IV (08:26)
[2021-08-15] MEDS: Acetaminophen 325 MG Tablet 650 MG PO (09:59)
[2021-08-15] MEDS: Enoxaparin 40 MG/0.4 ML Syringe SC (09:59)
[2021-08-15] MEDS: Phenazopyridine 95 MG Tablet 190 MG PO ×3 (09:59→21:59)
[2021-08-15] MEDS: Aspirin 81 MG TAB.CHEW PO (11:11)
[2021-08-15 11:36] LABS: Bedside Glucose 226 mg/dL (74-106)
--- NOTE | 2021-08-15 12:40 | NURSING ---
Per daughter at bedside she would like to hold the amplodipine d/t pt systolic pressure being 170's. States since I gave her Lisinopril this morning, she said her bp will drop and tank. This nurse explains he will monitor her bp and give if needed. Not given at this time. Will continue to monitor
[2021-08-15] MEDS: Ipratropium/Albuterol Sulfate 3 ML AMPUL.NEB INHALATION ×2 (12:43→19:32)
[2021-08-15] MEDS: Glucerna Shake 120 ML LIQUID PO ×2 (13:50→21:57)
[2021-08-15 16:40] LABS: Bedside Glucose 167 mg/dL (74-106)
--- NOTE | 2021-08-15 20:46 | PCM.PN.HOSP ---
Subjective Subjective Patient was seen and examined today, she complained of dysuria today, I added on Pyridium to help with this. I had a long discussion with the patient's daughter about her care, patient's daughter states that her and her sister would convince the patient to go to an extended care facility if she needed inpatient rehab services. Patient however was been doing fairly well with physical therapy and may not qualify for a detention facility. Patient continues on IV Rocephin, I explained to the daughter that the patient probably is not emptying her bladder completely and this may be contributing to frequent urinary tract infections. Patient's troponin was also elevated on admission indicating a type II non-STEMI, patient has no complaints of any chest pain, and her echocardiogram showed a normal EF. I explained all this to the patient's daughter.. Objective Data Objective Data Vital Signs: Vital Signs Temp Pulse Resp BP Pulse Ox 99.3 F H 94 16 163/78 H 94 08/15/21 15:50 08/15/21 19:33 08/15/21 19:33 08/15/21 15:50 08/15/21 15:50 Oxygen Delivery Method Room Air Weight: 64.4 kg Body Mass Index (BMI) 22.8 Intake & Output: Intake and Output for Last 24 Hours 08/13/21 08/14/21 08/15/21 23:59 23:59 23:59 Intake Total 1650 / 1650 1050 / 1050 250 / 250 Balance 1650 / 1650 1050 / 1050 250 / 250 Medical Nutrition Assessment Dietitian: Malnutrition Criteria Met Start: 08/12/21 13:45 Freq: Status: Active Protocol: Document 08/15/21 12:05 RMA (Rec: 08/15/21 12:06 RMA [id number]) Nutrition Malnutrition Evidence of Malnutrition Exists Yes Malnutrition (severe): Acute Illness/Injury Evidenced By Suboptimal Energy Intake ( Severe),Weight Loss (Severe) Clinical Problem Acute Disease or Injury Related Malnutrition Etiology severe, acute malnutrition r/t inadequate energy intake Signs/Symptoms as evidenced by unintentional wt loss 9#/5.9% wt loss x 1 week; estimated PO intake meeting <50% of estimated energy needs >5 days Status Active Problem Recommendation Dietitian Recommendations/Changes Will continue liberalized Regular Diet given acute malnutrition/compromised intake at meals and PO glucerna shake 120mL 4x/day with medpass for additional calories/protein if consumed. Trend weights as available. Lab / Micro Data Result Diagrams: 08/16/21 06:26 08/16/21 06:26 Labs: Laboratory Results - last 24 hr 08/14/21 22:42: POC Glucose 153 H 08/15/21 06:05: WBC 12.2 H, RBC 4.17 L, Hgb 12.7, Hct 36.9 L, MCV 88.5, MCH 30.5, MCHC 34.4, RDW Std Deviation 42.5, RDW Coeff of Gil 13.0, Plt Count 292, MPV 11.1, Immature Gran % (Auto) 1.200 H, Neut % (Auto) 80.1 H, Lymph % (Auto) 10.0 L, [place] % (Auto) 7.0, Eos % (Auto) 1.4, Baso % (Auto) 0.3, Absolute Neuts (auto) 9.7 H, Absolute Lymphs (auto) 1.21, Nucleated RBC % 0 08/15/21 06:05: Sodium 134 L, Potassium 4.1, Chloride 103, Carbon Dioxide 24.0, Anion Gap 7, BUN 16, Creatinine 0.58, Estim Creat Clear Calc 39.20, Est GFR (MDRD) Af Amer 128, Est GFR (MDRD) Non-Af 106, BUN/Creatinine Ratio 27.7 H, Glucose 195 H, Calcium 9.0 08/15/21 06:39: POC Glucose 199 H 08/15/21 11:13: POC Glucose 226 H 08/15/21 16:17: POC Glucose 167 H Micro: Microbiology 08/11/21 23:55 Blood Culture (Wb) - Left Hand Blood Culture - Preliminary No growth in 48 hours. 08/11/21 23:50 Blood Culture (Wb) - Anticubital Left Blood Culture - Preliminary No growth in 48 hours. 08/12/21 00:00 Urine, Catheterized Urine Culture - Final Presumptive E. coli Rhythm Strip Rhythm Strip: Sinus Rhythm Rate: 95 Ectopy: None Physical Exam Const alert, oriented x3, no apparent distress and healthy appearing General Appearance: cooperative, well kempt and well developed Orientation / Consciousness: awake, oriented to person, oriented to place and oriented to time HEENT normocephalic and moist oral mucous membranes Eyes PERRL, EOMs intact bilaterally and conjunctivae normal Neck nuchal rigidity, supple, no JVD, thyroid normal and no carotid bruits General: trachea midline Resp normal respiratory effort and clear to auscultation bilaterally Auscultation: Negative for rales, rhonchi or wheezes Cardio regular rate, regular rhythm, no murmurs, no rub and no gallops GI normal to inspection, nondistended, normoactive bowel sounds, soft to palpation, non-tender and non-distended Extremity no clubbing, cyanosis or edema Skin no rashes or lesions noted General Skin Exam: no breakdown Neuro oriented x3, CN's II-XII intact bilaterally, no focal motor deficits and no sensory deficits noted Sensorium / Orientation: awake and alert Speech: speech normal Psych affect normal Assessment & Plan Assessment/Plan (1) Urinary tract infection: PLAN: Plan 1. Acute cystitis with E. coli-continue IV ceftriaxone #2 generalized debility-PT and OT are seeing patient #3 non-STEMI type II-echocardiogram showed normal EF, continue present treatment #4 essential hypertension-patient is currently receiving amlodipine #5 type 2 diabetes-patient will have fingerstick blood sugars performed and sliding scale insulin will be given as needed #6 severe acute protein caloric malnutrition as evidenced by unintentional weight loss of 9 pounds x 1 week, diet will be changed to regular diet and Glucerna ONS 4 times a day will be added Charges/Coding Visit Charges Inpatient E&M: 08441 Subs Hosp L2
[2021-08-15] MEDS: Bisacodyl 5 MG Tablet 10 MG PO (21:59)
[2021-08-15] MEDS: Ceftriaxone 1 GM/50 ML BAG IV (22:09)
[2021-08-16 02:59] VITALS: PULSE 84
[2021-08-16 03:20] VITALS: BP 102/65; PULSE 95; RESP 18; TEMP 36.4; O2SAT 96
[2021-08-16 05:28] VITALS: BP 143/83
[2021-08-16] MEDS: Phenazopyridine 95 MG Tablet 190 MG PO (05:29)
[2021-08-16] MEDS: Menthol/Lanolin/Calamine/Znox 113 GM Tube 1 APPLIC TOPICAL (05:30)
[2021-08-16] MEDS: Insulin Lispro 100 UNIT/ML INSULN.PEN SC (06:22)
[2021-08-16 06:30] LABS: Bedside Glucose 152 mg/dL (74-106)
[2021-08-16 06:42] LABS: Absolute Lymphocyte Count 1.27 X10^3/uL (0.83-4.51); Absolute Neutrophil Count 9.4 X10^3/uL (2.0-7.7); Basophil# 0.02 X10^3/uL; Basophil% 0.2 % (0-1); Eosinophil# 0.07 X10^3/uL; Eosinophils% 0.6 % (0-5); Hemoglobin 13.3 g/dL (12.0-15.0); Lymphocyte # 1.27 X10^3/ul (0.83-4.51); Lymphocyte % 10.6 % (19-41); Mean Corpuscular Hgb 30.2 pg (27.0-32.0); Mean Corpuscular Volume 86.2 fL (81-99); Mean Platelet Vol. 10.5 fl (6.2-12.0); Monocyte# 1.11 X10^3/uL; Monocyte% 9.3 % (0-10); NRBC Flagged by Analyzer 0 % (0-5); Neutrophil # 9.42 X10^3/uL (2.7-7.7); Neutrophil % 78.9 % (47-70); Platelet Count 321 K/mm3 (150-450); RBC Distribution Width CV 12.7 % (11.6-14.6); RBC Distribution Width SD 39.9 fl (35.1-43.9); Red Blood Count 4.41 M/mm3 (4.2-5.4); White Blood Count 11.9 K/mm3 (4.4-11.0)
[2021-08-16 07:02] VITALS: PULSE 93
[2021-08-16 07:02] LABS: Anion Gap 9 (5-15); BUN 21 mg/dL (7-18); BUN/Creat Ratio 29.4 RATIO (10-20); Calcium,Total 8.9 mg/dL (8.5-10.1); Chloride 94 mmol/L (98-107); Creatinine, Serum 0.72 mg/dL (0.55-1.02); EST Glomerular Filtration Rate 83 mL/min (>60); Est Glom Filt Rate - Afr Amer 100 mL/min (>60); Glucose 152 mg/dL (74-106); Potassium 3.3 mmol/L (3.5-5.1); Sodium Level 132 mmol/L (136-145)
--- NOTE | 2021-08-16 08:50 | DCINST_ITS ---
Discharge Instructions Diet Discharge Diet: 1800 Calorie Control Diet Activity Discharge Activity: Return to Normal Activity Weight Bearing Status: Full weight bearing Follow Up Care Test Results: Test results from this visit will be discussed in further detail at your follow- up appointment, if applicable. Discharge Plan Admission Admit Date/Time: 08/12/21 01:09 Primary Reason for Your Visit: urinary tract infection, debility, NSTEMI Attending Provider: Chuy Ching Primary Care Provider: Sacha Kimble Consulting Providers: Mer Ballesteros ; Marian Vela Discharge Orders/Prescriptions Prescriptions: New amlodipine 10 mg Tablet 10 mg PO DAILY Qty: 30 0RF cephalexin 500 mg Capsule 500 mg PO Q12 Qty: 10 0RF aspirin 81 mg Tablet,Chewable 81 mg PO BREAKFAST Qty: 1 0RF metoprolol tartrate 25 mg tablet 12.5 mg PO BID Qty: 30 0RF atorvastatin [Lipitor] 20 mg tablet 20 mg PO DAILY Qty: 30 0RF Continued metformin 500 mg tablet 1,000 mg PO BID letrozole 2.5 mg tablet 2.5 mg PO DAILY albuterol sulfate 90 mcg/actuation HFA aerosol inhaler 2 puff INHALATION Q4H PRN (Reason: Asthma) Qty: 18 6RF fluticasone propionate [Flonase Allergy Relief] 50 mcg/actuation spray,suspension 1 spray intranasal DAILY Rx Instructions: administer into each nostril Stiolto Respimat 2.5-2.5 mcg/actuation mist 2 puff INHALATION DAILY Qty: 3 3RF etriimbpe-nktzqepq-jfh-hyalur 1 EACH tablet 1 ea PO DAILY ergocalciferol (vitamin D2) [Vitamin D2] 1,250 mcg (50,000 unit) Capsule 1,250 mcg PO QWEEK omega 1-jdj-cnb-fish oil [Fish Oil] 1,000 mg (120 mg-180 mg) capsule See Rx Instructions PO QDAY Label Comments: 500mg PO QDAY Rx Instructions: 500mg PO QDAY Referrals / Follow Up: Sacha Kimble MD [Primary Care Provider] - Within 2 Weeks Disposition Disposition (needs filled in before D/C Order can be placed): Home, Self Care
--- NOTE | 2021-08-16 09:11 | CASEMGMT ---
Addendum entered by Hina Medrano 08/16/21 09:30: Dr. Ching spoke with daughterSaskia, and she would like order for OP therapy. This was obtained and placed with pt d/c paperwork. Lizzy BOOTHE CM Original Note: This RN CM to room to discuss d/c plan. Pt aware that therapy is recommending further therapy but pt declines SNF, HHC and OP therapy at this time. Pt states plan is to go home with daughterSaskia, and she states she will have everything that she will need at daughter's 1 story home. Pt aware to call PCP once home if she feels she needs further therapy once home. Pt voices no further questions/concerns/needs. Lizzy BOOTHE CM
--- NOTE | 2021-08-16 09:14 | DS.PCM_ITS ---
Providers Date of Admission: 08/12/21 Date of Discharge: 08/16/21 Primary Care Physician: Dr. Sacha Kimble MD Reason For Visit: UTI/STEMI Diagnosis Discharge Diagnosis (1) Urinary tract infection: Status: Acute Code(s): N39.0 - Urinary tract infection, site not specified Plan 1.? Acute cystitis with E. coli #2 generalized debility- #3 non-STEMI type II #4 essential hypertension- #5 type 2 diabetes #6 severe acute protein caloric malnutrition as evidenced by unintentional weight loss of 9 pounds x 1 week, diet will be changed to regular diet and Glucerna ONS 4 times a day Medications at Discharge Home Medications cartilage 40 mg-collagen II-boron 5 mg-hyaluronate sod 3.3 mg tablet 1 ea PO DAILY supplement 03/01/16 omega 4-mic-nef-fish oil 1,000 mg (120 mg-180 mg) capsule (Fish Oil) See Rx Instructions PO QDAY supplement 02/02/17 metformin 500 mg tablet 1,000 mg PO BID dm 11/21/17 albuterol sulfate 90 mcg/actuation aerosol inhaler 2 puff inhalation Q4H PRN Asthma #18 grams 11/18/20 letrozole 2.5 mg tablet 2.5 mg PO DAILY cx 11/18/20 fluticasone propionate 50 mcg/actuation nasal spray,suspension (Flonase Allergy Relief) 1 spray intranasal DAILY allergies 05/18/21 tiotropium 2.5 mcg-olodaterol 2.5 mcg/actuation mist for inhalation (Stiolto Respimat) 2 puff inhalation DAILY #3 ea 05/18/21 ergocalciferol (vitamin D2) 1,250 mcg (50,000 unit) capsule (Vitamin D2) 1,250 mcg PO QWEEK supplement 08/15/21 amlodipine 10 mg tablet 10 mg PO DAILY #30 tabs 08/16/21 aspirin 81 mg chewable tablet 81 mg PO BREAKFAST #1 TAB 08/16/21 atorvastatin 20 mg tablet (Lipitor) 20 mg PO DAILY #30 tabs 08/16/21 cephalexin 500 mg capsule 500 mg PO Q12 #10 caps 08/16/21 metoprolol tartrate 25 mg tablet 12.5 mg PO BID #30 tabs 08/16/21 ondansetron 4 mg disintegrating tablet 4 mg PO Q8H PRN PRN Nausea #10 tabs 06/22/22 Hospital Course Operations None Procedures 2-D Echocardiogram Summary of Care Provided Minutes Spent on Discharge: 31 Hospital Course: 86-year-old white female presented to the emergency room at [facility] with generalized weakness, urinary frequency, urgency, and dysuria. Work-up in the emergency room included labs which showed a potassium of 3.2, BUN was 29, creatinine however was 0.76. Troponin was obtained and found to be elevated at 3012, EKG showed no acute ischemic changes. UA was positive for ketones, occult blood, nitrite, leukocyte Estrace and greater than 100 white cells per high-power field with 4+ bacteria. IV ceftriaxone was started in the emergency room and the patient was given IV fluids and admitted to PCU. Patient was seen in consultation by cardiology and an echocardiogram was obtained which showed a normal EF. Patient was seen by PT and OT, patient's condition stabilized and physical therapy did not recommend inpatient skilled placement. On 08/16/2021, patient was seen and examined: On examination she appeared in good health and spirits, she does not appear to be in any distress. Vital signs as documented. Skin warm and dry and without overt rashes. Neck without JVD, thyroid appears normal, trachea is midline, neck is supple. Lungs clear, normal air movement was noted. Heart exam notable for regular rhythm, normal sounds and absence of murmurs, rubs or gallops. Abdomen unremarkable and without evidence of organomegaly, masses, or abdominal aortic enlargement, bowel sounds are present in all 4 quadrants, no abdominal tenderness was noted. Extremities nonedematous, no cyanosis was noted, no clubbing was noted. Neuro: Cranial nerves II through XII are grossly intact, no focal motor deficits were noted, sensation to light touch and pinprick is intact, motor exam 5/5 throughout. Psych: Patient is alert and oriented x3, she does not appear anxious or depressed, she does not appear agitated. Patient appears stable for discharge on 08/16/2021, she was discharged home with her daughter-I talked with her daughter briefly before she was discharged. Medical Records Data Medical Nutrition Assessment Dietitian: Malnutrition Criteria Met Start: 08/12/21 13:45 Freq: Status: Active Protocol: Document 08/15/21 12:05 RMA (Rec: 08/15/21 12:06 [facility] [id number]) Nutrition Malnutrition Evidence of Malnutrition Exists Yes Malnutrition (severe): Acute Illness/Injury Evidenced By Suboptimal Energy Intake ( Severe),Weight Loss (Severe) Clinical Problem Acute Disease or Injury Related Malnutrition Etiology severe, acute malnutrition r/t inadequate energy intake Signs/Symptoms as evidenced by unintentional wt loss 9#/5.9% wt loss x 1 week; estimated PO intake meeting <50% of estimated energy needs >5 days Status Active Problem Recommendation Dietitian Recommendations/Changes Will continue liberalized Regular Diet given acute malnutrition/compromised intake at meals and PO glucerna shake 120mL 4x/day with medpass for additional calories/protein if consumed. Trend weights as available. Weight / BMI Weight Weight: 64.4 kg Body Mass Index (BMI) 22.8 ABG / Lab / Microbiology Data Result Diagrams: 08/16/21 06:26 08/16/21 06:26 Laboratory: Laboratory Results - last 24 hr 08/15/21 11:13: POC Glucose 226 H 08/15/21 16:17: POC Glucose 167 H 08/16/21 06:21: POC Glucose 152 H 08/16/21 06:26: WBC 11.9 H, RBC 4.41, Hgb 13.3, Hct 38.0, MCV 86.2, MCH 30.2, MCHC 35.0, RDW Std Deviation 39.9, RDW Coeff of Gil 12.7, Plt Count 321, MPV 10.5, Immature Gran % (Auto) 0.400, Neut % (Auto) 78.9 H, Lymph % (Auto) 10.6 L, [place] % (Auto) 9.3, Eos % (Auto) 0.6, Baso % (Auto) 0.2, Absolute Neuts (auto) 9.4 H, Absolute Lymphs (auto) 1.27, Nucleated RBC % 0 08/16/21 06:26: Sodium 132 L, Potassium 3.3 L, Chloride 94 L, Carbon Dioxide 29.0, Anion Gap 9, BUN 21 H, Creatinine 0.72, Estim Creat Clear Calc 39.20, Est GFR (MDRD) Af Amer 100, Est GFR (MDRD) Non-Af 83, BUN/Creatinine Ratio 29.4 H, Glucose 152 H, Calcium 8.9 Microbiology: Microbiology 08/11/21 23:55 Blood Culture (Wb) - Left Hand Blood Culture - Preliminary No growth in 48 hours. 08/11/21 23:50 Blood Culture (Wb) - Anticubital Left Blood Culture - Preliminary No growth in 48 hours. 08/12/21 00:00 Urine, Catheterized Urine Culture - Final Presumptive E. coli D/C Instructions Discharge Diet: 1800 Calorie Control Diet Weight Bearing Status: Full weight bearing Meaningful Use Info Meaningful Use Diagnoses (Choose all that apply): None applicable Discharge Plan Admission Admit Date/Time: 08/12/21 01:09 Primary Reason for Your Visit: urinary tract infection, debility, NSTEMI Attending Provider: Chuy Ching Primary Care Provider: Sacha Kimble Consulting Providers: Mer Ballesteros ; Marian Vela Instructions Additional Instructions / Restrictions: Patient Problems: Altered Health Status related to Hospitalization Patient Goals: *Optimal Level of Health *Keep Appointments *Medication Compliance *Remain Safe Discharge Orders/Prescriptions Prescriptions: New amlodipine 10 mg Tablet 10 mg PO DAILY Qty: 30 0RF cephalexin 500 mg Capsule 500 mg PO Q12 Qty: 10 0RF aspirin 81 mg Tablet,Chewable 81 mg PO BREAKFAST Qty: 1 0RF metoprolol tartrate 25 mg tablet 12.5 mg PO BID Qty: 30 0RF atorvastatin [Lipitor] 20 mg tablet 20 mg PO DAILY Qty: 30 0RF Continued metformin 500 mg tablet 1,000 mg PO BID letrozole 2.5 mg tablet 2.5 mg PO DAILY albuterol sulfate 90 mcg/actuation HFA aerosol inhaler 2 puff INHALATION Q4H PRN (Reason: Asthma) Qty: 18 6RF fluticasone propionate [Flonase Allergy Relief] 50 mcg/actuation spray,suspension 1 spray intranasal DAILY Rx Instructions: administer into each nostril Stiolto Respimat 2.5-2.5 mcg/actuation mist 2 puff INHALATION DAILY Qty: 3 3RF mhgvgztpo-pvptspwr-igp-hyalur 1 EACH tablet 1 ea PO DAILY ergocalciferol (vitamin D2) [Vitamin D2] 1,250 mcg (50,000 unit) Capsule 1,250 mcg PO QWEEK omega 7-mcn-cyd-fish oil [Fish Oil] 1,000 mg (120 mg-180 mg) capsule See Rx Instructions PO QDAY Label Comments: 500mg PO QDAY Rx Instructions: 500mg PO QDAY No Action ondansetron [ondansetron] 4 MG tablet 4 mg PO Q8H PRN PRN (Reason: Nausea) Qty: 10 0RF Referrals / Follow Up: Sacha Kimble MD [Primary Care Provider] - Within 2 Weeks Disposition Disposition (needs filled in before D/C Order can be placed): Home, Self Care Charges/Coding Visit Charges Inpatient E&M: 13762 Disch Hosp
[2021-08-16 09:20] VITALS: BP 97/57; PULSE 94; RESP 20; TEMP 36.7; O2SAT 94
[2021-08-16] MEDS: Potassium Chloride Oral Tablet 20 MEQ PO (10:11)
[2021-08-16] MEDS: Fluticasone 0.05% 1 SPRAY NASAL.SRY NASAL (10:11)
[2021-08-16] MEDS: Enoxaparin 40 MG/0.4 ML Syringe SC (10:12)
[2021-08-16] MEDS: Cephalexin 500 MG Capsule PO (10:12)
[2021-08-16] MEDS: Glucerna Shake 120 ML LIQUID PO (10:12)
[2021-08-16] MEDS: Aspirin 81 MG TAB.CHEW PO (10:12)
--- NOTE | 2021-08-16 11:51 | PHA.DC.MC ---
Pharmacy Service has performed discharge medication reconciliation and counseling for this patient. 1. ASPIRIN 81MG PO DAILY 2. AMLODIPINE 10MG PO DAILY 3. ATORVASTATIN 20MG PO DAILY 4. CEPHALEXIN 500MG PO BID X 5 DAYS 5. METOPROLOL TARTRATE 12.5MG PO BID The patient's discharge medication list was reviewed for discrepancies and discrepancies were resolved. Home Medications cartilage 40 mg-collagen II-boron 5 mg-hyaluronate sod 3.3 mg tablet 1 ea PO DAILY supplement 03/01/16 omega 2-uqt-rmb-fish oil 1,000 mg (120 mg-180 mg) capsule (Fish Oil) See Rx Instructions PO QDAY supplement 02/02/17 metformin 500 mg tablet 1,000 mg PO BID dm 11/21/17 albuterol sulfate 90 mcg/actuation aerosol inhaler 2 puff inhalation Q4H PRN Asthma #18 grams 11/18/20 letrozole 2.5 mg tablet 2.5 mg PO DAILY cx 11/18/20 fluticasone propionate 50 mcg/actuation nasal spray,suspension (Flonase Allergy Relief) 1 spray intranasal DAILY allergies 05/18/21 tiotropium 2.5 mcg-olodaterol 2.5 mcg/actuation mist for inhalation (Stiolto Respimat) 2 puff inhalation DAILY #3 ea 05/18/21 ergocalciferol (vitamin D2) 1,250 mcg (50,000 unit) capsule (Vitamin D2) 1,250 mcg PO QWEEK supplement 08/15/21 amlodipine 10 mg tablet 10 mg PO DAILY #30 tabs 08/16/21 aspirin 81 mg chewable tablet 81 mg PO BREAKFAST #1 TAB 08/16/21 atorvastatin 20 mg tablet (Lipitor) 20 mg PO DAILY #30 tabs 08/16/21 cephalexin 500 mg capsule 500 mg PO Q12 #10 caps 08/16/21 metoprolol tartrate 25 mg tablet 12.5 mg PO BID #30 tabs 08/16/21 The patient was counseled on the following discharge medications and changes in medications for homegoing were reviewed. The Reason for Use, instructions for use, and potential side effects were reviewed for all new medications. The patient's questions regarding all of their medications were answered. The patient was able to verbally demonstrate an understanding of their discharge medications.
[2021-08-16] MEDS: Ipratropium/Albuterol Sulfate 3 ML AMPUL.NEB INHALATION (13:39)
[2021-08-16 13:55] VITALS: PULSE 86; RESP 18
== END 2021-08-16 13:57 | disposition home or self-care (01) | DRG 689 ==
LOC: ED 08-12 00:56 → PCU 08-12 01:30
PROVIDERS: Student in an Organized Health Care Education/Training Program; Admitting Provider Internal Medicine; Emergency Provider Emergency Medicine; PCP Family Medicine; Visit Provider Internal Medicine
DX: N30.00 Acute cystitis without hematuria (principal); I21.A1 Myocardial infarction type 2; E43 Unspecified severe protein-calorie malnutrition; E87.1 Hypo-osmolality and hyponatremia; E11.9 Type 2 diabetes mellitus without complications; B96.20 Unspecified Escherichia coli [E. coli] as the cause of diseases classified elsewhere; E78.5 Hyperlipidemia, unspecified; E86.0 Dehydration; E87.6 Hypokalemia; I10 Essential (primary) hypertension; J45.909 Unspecified asthma, uncomplicated; Z90.10 Acquired absence of unspecified breast and nipple; Z79.811 Long term (current) use of aromatase inhibitors; Z79.84 Long term (current) use of oral hypoglycemic drugs; H91.90 Unspecified hearing loss, unspecified ear; Z85.3 Personal history of malignant neoplasm of breast; R53.81 Other malaise
CPT/HCPCS: 36415; 51702; 70450; 71045; 80048; 80053; 81001; 82962; 83605; 83735; 84100; 84484; 85025; 87040; 87086; 87088; 87186; 93005; 93306; 94640; 97162; 97166; 97530; 97535; 97802; 99285; J7030; J7040; J7050; A4216; J1940; J2405

== ENCOUNTER 2021-08-17 12:04 | Emergency (ER) | payer MEDICARE, SELFPAY ==
[2021-08-17] VITALS (7 sets, daily range): BP systolic 103–156; BP diastolic 63–82; PULSE 61–76; RESP 13–19; TEMP 36.7–36.8; O2SAT 94–100; BMI 23.3
--- NOTE | 2021-08-17 13:04 | CT_ITS ---
STUDY: CT Abdomen And Pelvis W/ Contrast Injection 08/17/2021 3:22 PM REASON FOR EXAM: Female, 86 years old. Abdominal pain Technologist Notes c/o nausea and vomiting. dc''d yesterday for bladder infection and heart attack, leukocytosis, copd, left breast cancer-bilat mastectomy Individualized dose optimization techniques were used for this CT. COMPARISON: Aug 14 2018 4:12pm CT chest TECHNIQUE: CT Abdomen And Pelvis W/ Contrast Injection Oral and amp;amp; IV Gastrografin and amp;amp; 100mL Isovue-300 FINDINGS: The visualized lung bases are unremarkable. There are scattered blebs and bullae. This can be seen in pulmonary emphysema. There is intrahepatic ductal dilation. 5 mm area of low-density in the gallbladder fossa suggesting region of focal fatty infiltration. There is non-visualization of the gallbladder, which may be secondary to either contraction or a prior cholecystectomy. Normal spleen. There is diffuse atrophy of the pancreas. There is a 13 mm, circumscribed, smooth, right adrenal mass, consistent with an adrenal adenoma. Normal left adrenal gland. No acute findings of the right kidney. No acute findings of the left kidney. Normal visualized stomach. Normal small intestine. Stool throughout the colon. There is non-visualization of the appendix. There are multiple diverticuli of the colon. There is diverticulosis but no radiographic signs for diverticulitis. There are calcifications of the abdominal aorta. This is consistent for atherosclerotic disease. There is NO abdominal aortic aneurysm. Vascular workup can be obtained based on clinical correlation. Normal inferior vena cava. Subcentimeter mesenteric lymph nodes. Normal urinary bladder. There is absence of the uterus consistent with a prior hysterectomy. There is an umbilical hernia containing fat. Minimal inflammatory stranding and subcutaneous air noted in the left subcutaneous fat anteriorly. This can suggest insulin injection sites. There are diffuse degenerative changes of the visualized lumbar spine. Degenerative findings of the hips. CT/Abdomen/Pelvis WITH Contrast IMPRESSION: (NOT LISTED IN ORDER OF SIGNIFICANCE) CONSTIPATION Hysterectomy changes. There are multiple diverticuli of the colon. There is diverticulosis but no radiographic signs for diverticulitis. Other findings as above. Electronically Signed: Viet Figueroa MD at 15:30 EDT ,
[2021-08-17] MEDS: Ondansetron 4 MG/2 ML Vial IV (13:22)
[2021-08-17] MEDS: 0.9% Normal Saline 1,000 ML 1000 ML IV (13:22)
[2021-08-17] MEDS: Morphine 4 MG/ML Syringe IV (13:22)
[2021-08-17 13:34] LABS: Absolute Neutrophil Count 8.4 X10^3/uL (2.0-7.7); Basophil# 0.02 X10^3/uL; Basophil% 0.2 % (0-1); Eosinophil# 0.02 X10^3/uL; Eosinophils% 0.2 % (0-5); Hematocrit 39.7 % (37-47); Hemoglobin 13.6 g/dL (12.0-15.0); Lymphocyte % 10.4 % (19-41); Mean Corp Hgb Conc 34.3 g/dL (32-36); Mean Corpuscular Hgb 29.8 pg (27.0-32.0); Mean Corpuscular Volume 87.1 fL (81-99); Mean Platelet Vol. 10.9 fl (6.2-12.0); Monocyte# 0.98 X10^3/uL; Monocyte% 9.3 % (0-10); NRBC Flagged by Analyzer 0 % (0-5); Neutrophil # 8.36 X10^3/uL (2.7-7.7); Neutrophil % 79.4 % (47-70); Platelet Count 383 K/mm3 (150-450); RBC Distribution Width CV 12.6 % (11.6-14.6); RBC Distribution Width SD 40.1 fl (35.1-43.9); Red Blood Count 4.56 M/mm3 (4.2-5.4); White Blood Count 10.5 K/mm3 (4.4-11.0)
[2021-08-17 13:50] LABS: ALB/GLOB Ratio 0.9 RATIO (0.9-2.4); AST(SGOT) 14 U/L (15-37); Alanine Aminotransfer ALT/SGPT 27 U/L (13-56); Albumin, Serum 3.2 g/dL (3.2-5.0); Alkaline Phosphatase 65 U/L (45-117); Anion Gap 8 (5-15); BUN 31 mg/dL (7-18); BUN/Creat Ratio 35.8 RATIO (10-20); Calcium,Total 9.4 mg/dL (8.5-10.1); Chloride 96 mmol/L (98-107); Creatinine, Serum 0.87 mg/dL (0.55-1.02); EST Glomerular Filtration Rate 66 mL/min (>60); Est Glom Filt Rate - Afr Amer 80 mL/min (>60); Estimated Creatinine Clearance 45.06 ml/min; Globulin 3.5 g/dL (2.2-4.2); Glucose 148 mg/dL (74-106); Potassium 3.9 mmol/L (3.5-5.1); Protein, Total 6.7 g/dL (6.4-8.2); Sodium Level 133 mmol/L (136-145)
[2021-08-17 14:03] LABS: Lactic Acid 1.3 mmol/L (0.4-1.9)
[2021-08-17 15:29] LABS: Color, Urine Amber (Yellow); Glucose, Dipstick Normal (Normal); Ketone-Dipstick 5 mg/dl (Negative); Leukocyte Esterase-Dipstick 500 /ul (Negative); Mucous, Urine 0 SEEN /hpf (<or=2+); Nitrite-Dipstick Positive (Negative); Occult Blood-Urine 10 /ul (Negative); Protein-Dipstick 30 mg/dl (Negative); Specific Gravity, Urine 1.015 (1.002-1.030); Urine Clarity Sl. Cloudy (Clear); Urine Urobilinogen 8 mg/dl (Normal)
[2021-08-17 15:32] LABS: Urine Bilirubin Dipstick 3 mg/dL (Negative)
[2021-08-17 15:46] LABS: Bacteria 1+ /hpf (None Seen); Red Blood Cells-Urine 0-5 SEEN /hpf (0-5); Squamous Epithelial Cells - UA 10-25 SEEN /hpf (5-10); White Blood Cells 25-50 SEEN /hpf (0-5)
--- NOTE | 2021-08-17 16:31 | EDS_ITS ---
HPI History of Present Illness Chief Complaint: Nausea/Vomiting Informant: patient Onset/Context/Timing Onset: Weeks (1.5) Context: Gradual Onset Timing: Continuous Quality: Aching Location: Lower abdomen Worsened by: Urination Relieved by: Nothing Narrative Narrative: Patient presents with nausea and vomiting for the past week and a half. Patient was recently admitted to the hospital for urinary tract infection. Patient was discharged yesterday. Patient started having more nausea and vomiting today. Patient was unable to keep her antibiotics down. Patient was able to keep her blood pressure medication down however. Patient states she has some aching in her lower abdomen. Patient states it is worse with urination. Patient denies any fevers or chills. Patient admits to some constipation. Patient states she has not had a bowel movement in the last week. [facility] Medical History (Updated 08/17/21 @ 16:[address] Roosevelt Red, ) Breast cancer, left breast Diabetes mellitus Dyspnea on exertion Hyperlipidemia Left atrial enlargement Home Medications cartilage 40 mg-collagen II-boron 5 mg-hyaluronate sod 3.3 mg tablet 1 ea PO DAILY supplement 03/01/16 [History Last Taken Unknown] omega 9-hsn-zug-fish oil 1,000 mg (120 mg-180 mg) capsule (Fish Oil) See Rx Instructions PO QDAY supplement 02/02/17 [History Last Taken Unknown] metformin 500 mg tablet 1,000 mg PO BID dm 11/21/17 [History Last Taken Unknown] albuterol sulfate 90 mcg/actuation aerosol inhaler 2 puff inhalation Q4H PRN Asthma #18 grams 11/18/20 [Rx Last Taken Unknown] letrozole 2.5 mg tablet 2.5 mg PO DAILY cx 11/18/20 [History Last Taken Unknown] fluticasone propionate 50 mcg/actuation nasal spray,suspension (Flonase Allergy Relief) 1 spray intranasal DAILY allergies 05/18/21 [History Last Taken Unknown] tiotropium 2.5 mcg-olodaterol 2.5 mcg/actuation mist for inhalation (Stiolto Respimat) 2 puff inhalation DAILY #3 ea 05/18/21 [Rx Last Taken Unknown] ergocalciferol (vitamin D2) 1,250 mcg (50,000 unit) capsule (Vitamin D2) 1,250 mcg PO QWEEK supplement 08/15/21 [History Last Taken Unknown] amlodipine 10 mg tablet 10 mg PO DAILY #30 tabs 08/16/21 [Rx Last Taken Unknown] aspirin 81 mg chewable tablet 81 mg PO BREAKFAST #1 TAB 08/16/21 [Rx Last Taken Unknown] atorvastatin 20 mg tablet (Lipitor) 20 mg PO DAILY #30 tabs 08/16/21 [Rx Last Taken Unknown] cephalexin 500 mg capsule 500 mg PO Q12 #10 caps 08/16/21 [Rx Last Taken Unknown] metoprolol tartrate 25 mg tablet 12.5 mg PO BID #30 tabs 08/16/21 [Rx Last Taken Unknown] ondansetron 4 mg disintegrating tablet 4 mg PO Q8H PRN PRN Nausea #10 tabs 08/17/21 [Rx Last Taken Unknown] Allergy/AdvReac Type Severity Reaction Status Date / Time No Known Allergies Allergy Verified 05/18/21 13:51 Family History Father CAD (coronary artery disease) Hypertension Myocardial infarction Surgical History H/O left mastectomy (~1998) H/O right mastectomy (~03/13/16) History of left heart catheterization Social History household members: none housing: house Smoking Status: Never smoker alcohol intake: never substance use type: does not use additional social history: Ambulates with a walker and has a Hoveround at home as well ROS ROS ED Constitutional Constitutional ED: Denies chills or fever(s) Eyes Eyes: Denies blurry vision or change in vision ENT ENT ED: Denies rhinorrhea or sore throat Cardiovascular Cardiovascular: Denies chest pain or palpitations Respiratory/Chest Respiratory/Chest: Reports dyspnea; Denies cough Gastrointestinal Gastrointestinal: Reports abdominal pain, constipation, nausea and vomiting Genitourinary Genitourinary ED: Reports dysuria; Denies hematuria Musculoskeletal Musculoskeletal: Denies back pain or neck pain Integumentary Denies abscess or rash Neurologic Neurologic: Denies headache(s) or weakness Allergic/Immunologic Allergic/Immunologic ED: Denies mouth swelling or urticaria EXAM Physical Exam Const Vital Signs: 08/17/21 12:05 08/17/21 12:08 08/17/21 13:08 Temperature 98.2 F 98.2 F 98.2 F Temperature Source Temporal Temporal Temporal Pulse Rate 74 75 65 Respiratory Rate 19 H 15 18 Blood Pressure 103/65 103/65 110/63 Blood Pressure Mean 77 77 78 Pulse Ox 97 96 100 Oxygen Delivery Method Room Air Room Air Room Air 08/17/21 14:28 08/17/21 15:00 08/17/21 16:00 Temperature 98.1 F Temperature Source Temporal Pulse Rate 61 64 Respiratory Rate 13 16 Blood Pressure 116/66 143/75 H 156/82 H Blood Pressure Mean 82 97 106 Pulse Ox 95 94 Oxygen Delivery Method Room Air 08/17/21 16:00 Temperature 98.2 F Temperature Source Temporal Pulse Rate 65 Respiratory Rate 17 Blood Pressure 156/82 H Blood Pressure Mean 106 Pulse Ox 94 Oxygen Delivery Method Room Air Positive well nourished and well developed General Appearance ED: well developed HEENT Reports moist mucous membranes Neck supple and no JVD Resp normal respiratory effort and clear to auscultation bilaterally Cardio regular rate, regular rhythm and no murmurs GI normal to inspection, nondistended, normoactive bowel sounds Palpation: soft and tender LLQ, RLQ and suprapubic; Negative for guarding or rebound tenderness present Extremity normal to inspection General Extremety ED: Negative for edema or tenderness General Extremity: Negative for edema Neuro oriented x3, CN's II-XII intact bilaterally and no sensory deficits noted Sensorium / Orientation: alert Motor Exam: strength 5/5 throughout Psych mental status grossly normal Skin no rashes or lesions noted MDM MDM MDM Narrative Medical decision making narrative: Patient was given IV fluids, morphine, and Zofran. CBC was within normal limits. Comprehensive metabolic profile showed a slightly elevated glucose of 148 but was otherwise within normal limits. Lactate was normal. Urinalysis shows leukocyte esterases of 500 with 25-50 white blood cells and 10-25 epithelial cells. There is 1+ bacteria. There are positive nitrates. This appears to be improved from previous result. CT scan of the abdomen pelvis was obtained. There is diverticulosis but no evidence of diverticulitis. There is no evidence of bowel obstruction. This was interpreted by the radiologist and reviewed by myself. Patient is feeling better on reevaluation. Patient was given a prescription for Zofran. Patient was instructed to start with small sips of fluids and advance her diet as tolerated. Patient was instructed to continue her Keflex as prescribed. Patient was instructed to continue her antihypertensive medication as prescribed. Patient was instructed to follow-up with her primary care physician in 3 to 5 days. Patient understood and was agreeable with the plan. All questions were answered. Lab Data Attestation: I reviewed the patient's lab results. Labs: Laboratory Results - last 24 hr 08/17/21 08/17/21 08/17/21 12:09 12:09 12:09 WBC 10.5 RBC 4.56 Hgb 13.6 Hct 39.7 MCV 87.1 MCH 29.8 MCHC 34.3 RDW Std Deviation 40.1 RDW Coeff of Gil 12.6 Plt Count 383 MPV 10.9 Immature Gran % (Auto) 0.500 Neut % (Auto) 79.4 H Lymph % (Auto) 10.4 L [place] % (Auto) 9.3 Eos % (Auto) 0.2 Baso % (Auto) 0.2 Absolute Neuts (auto) 8.4 H Absolute Lymphs (auto) 1.10 Nucleated RBC % 0 Sodium 133 L Potassium 3.9 Chloride 96 L Carbon Dioxide 29.0 Anion Gap 8 BUN 31 H Creatinine 0.87 Estim Creat Clear Calc 45.06 Est GFR (MDRD) Af Amer 80 Est GFR (MDRD) Non-Af 66 BUN/Creatinine Ratio 35.8 H Glucose 148 H Lactic Acid 1.3 Calcium 9.4 Total Bilirubin 0.60 AST 14 L ALT 27 Alkaline Phosphatase 65 Total Protein 6.7 Albumin 3.2 Globulin 3.5 Albumin/Globulin Ratio 0.9 Urine Color Urine Clarity Urine pH Ur Specific [place] Urine Protein Urine Glucose (UA) Urine Ketones Urine Occult Blood Urine Nitrite Urine Bilirubin Urine Urobilinogen Ur Leukocyte Esterase Urine RBC Urine WBC Ur Squamous Epith Cells Urine Bacteria Urine Mucus 08/17/21 13:19 WBC RBC Hgb Hct MCV MCH MCHC RDW Std Deviation RDW Coeff of Gil Plt Count MPV Immature Gran % (Auto) Neut % (Auto) Lymph % (Auto) [place] % (Auto) Eos % (Auto) Baso % (Auto) Absolute Neuts (auto) Absolute Lymphs (auto) Nucleated RBC % Sodium Potassium Chloride Carbon Dioxide Anion Gap BUN Creatinine Estim Creat Clear Calc Est GFR (MDRD) Af Amer Est GFR (MDRD) Non-Af BUN/Creatinine Ratio Glucose Lactic Acid Calcium Total Bilirubin AST ALT Alkaline Phosphatase Total Protein Albumin Globulin Albumin/Globulin Ratio Urine Color [place] Urine Clarity Sl. Cloudy Urine pH 6.0 Ur Specific [place] 1.015 Urine Protein 30 H Urine Glucose (UA) Normal Urine Ketones 5 H Urine Occult Blood 10 H Urine Nitrite Positive H Urine Bilirubin 3 H Urine Urobilinogen 8 H Ur Leukocyte Esterase 500 H Urine RBC 0-5 SEEN Urine WBC 25-50 SEEN Ur Squamous Epith Cells 10-25 SEEN Urine Bacteria 1+ Urine Mucus 0 SEEN Radiography Diagnostic Testing: Clinical Impression(s) from Imaging Studies Abdomen/Pelvis CT 08/17/21 13:04 IMPRESSION: (NOT LISTED IN ORDER OF SIGNIFICANCE) CONSTIPATION Hysterectomy changes. There are multiple diverticuli of the colon. There is diverticulosis but no radiographic signs for diverticulitis. Other findings as above. Electronically Signed: Viet Figueroa MD at 15:30 EDT Reading Location ID and State: [facility] / [place] , [place] , Discharge Plan Triage Chief Complaint: Nausea/Vomiting ED Provider: Roosevelt Red Dx/Rx/DC Orders Clinical Impression: Abdominal pain, Urinary tract infection Instructions: ED CYSTITIS Female Adult, ED Vomiting (Adult) Prescriptions: New ondansetron [ondansetron] 4 MG tablet 4 mg PO Q8H PRN PRN (Reason: Nausea) Qty: 10 0RF No Action metformin 500 mg tablet 1,000 mg PO BID letrozole 2.5 mg tablet 2.5 mg PO DAILY albuterol sulfate 90 mcg/actuation HFA aerosol inhaler 2 puff INHALATION Q4H PRN (Reason: Asthma) Qty: 18 6RF fluticasone propionate [Flonase Allergy Relief] 50 mcg/actuation spray,suspension 1 spray intranasal DAILY Rx Instructions: administer into each nostril Stiolto Respimat 2.5-2.5 mcg/actuation mist 2 puff INHALATION DAILY Qty: 3 3RF mypitzvdv-edjdksbi-ris-hyalur 1 EACH tablet 1 ea PO DAILY ergocalciferol (vitamin D2) [Vitamin D2] 1,250 mcg (50,000 unit) Capsule 1,250 mcg PO QWEEK amlodipine 10 mg Tablet 10 mg PO DAILY Qty: 30 0RF cephalexin 500 mg Capsule 500 mg PO Q12 Qty: 10 0RF aspirin 81 mg Tablet,Chewable 81 mg PO BREAKFAST Qty: 1 0RF metoprolol tartrate 25 mg tablet 12.5 mg PO BID Qty: 30 0RF atorvastatin [Lipitor] 20 mg tablet 20 mg PO DAILY Qty: 30 0RF omega 3-ise-kmp-fish oil [Fish Oil] 1,000 mg (120 mg-180 mg) capsule See Rx Instructions PO QDAY Label Comments: 500mg PO QDAY Rx Instructions: 500mg PO QDAY Primary Care Provider: Sacha Kimble Referrals: Sacha Kimble MD [Primary Care Provider] - 5-7 Days Disposition Disposition: Home, Self Care
== END 2021-08-17 17:11 | disposition home or self-care (01) ==
PROVIDERS: Emergency Provider Emergency Medicine; PCP Family Medicine; Visit Provider Emergency Medicine
DX: N39.0 Urinary tract infection, site not specified (principal); E11.9 Type 2 diabetes mellitus without complications; E78.5 Hyperlipidemia, unspecified; K57.90 Diverticulosis of intestine, part unspecified, without perforation or abscess without bleeding; Z85.3 Personal history of malignant neoplasm of breast
CPT/HCPCS: 74177; 80053; 81001; 83605; 85025; 99285; J7030; Q9967; A4216; J2405

== ENCOUNTER 2021-08-18 21:15 | Emergency (ER) | payer MEDICARE, SELFPAY ==
[2021-08-18 21:17] VITALS: BP 103/60; PULSE 60; RESP 20; TEMP 36.9; O2SAT 98; BMI 23.6
--- NOTE | 2021-08-18 21:39 | EDS_ITS ---
HPI HPI - GI History of Present Illness Chief Complaint: Nausea/Vomiting Informant: patient and family Abdominal Pain/Flank Pain Onset: Days Maximum Severity: Mild Nausea/Vomiting/Emesis GI Symptom: Positive for Nausea and Vomiting Onset: Today and Yesterday Quality: Positive for Nonbilious Severity: Mild Diarrhea/Melena/Hematochezia GI Symptom: Negative for Diarrhea, Melena or Hematochezia Associated Symptoms Associated Symptoms: Negative for Dysuria, Frequency, Hematuria or Urgency Narrative Narrative: 86-year-old female history of breast cancer and diabetes. History of bilateral mastectomies and hysterectomy. She was admitted to the hospital on 08/12/2021 for UTI and nausea vomiting. Discharged on 621. She was seen emergency depart ment last night had a negative work-up was discharged home. Today she returns with nausea vomiting last night and today. No fever. No dysuria. Prior similar symptoms: Yes Recent Illness/Hospitalization: Yes [facility] Medical History Breast cancer, left breast Diabetes mellitus Dyspnea on exertion Hyperlipidemia Left atrial enlargement Home Medications cartilage 40 mg-collagen II-boron 5 mg-hyaluronate sod 3.3 mg tablet 1 ea PO DAILY supplement 03/01/16 [History Last Taken Unknown] omega 9-ksh-six-fish oil 1,000 mg (120 mg-180 mg) capsule (Fish Oil) See Rx Instructions PO QDAY supplement 02/02/17 [History Last Taken Unknown] metformin 500 mg tablet 1,000 mg PO BID dm 11/21/17 [History Last Taken Unknown] albuterol sulfate 90 mcg/actuation aerosol inhaler 2 puff inhalation Q4H PRN Asthma #18 grams 11/18/20 [Rx Last Taken Unknown] letrozole 2.5 mg tablet 2.5 mg PO DAILY cx 11/18/20 [History Last Taken Unknown] fluticasone propionate 50 mcg/actuation nasal spray,suspension (Flonase Allergy Relief) 1 spray intranasal DAILY allergies 05/18/21 [History Last Taken Unknown] tiotropium 2.5 mcg-olodaterol 2.5 mcg/actuation mist for inhalation (Stiolto Respimat) 2 puff inhalation DAILY #3 ea 05/18/21 [Rx Last Taken Unknown] ergocalciferol (vitamin D2) 1,250 mcg (50,000 unit) capsule (Vitamin D2) 1,250 mcg PO QWEEK supplement 08/15/21 [History Last Taken Unknown] amlodipine 10 mg tablet 10 mg PO DAILY #30 tabs 08/16/21 [Rx Last Taken Unknown] aspirin 81 mg chewable tablet 81 mg PO BREAKFAST #1 TAB 08/16/21 [Rx Last Taken Unknown] atorvastatin 20 mg tablet (Lipitor) 20 mg PO DAILY #30 tabs 08/16/21 [Rx Last Taken Unknown] cephalexin 500 mg capsule 500 mg PO Q12 #10 caps 08/16/21 [Rx Last Taken Unknown] metoprolol tartrate 25 mg tablet 12.5 mg PO BID #30 tabs 08/16/21 [Rx Last Taken Unknown] ondansetron 4 mg disintegrating tablet 4 mg PO Q8H PRN PRN Nausea #10 tabs 08/17/21 [Rx Last Taken Unknown] Allergy/AdvReac Type Severity Reaction Status Date / Time No Known Allergies Allergy Verified 05/18/21 13:51 Family History Father CAD (coronary artery disease) Hypertension Myocardial infarction Surgical History H/O left mastectomy (~1998) H/O right mastectomy (~03/13/16) History of left heart catheterization Social History household members: none housing: house Smoking Status: Never smoker alcohol intake: never substance use type: does not use additional social history: Ambulates with a walker and has a Hoveround at home as well ROS ROS ED ROS Narrative Nausea and vomiting. Review of Systems ROS Unobtainable: Denies due to encephalopathy Constitutional Constitutional ED: Denies chills ENT ENT ED: Denies ear pain Cardiovascular Cardiovascular: Denies chest pain Respiratory/Chest Respiratory/Chest: Denies cough Gastrointestinal Gastrointestinal: Reports nausea and vomiting; Denies abdominal pain, constipation, diarrhea or melena Genitourinary Genitourinary ED: Denies dysuria or hematuria Musculoskeletal Musculoskeletal: Denies arthralgias Integumentary Denies abscess Neurologic Neurologic: Denies headache(s) Psychiatric Psychiatric: Denies anxiety Hematologic/Lymphatic Hematologic/Lymphatic: Denies easy bleeding Allergic/Immunologic Allergic/Immunologic ED: Denies mouth swelling EXAM Physical Exam Narrative Exam Narrative: 86-year-old female no acute distress. Initial blood pressure is running low at 103/60. She does not look septic or toxic. She does look mildly dehydrated. H EENT exam mild dehydration. Otherwise unremarkable. Neck nontender no lymphadenopathy. Lungs clear to auscultation. Heart regular rhythm rate about 60 no murmur. Abdomen soft, nontender, nondistended normal bowel sounds no peritoneal signs. No hernia or mass. No signs of obstruction. Moving all 4 extremities. Neurologically she is awake alert with no focal motor deficits. Const Vital Signs: 08/18/21 21:17 Temperature 98.4 F Temperature Source Temporal Pulse Rate 60 Respiratory Rate 20 H Blood Pressure 103/60 Blood Pressure Mean 74 Pulse Ox 98 Oxygen Delivery Method Room Air Positive well nourished and well developed; Negative for obese, cachectic, contractures or unkempt General Appearance ED: well developed; Negative for unkempt, cachectic, contractures or pallor Nutritional Appearance: Negative for cachectic or obese HEENT Reports dry mucous membranes; Denies moist mucous membranes normocephalic and atraumatic; Negative for trauma or tenderness Mouth ED: Yes dry mucous membranes Mouth: dry mucous membranes Eyes PERRL and EOMs intact bilaterally General Eye ED: Negative for pale conjunctiva or scleral icterus Neck no lymphadenopathy and supple General: Negative for tenderness Lymph Lymphatic: Negative for other Resp normal respiratory effort and clear to auscultation bilaterally Effort and Inspection: Negative for respiratory distress Auscultation: Negative for rales, rhonchi or wheezes Cardio regular rate, regular rhythm, S1 normal heart sound and S2 normal heart sound Rate: Negative for bradycardia Rhythm: Negative for abnormal rhythm GI non-tender, non-distended and no masses Inspection: Negative for abdominal distention Auscultation: normoactive bowel sounds Palpation: soft; Negative for tender, guarding or rigid Back/Spine no CVA tenderness General Back: Negative for CVA tenderness Cervical Spine: Negative for cervical spine tenderness Thoracic Spine / Upper Back: Negative for thoracic spinal tenderness Lumbar Spine / Lower Back: Negative for lumbar spinal tenderness Extremity full ROM General Extremety ED: Negative for edema General Extremity: Negative for edema Neuro moves all extremities Sensorium / Orientation: alert, oriented to person, oriented to place and oriented to time; Negative for confused, lethargic or stuporous Motor Exam: strength 5/5 throughout Psych mental status grossly normal and thought process normal Appearance: Negative for unkempt Attitude: No agitated Mood & Affect: Negative for depressed Skin no wounds General Skin Exam: Negative for jaundice or pallor Lesions: no lesions Rashes: no rashes Trauma: Negative for abrasion Nails: Negative for discolored MDM MDM MDM Narrative Medical decision making narrative: 10 [id number] with nausea vomiting. Exam benign. Clinically she looks dehydrated. She will be given a liter of fluid. Zofran screening labs are being obtained. I did review her test from yesterday. She also had a CAT scan which was unremarkable. Repeat exam patient is doing well at 3 PM. Family at bedside. Abdomen is benign. She is feeling improved. After the IV fluids. Her labs are better than they were yesterday. There is nothing to admit her for. I discussed all that with patient and her family. She lives with her daughter. Daughter is willing to take her home. They have appointment to see her primary care physician Dr. Sacha Kimble tomorrow afternoon. It was stressed to the patient that she had to ensure that she was taking plenty of fluids. Use her Zofran as needed for nausea. Lab Data Attestation: I reviewed the patient's lab results. Lab results narrative: CBC shows a white count 11.4. H&H 12 and 35.9. Electrolytes show sodium 133. Gap of 8 BUN and creatinine 22 and 0.7. Liver enzymes unremarkable. Lipase normal at 80. Labs: Laboratory Results - last 24 hr 08/18/21 08/18/21 21:49 21:49 WBC 11.4 H RBC 4.14 L Hgb 12.3 Hct 35.9 L MCV 86.7 MCH 29.7 MCHC 34.3 RDW Std Deviation 39.3 RDW Coeff of Gil 12.3 Plt Count 385 MPV 10.2 Immature Gran % (Auto) 0.500 Neut % (Auto) 82.5 H Lymph % (Auto) 8.5 L Piatt % (Auto) 7.9 Eos % (Auto) 0.2 Baso % (Auto) 0.4 Absolute Neuts (auto) 9.4 H Absolute Lymphs (auto) 0.97 Nucleated RBC % 0 Sodium 133 L Potassium 4.1 Chloride 99 Carbon Dioxide 26.0 Anion Gap 8 BUN 22 H Creatinine 0.75 Estim Creat Clear Calc 39.20 Est GFR (MDRD) Af Amer 95 Est GFR (MDRD) Non-Af 78 BUN/Creatinine Ratio 29.3 H Glucose 163 H Calcium 8.9 Total Bilirubin 0.50 AST 20 ALT 31 Alkaline Phosphatase 62 Total Protein 6.1 L Albumin 3.1 L Globulin 3.0 Albumin/Globulin Ratio 1.0 Lipase 80 Discharge Plan Triage Chief Complaint: Nausea/Vomiting ED Provider: Gibran Pappas Dx/Rx/DC Orders Prescriptions: No Action metformin 500 mg tablet 1,000 mg PO BID letrozole 2.5 mg tablet 2.5 mg PO DAILY albuterol sulfate 90 mcg/actuation HFA aerosol inhaler 2 puff INHALATION Q4H PRN (Reason: Asthma) Qty: 18 6RF fluticasone propionate [Flonase Allergy Relief] 50 mcg/actuation spray,s uspension 1 spray intranasal DAILY Rx Instructions: administer into each nostril Stiolto Respimat 2.5-2.5 mcg/actuation mist 2 puff INHALATION DAILY Qty: 3 3RF krdbgkvqz-kptpizjg-axy-hyalur 1 EACH tablet 1 ea PO DAILY ergocalciferol (vitamin D2) [Vitamin D2] 1,250 mcg (50,000 unit) Capsule 1,250 mcg PO QWEEK amlodipine 10 mg Tablet 10 mg PO DAILY Qty: 30 0RF cephalexin 500 mg Capsule 500 mg PO Q12 Qty: 10 0RF aspirin 81 mg Tablet,Chewable 81 mg PO BREAKFAST Qty: 1 0RF metoprolol tartrate 25 mg tablet 12.5 mg PO BID Qty: 30 0RF atorvastatin [Lipitor] 20 mg tablet 20 mg PO DAILY Qty: 30 0RF ondansetron [ondansetron] 4 MG tablet 4 mg PO Q8H PRN PRN (Reason: Nausea) Qty: 10 0RF omega 7-zut-ims-fish oil [Fish Oil] 1,000 mg (120 mg-180 mg) capsule See Rx Instructions PO QDAY Label Comments: 500mg PO QDAY Rx Instructions: 500mg PO QDAY Primary Care Provider: Sacha Kimble Referrals: Sacha Kimble MD [Primary Care Provider] -
[2021-08-18] MEDS: 0.9% Normal Saline 1,000 ML 1000 ML IV (21:51)
[2021-08-18] MEDS: Ondansetron 4 MG/2 ML Vial IV (21:51)
[2021-08-18 21:57] LABS: Absolute Lymphocyte Count 0.97 X10^3/uL (0.83-4.51); Absolute Neutrophil Count 9.4 X10^3/uL (2.0-7.7); Basophil# 0.04 X10^3/uL; Basophil% 0.4 % (0-1); Eosinophil# 0.02 X10^3/uL; Eosinophils% 0.2 % (0-5); Hematocrit 35.9 % (37-47); Hemoglobin 12.3 g/dL (12.0-15.0); Lymphocyte # 0.97 X10^3/ul (0.83-4.51); Lymphocyte % 8.5 % (19-41); Mean Corp Hgb Conc 34.3 g/dL (32-36); Mean Corpuscular Hgb 29.7 pg (27.0-32.0); Mean Corpuscular Volume 86.7 fL (81-99); Mean Platelet Vol. 10.2 fl (6.2-12.0); Monocyte% 7.9 % (0-10); NRBC Flagged by Analyzer 0 % (0-5); Neutrophil % 82.5 % (47-70); Platelet Count 385 K/mm3 (150-450); RBC Distribution Width CV 12.3 % (11.6-14.6); RBC Distribution Width SD 39.3 fl (35.1-43.9); Red Blood Count 4.14 M/mm3 (4.2-5.4); White Blood Count 11.4 K/mm3 (4.4-11.0)
[2021-08-18 22:18] LABS: AST(SGOT) 20 U/L (15-37); Alanine Aminotransfer ALT/SGPT 31 U/L (13-56); Albumin, Serum 3.1 g/dL (3.2-5.0); Alkaline Phosphatase 62 U/L (45-117); Anion Gap 8 (5-15); BUN 22 mg/dL (7-18); BUN/Creat Ratio 29.3 RATIO (10-20); Calcium,Total 8.9 mg/dL (8.5-10.1); Chloride 99 mmol/L (98-107); Creatinine, Serum 0.75 mg/dL (0.55-1.02); EST Glomerular Filtration Rate 78 mL/min (>60); Est Glom Filt Rate - Afr Amer 95 mL/min (>60); Glucose 163 mg/dL (74-106); Lipase 80 U/L (73-393); Potassium 4.1 mmol/L (3.5-5.1); Protein, Total 6.1 g/dL (6.4-8.2); Sodium Level 133 mmol/L (136-145)
== END 2021-08-18 23:21 | disposition home or self-care (01) ==
PROVIDERS: Emergency Provider Emergency Medicine; PCP Family Medicine; Visit Provider Emergency Medicine
DX: R11.2 Nausea with vomiting, unspecified (principal); E11.9 Type 2 diabetes mellitus without complications; E78.5 Hyperlipidemia, unspecified; Z85.3 Personal history of malignant neoplasm of breast
CPT/HCPCS: 80053; 83690; 85025; 99285; J7030; J2405

== ENCOUNTER → 2022-06-01 | Outpatient (CLI) | payer MEDICARE, SELFPAY ==
[2022-06-01 18:11] LABS: Anion Gap 5 (5-15); BUN 14 mg/dL (7-18); BUN/Creat Ratio 18.4 RATIO (10-20); Calcium,Total 9.2 mg/dL (8.5-10.1); Chloride 100 mmol/L (98-107); Cholesterol 145 mg/dL (200); Creatinine, Serum 0.76 mg/dL (0.55-1.02); EST Glomerular Filtration Rate 77 mL/min (>60); Est Glom Filt Rate - Afr Amer 93 mL/min (>60); Glucose 108 mg/dL (74-106); High Density Lipoprotein 62 mg/dL; Potassium 4.4 mmol/L (3.5-5.1); Sodium Level 132 mmol/L (136-145); Triglycerides 185 mg/dL; Very Low Density Lipoprotein 37 mg/dL (5-40)
[2022-06-01 18:17] LABS: Hemoglobin A1c 6.5 % (3.8-5.6)
== END | disposition home or self-care (01) ==
LOC: MFPLAB 15:37
PROVIDERS: PCP Family Medicine; Referring Provider Family Medicine; Visit Provider Family Medicine
DX: E11.9 Type 2 diabetes mellitus without complications (principal)
CPT/HCPCS: 36415; 80048; 80061; 83036

== ENCOUNTER → 2022-06-29 | Outpatient (CLI) | payer MEDICARE, SELFPAY | END | disposition home or self-care (01) | PROVIDERS: PCP Family Medicine; Visit Provider Family Medicine | DX: R30.0 Dysuria (principal) | CPT/HCPCS: 87077; 87086; 87088; 87186 ==

== ENCOUNTER → 2022-10-18 | Outpatient (CLI) | payer MEDICARE, SELFPAY ==
[2022-10-18 17:57] LABS: Hemoglobin A1c 6.4 % (3.8-5.6)
[2022-10-18 18:02] LABS: Anion Gap 7 (5-15); BUN 13 mg/dL (7-18); BUN/Creat Ratio 17.1 RATIO (10-20); Calcium,Total 9.4 mg/dL (8.5-10.1); Chloride 105 mmol/L (98-107); Cholesterol 151 mg/dL (200); Creatinine, Serum 0.76 mg/dL (0.55-1.02); EST Glomerular Filtration Rate 77 mL/min (>60); Est Glom Filt Rate - Afr Amer 93 mL/min (>60); Glucose 99 mg/dL (74-106); High Density Lipoprotein 70 mg/dL; Sodium Level 137 mmol/L (136-145); Triglycerides 179 mg/dL; Very Low Density Lipoprotein 36 mg/dL (5-40)
== END | disposition home or self-care (01) ==
LOC: MTLAB 14:28
PROVIDERS: PCP Family Medicine; Referring Provider Family Medicine; Visit Provider Family Medicine
DX: Z00.00 Encounter for general adult medical examination without abnormal findings (principal); E11.9 Type 2 diabetes mellitus without complications
CPT/HCPCS: 36415; 80048; 80061; 83036

== ENCOUNTER 2023-01-01 14:00 | Emergency (ER) | payer MEDICARE, SELFPAY ==
[2023-01-01 14:04] VITALS: BP 165/93; PULSE 83; RESP 16; TEMP 36.4; O2SAT 99; BMI 23.8
--- NOTE | 2023-01-01 14:09 | EKG12_ITS ---
Test Reason : CP Blood Pressure : / mmHG Vent. Rate : 079 BPM Atrial Rate : 079 BPM P-R Int : 190 ms QRS Dur : 092 ms QT Int : 366 ms P-R-T Axes : 041 020 059 degrees QTc Int : 419 ms Normal sinus rhythm Normal ECG Present Confirmed by CORRINE COY, [place] ([id number]), associate editor CORRINE NICHOLS ([id number]) on 01/08/2023 10:11:05 AM Referred By: ES/UG Confirmed By:ELODIA CASTLE MD
[2023-01-01 14:31] LABS: Absolute Lymphocyte Count 0.87 X10^3/uL (0.83-4.51); Absolute Neutrophil Count 7.1 X10^3/uL (2.0-7.7); Basophil# 0.03 X10^3/uL; Basophil% 0.3 % (0-1); Eosinophil# 0.12 X10^3/uL; Eosinophils% 1.3 % (0-5); Hematocrit 37.5 % (37-47); Hemoglobin 12.8 g/dL (12.0-15.0); Lymphocyte # 0.87 X10^3/ul (0.83-4.51); Lymphocyte % 9.8 % (19-41); Mean Corp Hgb Conc 34.1 g/dL (32-36); Mean Corpuscular Hgb 29.8 pg (27.0-32.0); Mean Corpuscular Volume 87.4 fL (81-99); Mean Platelet Vol. 9.9 fl (6.2-12.0); Monocyte# 0.76 X10^3/uL; Monocyte% 8.5 % (0-10); NRBC Flagged by Analyzer 0 % (0-5); Neutrophil % 79.8 % (47-70); Platelet Count 269 K/mm3 (150-450); RBC Distribution Width CV 13.1 % (11.6-14.6); RBC Distribution Width SD 41.9 fl (35.1-43.9); Red Blood Count 4.29 M/mm3 (4.2-5.4); White Blood Count 8.9 K/mm3 (4.4-11.0)
--- NOTE | 2023-01-01 14:40 | RAD_ITS ---
STUDY: X-RAY CHEST REASON FOR EXAM: Female, 87 years old. Chest pain TECHNIQUE: Single AP portable view of the chest. COMPARISON: Comparison is made with prior study dated August 12, 2021. FINDINGS: Surgical clips are seen in the right axilla. Hyperinflation. Stable mild increased markings at the right lung apex suggestive of scarring. Mild increased markings are also seen in the medial aspect of the left upper lobe. Scattered calcified granulomas. There is no demonstrated pleural abnormality. Normal size heart. Normal mediastinum and rashid. Normal visualized pulmonary arteries. There is atherosclerotic calcification of the aortic arch with tortuosity. There are degenerative changes of the visualized thoracic spine. Normal visualized ribs, clavicles, and shoulders. There is no demonstrated abnormality of the visualized soft tissue structures of the upper abdomen. RAD/Chest 1 View (Portable) IMPRESSION: Hyperinflation. No acute abnormality is seen. Electronically Signed: Wood Nino MD at 15:05 EST ,
[2023-01-01 14:53] LABS: Anion Gap 5 (5-15); BUN 13 mg/dL (7-18); BUN/Creat Ratio 14.7 RATIO (10-20); Calcium,Total 9.4 mg/dL (8.5-10.1); Chloride 102 mmol/L (98-107); Creatinine, Serum 0.89 mg/dL (0.55-1.02); EST Glomerular Filtration Rate 64 mL/min (>60); Est Glom Filt Rate - Afr Amer 78 mL/min (>60); Estimated Creatinine Clearance 43.26 ml/min; Glucose 132 mg/dL (74-106); Potassium 3.9 mmol/L (3.5-5.1); Sodium Level 135 mmol/L (136-145); Troponin-I HS (w/2H Reflex) 6 pg/mL (3.0-54.0)
[2023-01-01 16:02] VITALS: BP 168/78; PULSE 76; RESP 18
[2023-01-01 16:27] LABS: Reflex Troponin-HS? (from REC) Y
[2023-01-01 17:09] LABS: Troponin-I HS 7 pg/mL (3.0-54.0)
--- NOTE | 2023-01-01 17:19 | ED.VIS.CHEST ---
HPI History of Present Illness Chief Complaint: Chest Pain Informant: patient Onset/Context/Timing Onset: Days Activity at onset: gradual Timing: Intermittent Quality: Positive for Sharp Location: Left Parasternal Worsened By: Eating Relieved By: NSAIDS (3 baby aspirin) Associated Symptoms: Positive for Nausea, Dyspnea and Acid Reflux; Negative for Vomiting, Diaphoresis, Cough, Fever, Lightheadedness or Palpitations Narrative Narrative: Patient presents with chest pain that has been intermittent for the past few days. Patient describes it as sharp. Patient states it is over the left parasternal area. Patient states it radiates straight into her back. Patient states it is worse sometimes after eating. Patient states she took 3 baby aspirin yesterday which helped with her pain. Patient admits to some nausea but denies any vomiting. Patient admits to some mild shortness of breath but denies any cough or fevers. Patient admits to some reflux symptoms. Patient denies any palpitations. Patient denies any diaphoresis. CVD Risk Factors: Negative for Hypertension, Diabetes, Hypercholesterolemia, Family History 1' </=55 or Smoking PE Risk Factors: Positive for Cancer; Negative for Recent Travel/Surgery, Recent Immobilization, Prior DVT or PE or OCP + Smoking + >/=35 PFSH [facility] Medical History (Updated 01/01/23 @ 17:[address] Roosevelt Red, DO) Acute dehydration Acute hypokalemia Breast cancer, left breast Diabetes mellitus Dyspnea on exertion Hyperlipidemia Left atrial enlargement Leukocytosis Urinary tract infection Home Medications cartilage 40 mg-collagen II-boron 5 mg-hyaluronate sod 3.3 mg tablet 1 ea PO DAILY supplement 03/01/16 [History Last Taken Unknown] omega 5-ugw-tnf-fish oil 1,000 mg (120 mg-180 mg) capsule (Fish Oil) See Rx Instructions PO QDAY supplement 02/02/17 [History Last Taken Unknown] metformin 500 mg tablet 1,000 mg PO BID dm 11/21/17 [History Last Taken Unknown] letrozole 2.5 mg tablet 2.5 mg PO DAILY cx 11/18/20 [History Last Taken Unknown] fluticasone propionate 50 mcg/actuation nasal spray,suspension (Flonase Allergy Relief) 1 spray intranasal DAILY allergies 05/18/21 [History Last Taken Unknown] ergocalciferol (vitamin D2) 1,250 mcg (50,000 unit) capsule (Vitamin D2) 1,250 mcg PO QWEEK supplement 08/15/21 [History Last Taken Unknown] amlodipine 10 mg tablet 10 mg PO DAILY #30 tabs 08/16/21 [Rx Last Taken Unknown] aspirin 81 mg chewable tablet 81 mg PO BREAKFAST #1 TAB 08/16/21 [Rx Last Taken Unknown] atorvastatin 20 mg tablet (Lipitor) 20 mg PO DAILY #30 tabs 08/16/21 [Rx Last Taken Unknown] metoprolol tartrate 25 mg tablet 12.5 mg (1/2 x 25 mg) PO BID #30 tabs 08/16/21 [Rx Last Taken Unknown] Disability Placard #1 ea 06/16/22 [Rx Last Taken Unknown] albuterol sulfate 90 mcg/actuation aerosol inhaler 2 puff inhalation Q4H PRN Asthma #18 grams 06/16/22 [Rx Last Taken Unknown] tiotropium 2.5 mcg-olodaterol 2.5 mcg/actuation mist for inhalation (Stiolto Respimat) 2 puff inhalation DAILY #3 ea 11/13/22 [Rx Last Taken Unknown] Allergy/AdvReac Type Severity Reaction Status Date / Time No Known Allergies Allergy Verified 01/01/23 14:04 Family History Father CAD (coronary artery disease) Hypertension Myocardial infarction Surgical History H/O left mastectomy (~1998) H/O right mastectomy (~03/13/16) History of left heart catheterization Social History household members: none housing: house Smoking Status: Never smoker alcohol intake: never substance use type: does not use additional social history: Ambulates with a walker and has a Hoveround at home as well ROS ROS ED Constitutional Constitutional ED: Denies chills or fever(s) Eyes Eyes: Denies blurry vision or change in vision ENT ENT ED: Denies rhinorrhea or sore throat Cardiovascular Cardiovascular: Reports chest pain; Denies palpitations Respiratory/Chest Respiratory/Chest: Reports dyspnea; Denies cough Gastrointestinal Gastrointestinal: Denies abdominal pain, nausea or vomiting Genitourinary Genitourinary ED: Denies dysuria or hematuria Musculoskeletal Musculoskeletal: Reports back pain; Denies neck pain Integumentary Denies abscess or rash Neurologic Neurologic: Denies headache(s) or weakness Allergic/Immunologic Allergic/Immunologic ED: Denies mouth swelling or urticaria EXAM Physical Exam Const Vital Signs: 01/01/23 14:04 Temperature 97.6 F L Temperature Source Temporal Pulse Rate 83 Respiratory Rate 16 Blood Pressure 165/93 H Blood Pressure Mean 117 Pulse Ox 99 Oxygen Delivery Method Room Air Positive well nourished and well developed General Appearance ED: well developed and NAD Neck supple and no JVD Chest Wall Chest Narrative: There is mild tenderness over the left parasternal area. There is no edema or ecchymosis. There is no bony crepitance or step-off. There is no subcutaneous emphysema noted. Resp normal respiratory effort and clear to auscultation bilaterally Cardio regular rate and regular rhythm GI soft to palpation, non-tender and non-distended Extremity normal to inspection Neuro oriented x3, CN's II-XII intact bilaterally and no sensory deficits noted Sensorium / Orientation: awake and alert Motor Exam: strength 5/5 throughout Psych mental status grossly normal Heart Score History: Slightly/Non-Suspicious ECG: Normal Age: >/= 65 years Risk Factors: No Risk Factors Troponin: </= Normal Limit Score: 2 MDM MDM MDM Narrative Medical decision making narrative: Differential diagnosis includes cardiac dysrhythmia, cardiac ischemia, pneumonia, pneumothorax, and musculoskeletal pain. Patient has a Wells score of 0, therefore, I do not feel this is from a pulmonary embolism. EKG will be obtained to assess for cardiac dysrhythmia and cardiac ischemia. Chest x-ray will be obtained to assess for pneumonia and pneumothorax. CBC will be obtained to assess for anemia and leukocytosis. Basic metabolic profile will be obtained to assess for electrolyte abnormality and renal function. High-sensitivity troponin will be obtained to assess for cardiac ischemia. 2-hour repeat high-sensitivity troponin will be obtained to assess for ongoing cardiac ischemia. Lab Data Attestation: I reviewed the patient's lab results. Lab results narrative: CBC was reviewed and was within normal limits. Basic metabolic profile was reviewed and was within normal limits. Initial high-sensitivity troponin was reviewed and was normal at 6. 2-hour repeat high-sensitivity troponin was reviewed and was normal at 7. Labs: Laboratory Results - last 24 hr 01/01/23 01/01/23 14:20 16:40 WBC 8.9 RBC 4.29 Hgb 12.8 Hct 37.5 MCV 87.4 MCH 29.8 MCHC 34.1 RDW Std Deviation 41.9 RDW Coeff of Gil 13.1 Plt Count 269 MPV 9.9 Immature Gran % (Auto) 0.300 Neut % (Auto) 79.8 H Lymph % (Auto) 9.8 L [place] % (Auto) 8.5 Eos % (Auto) 1.3 Baso % (Auto) 0.3 Absolute Neuts (auto) 7.1 Absolute Lymphs (auto) 0.87 Nucleated RBC % 0 Sodium 135 L Potassium 3.9 Chloride 102 Carbon Dioxide 28.0 Anion Gap 5 BUN 13 Creatinine 0.89 Estim Creat Clear Calc 43.26 Est GFR (MDRD) Af Amer 78 Est GFR (MDRD) Non-Af 64 BUN/Creatinine Ratio 14.7 Glucose 132 H Calcium 9.4 Troponin I High Sens 6 7 Radiography Diagnostic Testing: Clinical Impression(s) from Imaging Studies Chest X-Ray 01/01/23 14:40 IMPRESSION: Hyperinflation. No acute abnormality is seen. Electronically Signed: Wood Nino MD at 15:05 EST , Portable 1 view chest x-ray was obtained. On my independent interpretation, lung sierra are clear. There is normal cardiac silhouette. Bony thorax is normal. There is no acute process noted. Radiologist also interpreted the x-ray and agrees. EKG Initial EKG: Attestation: I personally reviewed and interpreted this EKG as follows: Interpretation: Sinus Rhythm (79) and No Acute Injury Pattern Comments: EKG was obtained. On my independent interpretation, it showed a normal sinus rhythm with a rate of 79. ID interval, QRS interval, and QTc intervals were all normal. [place] was normal. There are no acute ST or T wave changes. Prior EKG tracings: available for review Prior: Unchanged (08/15/2021) Treatment and Re-Evaluation :: Patient was advised of her findings. Patient has a HEART score of 2. Patient was advised that this is low risk for acute cardiac event. Patient was instructed take aspirin or Tylenol as needed for pain. Patient was instructed to follow-up with her primary care physician in 5 to 7 days for further evaluation. Patient understood and was agreeable with the plan. All questions were answered. Discharge Plan Triage Chief Complaint: Chest Pain ED Provider: Roosevelt Red Dx/Rx/DC Orders Clinical Impression: Chest pain of uncertain etiology, Moderate COPD (chronic obstructive pulmonary disease) Instructions: ED Chest Pain, Uncertain Cause Prescriptions: No Action metformin 500 mg tablet 1,000 mg PO BID letrozole 2.5 mg tablet 2.5 mg PO DAILY fluticasone propionate [Flonase Allergy Relief] 50 mcg/actuation spray,suspension 1 spray intranasal DAILY Rx Instructions: administer into each nostril albuterol sulfate 90 mcg/actuation HFA aerosol inhaler 2 puff INHALATION Q4H PRN (Reason: Asthma) Qty: 18 6RF (DME) Disability Placard See Rx Instructions .Route .MEDSUPPLY Qty: 1 0RF Rx Instructions: Expires 06/17/2027 npdalafwn-jbvhzstz-cdk-hyalur 1 EACH tablet 1 ea PO DAILY ergocalciferol (vitamin D2) [Vitamin D2] 1,250 mcg (50,000 unit) Capsule 1,250 mcg PO QWEEK amlodipine 10 mg Tablet 10 mg PO DAILY Qty: 30 0RF aspirin 81 mg Tablet,Chewable 81 mg PO BREAKFAST Qty: 1 0RF metoprolol tartrate 25 mg tablet 12.5 mg PO BID Qty: 30 0RF atorvastatin [Lipitor] 20 mg tablet 20 mg PO DAILY Qty: 30 0RF omega 1-nbj-gkx-fish oil [Fish Oil] 1,000 mg (120 mg-180 mg) capsule See Rx Instructions PO QDAY Patient Comments: 500mg PO QDAY Rx Instructions: 500mg PO QDAY Stiolto Respimat 2.5-2.5 mcg/actuation mist 2 puff INHALATION DAILY Qty: 3 3RF Primary Care Provider: Sacha Kimble Referrals: Sacha Kimble MD [Primary Care Provider] - 5-7 Days Disposition Disposition: Home, Self Care
[2023-01-01] MEDS: Aspirin 81 MG TAB.CHEW 324 MG PO (18:01)
== END 2023-01-01 18:06 | disposition home or self-care (01) ==
PROVIDERS: Emergency Provider Emergency Medicine; PCP Family Medicine; Visit Provider Emergency Medicine
DX: R07.9 Chest pain, unspecified (principal); J44.9 Chronic obstructive pulmonary disease, unspecified; E11.9 Type 2 diabetes mellitus without complications; E78.5 Hyperlipidemia, unspecified; Z85.3 Personal history of malignant neoplasm of breast; Z79.84 Long term (current) use of oral hypoglycemic drugs; Z79.82 Long term (current) use of aspirin; Z79.899 Other long term (current) drug therapy; Z90.13 Acquired absence of bilateral breasts and nipples
CPT/HCPCS: 71045; 80048; 84484; 85025; 93005; 99285; A4216

== ENCOUNTER → 2023-01-24 | Outpatient (CLI) | payer MEDICARE, SELFPAY ==
--- NOTE | 2023-01-24 15:10 | RAD_ITS ---
STUDY: X-RAY - ACUTE ABDOMINAL SERIES REASON FOR EXAM: Female, 87 years old. Left lower quadrant pain. TECHNIQUE: Single view of the chest. Supine, and erect view(s) of the abdomen were obtained. COMPARISON: Chest dated January 01, 2023 FINDINGS: Stable cardiomegaly, aortic tortuosity with calcification with mild hyperinflation. Mild gaseous distention of colon with air seen to the rectosigmoid. No disproportionate dilatation of bowel. Moderate amount of feces in the colon. Normal visualized soft tissue structures of the abdomen. Normal visualized osseous structures. RAD/Acute Abdomen Inc Chest IMPRESSION: No acute abnormality of the chest, abdomen or pelvis identified Electronically Signed: Inderjit Yeung MD at 11:14 EST ,
[2023-01-24 17:34] LABS: Absolute Lymphocyte Count 0.82 X10^3/uL (0.83-4.51); Absolute Neutrophil Count 4.9 X10^3/uL (2.0-7.7); Basophil# 0.03 X10^3/uL; Basophil% 0.5 % (0-1); Eosinophil# 0.12 X10^3/uL; Eosinophils% 1.8 % (0-5); Hematocrit 38.2 % (37-47); Hemoglobin 12.9 g/dL (12.0-15.0); Lymphocyte # 0.82 X10^3/ul (0.83-4.51); Lymphocyte % 12.5 % (19-41); Mean Corp Hgb Conc 33.8 g/dL (32-36); Mean Corpuscular Hgb 29.7 pg (27.0-32.0); Mean Corpuscular Volume 87.8 fL (81-99); Monocyte# 0.63 X10^3/uL; Monocyte% 9.6 % (0-10); NRBC Flagged by Analyzer 0 % (0-5); Neutrophil # 4.94 X10^3/uL (2.7-7.7); Neutrophil % 75.4 % (47-70); Platelet Count 307 K/mm3 (150-450); RBC Distribution Width CV 12.7 % (11.6-14.6); Red Blood Count 4.35 M/mm3 (4.2-5.4); White Blood Count 6.6 K/mm3 (4.4-11.0)
[2023-01-24 18:02] LABS: Hemoglobin A1c 6.3 % (3.8-5.6)
[2023-01-24 18:04] LABS: ALB/GLOB Ratio 1.1 RATIO (0.9-2.4); AST(SGOT) 10 U/L (15-37); Alanine Aminotransfer ALT/SGPT 13 U/L (13-56); Albumin, Serum 3.6 g/dL (3.2-5.0); Alkaline Phosphatase 86 U/L (45-117); Anion Gap 10 (5-15); BUN 13 mg/dL (7-18); BUN/Creat Ratio 17.8 RATIO (10-20); Calcium,Total 9.2 mg/dL (8.5-10.1); Chloride 96 mmol/L (98-107); Creatinine, Serum 0.73 mg/dL (0.55-1.02); EST Glomerular Filtration Rate 80 mL/min (>60); Est Glom Filt Rate - Afr Amer 97 mL/min (>60); Globulin 3.4 g/dL (2.2-4.2); Glucose 130 mg/dL (74-106); Sodium Level 133 mmol/L (136-145); Thyroid Stim Hormone (TSH) 2.72 uIU/mL (0.358-3.74)
[2023-01-26 09:08] LABS: Myoglobin, Serum 36 ng/mL (25-58)
== END | disposition home or self-care (01) ==
PROVIDERS: PCP Family Medicine; Referring Provider Family Medicine; Visit Provider Family Medicine
DX: R10.32 Left lower quadrant pain (principal); E11.9 Type 2 diabetes mellitus without complications; M79.606 Pain in leg, unspecified; R10.31 Right lower quadrant pain
CPT/HCPCS: 36415; 74022; 80053; 83036; 83874; 84443; 85025

== ENCOUNTER 2023-05-26 20:45 | Emergency (ER) | payer MEDICARE, SELFPAY ==
[2023-05-26 20:47] VITALS: BP 121/90; PULSE 107; RESP 20; TEMP 36.7; O2SAT 92
[2023-05-26 20:52] VITALS: BP 121/90; PULSE 107; RESP 20; TEMP 36.7; O2SAT 92
[2023-05-26 21:05] VITALS: O2SAT 88
--- NOTE | 2023-05-26 21:07 | EKG12_ITS ---
Test Reason : WEAKNESS Blood Pressure : / mmHG Vent. Rate : 103 BPM Atrial Rate : 103 BPM P-R Int : 234 ms QRS Dur : 088 ms QT Int : 314 ms P-R-T Axes : 042 034 070 degrees QTc Int : 411 ms Sinus tachycardia with 1st degree A-V block Abnormal ECG Confirmed by Que Collado ([id number]), editorial cartoonist CORRINE NICHOLS ([id number]) on 05/29/2023 10:20:19 AM Referred By: Confirmed By:Que Collado
[2023-05-26] MEDS: Ipratropium/Albuterol Sulfate 3 ML AMPUL.NEB INHALATION (21:15)
[2023-05-26 21:21] VITALS: PULSE 100; RESP 18
[2023-05-26 21:21] LABS: Absolute Lymphocyte Count 0.96 X10^3/uL (0.83-4.51); Absolute Neutrophil Count 11.9 X10^3/uL (2.0-7.7); Basophil# 0.01 X10^3/uL; Basophil% 0.1 % (0-1); Eosinophil# 0.05 X10^3/uL; Eosinophils% 0.4 % (0-5); Hematocrit 30.3 % (37-47); Hemoglobin 9.6 g/dL (12.0-15.0); Lymphocyte # 0.96 X10^3/ul (0.83-4.51); Lymphocyte % 6.8 % (19-41); Mean Corp Hgb Conc 31.7 g/dL (32-36); Mean Corpuscular Hgb 29.2 pg (27.0-32.0); Mean Corpuscular Volume 92.1 fL (81-99); Mean Platelet Vol. 10.1 fl (6.2-12.0); Monocyte# 1.06 X10^3/uL; Monocyte% 7.5 % (0-10); NRBC Flagged by Analyzer 0 % (0-5); Neutrophil # 11.86 X10^3/uL (2.7-7.7); Neutrophil % 84.1 % (47-70); Platelet Count 318 K/mm3 (150-450); RBC Distribution Width CV 17.6 % (11.6-14.6); RBC Distribution Width SD 57.9 fl (35.1-43.9); Red Blood Count 3.29 M/mm3 (4.2-5.4); White Blood Count 14.1 K/mm3 (4.4-11.0)
[2023-05-26 21:31] LABS: International Normalized Ratio 1.4; Partial Thromboplast Time 31.5 Seconds (24.1-36.2); Prothrombin Time (Protime)PT. 16.7 SECONDS (11.7-14.9)
[2023-05-26 21:37] LABS: Mucous, Urine 0 SEEN /hpf (<or=2+)
[2023-05-26 21:38] LABS: BNP,B-Type NATRIURETIC PEPTIDE 21.8 pg/mL (0-100)
[2023-05-26 21:39] LABS: AST(SGOT) 20 U/L (15-37); Alanine Aminotransfer ALT/SGPT 13 U/L (13-56); Albumin, Serum 2.7 g/dL (3.2-5.0); Alkaline Phosphatase 209 U/L (45-117); Anion Gap 8 (5-15); BUN 28 mg/dL (7-18); BUN/Creat Ratio 45.1 RATIO (10-20); Bilirubin, Direct 0.35 mg/dL (0.00-0.30); Calcium,Total 9.2 mg/dL (8.5-10.1); Chloride 106 mmol/L (98-107); Creatinine, Serum 0.62 mg/dL (0.55-1.02); EST Glomerular Filtration Rate 97 mL/min (>60); Est Glom Filt Rate - Afr Amer 117 mL/min (>60); Globulin 3.2 g/dL (2.2-4.2); Glucose 139 mg/dL (74-106); Potassium 3.7 mmol/L (3.5-5.1); Protein, Total 5.9 g/dL (6.4-8.2); Sodium Level 140 mmol/L (136-145); Troponin-I HS 8 pg/mL (3.0-54.0)
--- NOTE | 2023-05-26 21:40 | RAD_ITS ---
INDICATION: dyspnea EXAMINATION/TECHNIQUE: X-RAY - XR Chest 1 View COMPARISON: January 24, 2023 chest x-ray. FINDINGS: LINES/DEVICES: None. LUNGS: Left lung is completely opacified. Right lung is clear. No appreciable volume loss or mass effect on the trachea. MEDIASTINUM AND CARDIOVASCULAR STRUCTURES: Minimal right hilar calcifications. Mediastinum and right hilum are otherwise within normal limits. BONES AND SOFT TISSUES: Patient is side bent to the left essentially representing splinting. RAD/Chest 1 View (Portable) IMPRESSION: 1. Completely opacified left lung most commonly representing large pleural effusion. Large consolidation, mass, and less likely complete lung collapse are considered. There is however no appreciable mass effect or volume loss. There is abnormal lateral sidebending. Consider correlation with CT chest. Electronically Signed: Que Angel DO at 22:00 EDT ,
[2023-05-26 21:52] LABS: Color, Urine Yellow (Yellow); Glucose, Dipstick Normal (Normal); Ketone-Dipstick 50 mg/dl (Negative); Leukocyte Esterase-Dipstick 500 /ul (Negative); Nitrite-Dipstick Negative (Negative); Occult Blood-Urine 250 /ul (Negative); Protein-Dipstick 30 mg/dl (Negative); Urine Bilirubin Dipstick 3 mg/dL (Negative); Urine Clarity Cloudy (Clear); Urine Urobilinogen 4 mg/dl (Normal)
[2023-05-26 21:59] LABS: White Blood Cells 50-100 SEEN /hpf (0-5)
[2023-05-26 22:00] LABS: Bacteria 3+ /hpf (None Seen); Red Blood Cells-Urine 5-10 SEEN /hpf (0-5); Squamous Epithelial Cells - UA 0-5 SEEN /hpf (5-10)
[2023-05-26 22:46] VITALS: BP 95/75; PULSE 103; RESP 18; O2SAT 100
[2023-05-26] MEDS: Ceftriaxone 1 GM/50 ML BAG IV (22:47)
[2023-05-27] VITALS: BP 102/67; PULSE 94; RESP 20; O2SAT 100
--- NOTE | 2023-05-27 00:32 | CT_ITS ---
STUDY: CTA CHEST REASON FOR EXAM: Female, 87 years old patient with dyspnea and not feeling well. RADIATION DOSAGE (If Supplied By Facility): CTDIvol = ( 10.07 ) mGy, DLP = ( 285.05 ) mGycm TECHNIQUE: The examination was performed with the intravenous administration of 75 mL of IV Isovue-370. Post-processing of the angiographic images was performed, with multiplanar reformation and 3D reconstruction. Individualized dose optimization techniques were used for this CT. COMPARISON: CT of the chest dated August 14, 2018 FINDINGS: Normal enhancement of the main pulmonary artery and right and left pulmonary arteries. Normal enhancement of the bilateral peripheral pulmonary arteries. There are subsegmental pulmonary emboli to the right lower lobe. There is atherosclerotic calcification of the aortic arch with tortuosity. There is no demonstrated aortic dissection. Normal heart and pericardium. There is no obvious right heart strain. There is some hypertrophy of the left ventricular myocardium. Normal mediastinum. The right hilar area is within normal limits. The left hilar area is obscured by complete collapsed lung. Normal visualized trachea and bronchi. The trachea is deviated towards the right. The lungs are well expanded. There is complete opacification of the left hemithorax by a massive pleural effusion. There is complete collapse of the left lung. The right lung has multiple well-circumscribed lucencies probably representing centrilobular emphysema. There is a massive large left-sided pleural effusion. Normal chest wall structures. 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 The bones appear osteopenic. There is a curvature of the thoracic spine with convexity towards the right. There is degenerative arthropathy of both shoulders. There is moderate compression fracture of a lower thoracic vertebral body. Normal visualized upper abdomen. CT/CTA Chest W/WO Contrast IMPRESSION: 1. Subsegmental emboli in the right lower lobe. 2. No evidence for right heart strain. 3. Massive left-sided pleural effusion with displacement of the hemidiaphragm caudally and displacement of the mediastinum and heart towards the right suggesting some tension. N.B. : The above Results were Read Back by Kira Mazariegos MD to Jose Nation DO, and understanding confirmed on 05/27/2023 01:34:32 (ET). Electronically Signed: Kira Mazariegos MD at 1:42 EDT ,
--- NOTE | 2023-05-27 00:44 | ED.RN ---
Dr. Nation attempted to inject lidocaine and withdrew dark red blood. Dr. Nation then used empty syringe and withdrew 5cc of dark red blood. Dr. Nation then explained that he was not going to complete the thoracocentesis and will be transferring pt to [facility]. Late entry for 2335 05/26/23.
--- NOTE | 2023-05-27 01:54 | EDS_ITS ---
HPI History of Present Illness Chief Complaint: Weakness Informant: patient, parent and EMS Narrative Narrative: 87-year-old female brought to the emergency room with chief complaint of dyspnea. Patient has had a progressive dyspnea over months. She has been seen by a local pulmonology for COPD. She has a remote history of breast cancer treated with radiation therapy. Reportedly she has a known scar on her lung that they follow. Family states she was seen by pulmonology last fall. They note over the past couple weeks dyspnea is gotten worse. They note over the past 3 days she really has not gotten out of bed and that she is not eating. They note that she has now been incontinent. They have been doing extremely well at home and keeping her clean and caring for her and her debilitated state. She is not on any reported blood thinners. She is a known diabetic. Patient is very hard of hearing. She currently is denying any pain to me. [facility] Medical History Acute dehydration Acute hypokalemia Breast cancer, left breast Diabetes mellitus Dyspnea on exertion Hyperlipidemia Left atrial enlargement Leukocytosis Urinary tract infection Home Medications cartilage 40 mg-collagen II-boron 5 mg-hyaluronate sod 3.3 mg tablet 1 ea PO DAILY supplement 03/01/16 [History Last Taken Unknown] metformin 500 mg tablet 1,000 mg PO BID dm 11/21/17 [History Last Taken Unknown] letrozole 2.5 mg tablet 2.5 mg PO DAILY breast ca 11/18/20 [History Last Taken Unknown] fluticasone propionate 50 mcg/actuation nasal spray,suspension (Flonase Allergy Relief) 1 spray intranasal DAILY allergies 05/18/21 [History Last Taken Unknown] ergocalciferol (vitamin D2) 1,250 mcg (50,000 unit) capsule (Vitamin D2) 1,250 mcg PO QWEEK supplement 08/15/21 [History Last Taken Unknown] amlodipine 10 mg tablet 10 mg PO DAILY #30 tabs 08/16/21 [Rx Last Taken Unknown] aspirin 81 mg chewable tablet 81 mg PO BREAKFAST #1 TAB 08/16/21 [Rx Last Taken Unknown] atorvastatin 20 mg tablet (Lipitor) 20 mg PO DAILY #30 tabs 08/16/21 [Rx Last Taken Unknown] metoprolol tartrate 25 mg tablet 12.5 mg (1/2 x 25 mg) PO BID #30 tabs 08/16/21 [Rx Last Taken Unknown] Disability Placard #1 ea 06/16/22 [Rx Last Taken Unknown] tiotropium 2.5 mcg-olodaterol 2.5 mcg/actuation mist for inhalation (Stiolto Respimat) 2 puff inhalation DAILY #3 ea 01/09/23 [Rx Last Taken Unknown] albuterol sulfate 90 mcg/actuation aerosol inhaler 2 puff inhalation Q4H PRN Asthma #18 grams 04/05/23 [Rx Last Taken Unknown] cetirizine 10 mg capsule (All Day Allergy (cetirizine)) 10 mg PO DAILY 05/26/23 [History Last Taken Unknown] Allergy/AdvReac Type Severity Reaction Status Date / Time No Known Allergies Allergy Verified 05/26/23 20:47 Family History Father CAD (coronary artery disease) Hypertension Myocardial infarction Surgical History H/O left mastectomy (~1998) H/O right mastectomy (~03/13/16) History of left heart catheterization Social History household members: none housing: house Smoking Status: Never smoker alcohol intake: never substance use type: does not use additional social history: Ambulates with a walker and has a Hoveround at home as well ROS ROS ED Constitutional Constitutional ED: Denies chills, fever(s) or weight loss Eyes Eyes: Denies change in vision or diplopia ENT ENT ED: Denies ear pain, rhinorrhea or sore throat Cardiovascular Cardiovascular: Denies chest pain, orthopnea, palpitations or racing heartbeat Respiratory/Chest Respiratory/Chest: Reports cough, dyspnea and dyspnea on exertion; Denies orthopnea Gastrointestinal Gastrointestinal: Reports other Details: Decreased oral consumption ; Denies abdominal pain, diarrhea, nausea or vomiting Genitourinary Genitourinary ED: Reports other Details: Urinary incontinence ; Denies dysuria, hematuria or urinary frequency Musculoskeletal Musculoskeletal: Denies arthralgias or myalgias Integumentary Denies abscess or rash Neurologic Neurologic: Denies headache(s) or weakness Psychiatric Psychiatric: Denies anxiety, depression, suicidal ideation or suicidal thoughts Endocrine Endocrinology: Denies polydipsia, polyphagia or polyuria Allergic/Immunologic Allergic/Immunologic ED: Denies mouth swelling, tongue swelling or urticaria EXAM Physical Exam Narrative Exam Narrative: There is a strong smell of urine from the patient. She appears in no acute distress. She appears very frail Const Vital Signs: 05/26/23 20:47 05/26/23 20:52 05/26/23 20:54 Temperature 98.1 F 98.1 F Temperature Source Oral Oral Pulse Rate 107 H 107 H Respiratory Rate 20 H 20 H Respiratory Pattern Normal Blood Pressure 121/90 H 121/90 H Blood Pressure Mean 100 100 Pulse Ox 92 92 Oxygen Delivery Method Room Air Room Air Oxygen Flow Rate (L/min) 05/26/23 21:21 05/26/23 22:46 05/26/23 21:05 Temperature Temperature Source Pulse Rate 100 103 H Respiratory Rate 18 18 Respiratory Pattern Blood Pressure 95/75 Blood Pressure Mean 81 Pulse Ox 100 88 Oxygen Delivery Method Nasal Cannula Room Air Oxygen Flow Rate (L/min) 2 05/27/23 00:00 Temperature Temperature Source Pulse Rate 94 Respiratory Rate 20 H Respiratory Pattern Blood Pressure 102/67 Blood Pressure Mean 78 Pulse Ox 100 Oxygen Delivery Method Nasal Cannula Oxygen Flow Rate (L/min) 2 Positive well nourished, well developed and cachectic Constitutional Narrative: Very frail elderly female very hard of hearing laying on the bed mostly on her left side General Appearance ED: well developed and cachectic Nutritional Appearance: cachectic HEENT Reports normocephalic, head/scalp atraumatic and moist mucous membranes Eyes PERRL and EOMs intact bilaterally Neck no lymphadenopathy, supple and no JVD Resp Resp Narrative: Patient has short shallow breaths slightly tachypneic. There are absent lung sounds on the left. There is dullness to percussion. Cardio regular rate, regular rhythm and no murmurs Rate: tachycardic GI normal to inspection, nondistended, normoactive bowel sounds and non-tender Palpation: soft Back/Spine no CVA tenderness and normal ROM Extremity normal to inspection General Extremety ED: Negative for edema General Extremity: Negative for edema Neuro oriented x3 and CN's II-XII intact bilaterally Sensorium / Orientation: alert Motor Exam: strength 5/5 throughout Psych Mood & Affect: Negative for depressed or tearful Skin no rashes or lesions noted and no wounds MDM MDM MDM Narrative Medical decision making narrative: My independent or potation of the chest x-ray is a tension pleural effusion on the left. White count 14.1 hemoglobin 9.6 platelet count of 318 coags with an INR 1.4 PTT of 31.5. Sodium potassium within normal limits anion gap of 8 BUN of 28 creatinine 0.62. Glucose 139 liver enzymes showed an alk phos 209 direct bili 0.35 and a total bilirubin 0.8 urinalysis shows obvious infection 3+ bacteria 50-100 white cells 5-10 red blood cells 500 leukocyte esterase. This is sent for culture. Patient did receive Rocephin. Patient received supplemental oxygen but is very difficult for her to keep it on. I spoke at length with family and and recommending that we perform a thoracentesis to help alleviate her labored breathing. I spoke about risk benefits and the potential for reaccumulation reexpansion edema respiratory complications bleeding and inf ection. They agreed using written informed consent Patient was sat on the side of the bed using ultrasound guidance identified lower posterior ribs and a pleural effusion on ultrasound. The area was prepped and washed with chlorhexidine rinse. Sterile field established. 1% lidocaine was used to anesthetize the skin which was then advanced just over the lower rib and the size down to the pleural space. I entered the pleural space with a 23- gauge needle and withdrew to find black like fluid. I aspirated about 10 cc of this fluid withdrew the needle. I examined the fluid did not see clots. This seemed highly unusual and given my lack further medical backup decided to abort the procedure. Area was washed and Band-Aid applied. The fluid did not clot once I placed that inside the tray. It did not appear to be an acute hemothorax or obvious chylothorax. I spoke with the family and going to recommend that we transfer her to tertiary care facility. I spoke with [facility] ICU Dr. Lim. She has been accepted there. They have requested a CT of the chest. I performed a CTA while we were waiting for transfer squad. The CTA results were discussed with the radiologist. Concern for subsegmental pulmonary embolism on the right lower lobe. Massive pleural effusion on the left with tension-like component. The diagnosis of pulmonary embolism is a challenging treatment problem at this time. I am not seeing an elevation of her cardiac enzymes. I am not seeing any significant cardiac compromise. Her heart rate is actually down into the high 80s while resting. She is receiving supplemental oxygen is 100% on room air. I am not sure what to make on this black fluid but I am concerned with the tension component that there could be an area that might start bleeding once we remove it. I think as long as she is stable at this point unguinal with hold full anticoagulation till she can be assessed at the trauma center and get the fluid drained. Talk with the family and we did shared decision making to come to this decision as I think it is the safest for the patient at this time. The exact underlying etiology may be able to be fully elucidated once the lung is reexpanded. Concerned of course for some underlying malignancy. We talked about possible infectious and autoimmune etiologies. History & Record Review Discussion w/independent historian: EMS personnel, Patient and Family Lab Data Attestation: I reviewed the patient's lab results. Labs: Laboratory Results - last 24 hr 05/26/23 05/26/23 21:05 21:30 WBC 14.1 H RBC 3.29 L Hgb 9.6 L Hct 30.3 L MCV 92.1 MCH 29.2 MCHC 31.7 L RDW Std Deviation 57.9 H RDW Coeff of Gil 17.6 H Plt Count 318 MPV 10.1 Immature Gran % (Auto) 1.100 H Neut % (Auto) 84.1 H Lymph % (Auto) 6.8 L Stark % (Auto) 7.5 Eos % (Auto) 0.4 Baso % (Auto) 0.1 Absolute Neuts (auto) 11.9 H Absolute Lymphs (auto) 0.96 Nucleated RBC % 0 PT 16.7 H INR 1.4 APTT 31.5 Sodium 140 Potassium 3.7 Chloride 106 Carbon Dioxide 26.0 Anion Gap 8 BUN 28 H Creatinine 0.62 Est GFR (MDRD) Af Amer 117 Est GFR (MDRD) Non-Af 97 BUN/Creatinine Ratio 45.1 H Glucose 139 H Calcium 9.2 Total Bilirubin 0.80 Direct Bilirubin 0.35 H AST 20 ALT 13 Alkaline Phosphatase 209 H Troponin I High Sens 8 B-Natriuretic Peptide 21.8 Total Protein 5.9 L Albumin 2.7 L Globulin 3.2 Urine Color Yellow Urine Clarity Cloudy Urine pH 5.0 Ur Specific [place] 1.020 Urine Protein 30 H Urine Glucose (UA) Normal Urine Ketones 50 H Urine Occult Blood 250 H Urine Nitrite Negative Urine Bilirubin 3 H Urine Urobilinogen 4 H Ur Leukocyte Esterase 500 H Urine RBC 5-10 SEEN Urine WBC 50-100 SEEN Ur Squamous Epith Cells 0-5 SEEN Urine Bacteria 3+ Urine Mucus 0 SEEN Radiography Diagnostic Testing: Clinical Impression(s) from Imaging Studies Chest X-Ray 05/26/23 21:40 IMPRESSION: 1. Completely opacified left lung most commonly representing large pleural effusion. Large consolidation, mass, and less likely complete lung collapse are considered. There is however no appreciable mass effect or volume loss. There is abnormal lateral sidebending. Consider correlation with CT chest. Electronically Signed: Que Angel DO at 22:00 EDT , Chest CTA 05/27/23 00:32 IMPRESSION: 1. Subsegmental emboli in the right lower lobe. 2. No evidence for right heart strain. 3. Massive left-sided pleural effusion with displacement of the hemidiaphragm caudally and displacement of the mediastinum and heart towards the right suggesting some tension. N.B. : The above Results were Read Back by Kira Mazariegos MD to Jose Nation DO, and understanding confirmed on 05/27/2023 01:34:32 (ET). Electronically Signed: Kira Mazariegos MD at 1:42 EDT , ADDENDUM: 05/27/23 0148 IMPRESSION: 1. Subsegmental emboli in the right lower lobe. 2. No evidence for right heart strain. 3. Massive left-sided pleural effusion with displacement of the hemidiaphragm caudally and displacement of the mediastinum and heart towards the right suggesting some tension. N.B. : The above Results were Read Back by Kira Mazariegos MD to Jose Nation DO, and understanding confirmed on 05/27/2023 01:34:32 (ET). Electronically Signed: Kira Mazariegos MD at 1:42 EDT , EKG Initial EKG: Attestation: I personally reviewed and interpreted this EKG as follows: Comments: Sinus tachycardia with a first-degree AV block ventricular rate of 103 bpm Discharge Plan Triage Chief Complaint: Weakness ED Provider: Jose Nation Dx/Rx/DC Orders Clinical Impression: Acute dyspnea, Pleural effusion, Acute UTI Prescriptions: No Action metformin 500 mg tablet 1,000 mg PO BID letrozole 2.5 mg tablet 2.5 mg PO DAILY fluticasone propionate [Flonase Allergy Relief] 50 mcg/actuation spray,suspension 1 spray intranasal DAILY Rx Instructions: administer into each nostril (DME) Disability Placard See Rx Instructions .Route .MEDSUPPLY Qty: 1 0RF Rx Instructions: Expires 06/17/2027 [id number] 1 EACH tablet 1 ea PO DAILY ergocalciferol (vitamin D2) [Vitamin D2] 1,250 mcg (50,000 unit) Capsule 1,250 mcg PO QWEEK amlodipine 10 mg Tablet 10 mg PO DAILY Qty: 30 0RF aspirin 81 mg Tablet,Chewable 81 mg PO BREAKFAST Qty: 1 0RF metoprolol tartrate 25 mg tablet 12.5 mg PO BID Qty: 30 0RF atorvastatin [Lipitor] 20 mg tablet 20 mg PO DAILY Qty: 30 0RF All Day Allergy (cetirizine) 10 mg capsule 10 mg PO DAILY Stiolto Respimat 2.5-2.5 mcg/actuation mist 2 puff INHALATION DAILY Qty: 3 3RF albuterol sulfate 90 mcg/actuation HFA aerosol inhaler 2 puff INHALATION Q4H PRN (Reason: Asthma) Qty: 18 6RF Primary Care Provider: Sacha Kimble Referrals: Sacha Kimble MD [Primary Care Provider] - Disposition Disposition: Acute Care Hospital Discharge Location: [facility]
[2023-05-27 02:00] VITALS: BP 105/69; PULSE 93; RESP 14; O2SAT 100
[2023-05-27 03:04] VITALS: BP 105/69; PULSE 93; RESP 14; TEMP 36.3; O2SAT 100
== END 2023-05-27 03:05 | disposition short-term general hospital (02) ==
PROVIDERS: Emergency Provider Emergency Medicine; PCP Family Medicine; Visit Provider Emergency Medicine
DX: J90 Pleural effusion, not elsewhere classified (principal); J44.9 Chronic obstructive pulmonary disease, unspecified; E11.9 Type 2 diabetes mellitus without complications; N39.0 Urinary tract infection, site not specified; H91.90 Unspecified hearing loss, unspecified ear; Z85.3 Personal history of malignant neoplasm of breast; E78.5 Hyperlipidemia, unspecified; R94.31 Abnormal electrocardiogram [ECG] [EKG]; R00.0 Tachycardia, unspecified; I44.0 Atrioventricular block, first degree; Z79.82 Long term (current) use of aspirin; R05.9 Cough, unspecified; Z87.440 Personal history of urinary (tract) infections
CPT/HCPCS: 32555; 71045; 71275; 80048; 80076; 81001; 83880; 84484; 85025; 85610; 85730; 87077; 87086; 87088; 87186; 93005; 94640; 99285; J7050; Q9967; A4216